=== PATIENT | male | born 1945 | race Caucasian/White ===

== ENCOUNTER 2018-05-15 20:47 | Inpatient (IN) | payer MEDICARE, MEDICAID ==
[2018-05-15] MEDS ORDERED: DILTIAZEM HCL INJ 25 MG/5 ML VIAL IV ONE (20:54)
[2018-05-15] MEDS ORDERED: ASPIRIN 81 MG TABLET, CHEWABLE PO ONE (20:54)
[2018-05-15] MEDS ORDERED: DILTIAZEM HCL/D5W 125 MG/125 ML RTUINJ IV PRN (20:54)
[2018-05-15] MEDS ORDERED: DILTIAZEM HCL INJ 25 MG/5 ML VIAL ONE ×2 (20:59→21:08)
--- NOTE | 2018-05-15 21:02 | ER Document Report ---
ED Cardiac - General Chief Complaint: Palpitations Stated Complaint: PALPITATIONS Time Seen by Provider: 05/15/18 20:54 Notes: 72-year-old male to emergency department chief complaint of chest pain and tachycardia. EMS arrived to find patient with a heart rate in the 170s-180s range. EKG by EMS revealed atrial fibrillation with rapid ventricular response. Cardizem protocol began. Patient received 25 mg bolus of Cardizem followed by diltiazem drip. Rate came down according to EMS to about 108 but by the time he arrived to the emergency department heart rate was back up into the 160-170 range. Patient denied any major symptoms at this time. Denies any chest pain or shortness of breath. Patient does smoke. Has been taking all of his regular medications. The time that EMS arrived he was having some chest pain. Patient did receive aspirin. TRAVEL OUTSIDE OF THE [place] IN LAST 30 DAYS: No - HPI Patient complains to provider of: Chest pain, Chest tightness, Palpitations Was the onset of pain: Sudden - Related Data Allergies/Adverse Reactions: levofloxacin [From Levaquin] Allergy (Unknown, Verified 09/19/15 12:38) uncertain fluticasone propionate [From Advair Diskus] Adverse Reaction (Severe, Verified 09/19/15 12:38) "Can't use my arms" salmeterol xinafoate [From Advair Diskus] Adverse Reaction (Severe, Verified 03/29 12:38) "Can't use my arms" varenicline tartrate [From Chantix] Adverse Reaction (Intermediate, Verified 03/29 12:38) Hallucinations Past Medical History - General Information source: Patient - Social History Smoking Status: Current Every Day Smoker Cigarette use (# per day): Yes Frequency of alcohol use: None Drug Abuse: None Lives with: Alone Family History: CAD, DM - Past Medical History Cardiac Medical History: Reports: Hx Heart Attack - 1998, Hx Hypertension Denies: Hx Atrial Fibrillation, Hx Coronary Artery Disease Pulmonary Medical History: Reports: Hx Asthma, Hx Bronchitis, Hx COPD Denies: Hx Pneumonia Neurological Medical History: Denies: Hx Cerebrovascular Accident, Hx Seizures Endocrine Medical History: Reports: Hx Diabetes Mellitus Type 2 GI Medical History: Reports: Hx Ulcer - HX OF. Denies: Hx Hepatitis, Hx Hiatal Hernia Musculoskeletal Medical History: Reports Hx Arthritis Psychiatric Medical History: Reports: Hx Depression Denies: Hx Attention Deficit Hyperactivity Disorder Infectious Medical History: Denies: Hx Hepatitis Past Surgical History: Reports: Hx Bowel Surgery - sigmoid colon resection 2007. Denies: Hx Open Heart Surgery, Hx Pacemaker - Immunizations Hx Diphtheria, Pertussis, Tetanus Vaccination: No Review of Systems - Review of Systems Notes: Constitutional: denies: Chills, Diaphoresis, Fever, Malaise, Weakness EENT: denies: Eye discharge, Blurred vision, Tearing, Double vision, Nose congestion, Nose discharge, Throat swelling, Mouth pain Cardiovascular: Complaining of chest pain and tachycardia. Heart is racing. Respiratory: denies: Cough, Hurts to breathe, Wheezing, Shortness of breath Gastrointestinal: denies: Abdominal pain, Diarrhea, Nausea, Vomiting, Black stools Genitourinary: denies: Burning, Dysuria, Discharge, Frequency, Flank pain, Hematuria Musculoskeletal: denies: Joint pain, Joint swelling, Muscle pain, Muscle stiffness, back pain Hematologic/Lymphatic: denies: Anemia, Easy bleeding, Easy bruising, Blood clots Neurological/Psychological: denies: Confusion, Dementia, Depression, Loss of consciousness Skin: Denies any rash, lesions, breakdown Constitutional: denies: Fever, Malaise, Weakness Physical Exam - Vital signs Vitals: Temp Pulse Resp BP Pulse Ox 98.1 F 164 H 22 H 180/96 H 98 05/15/18 20:48 05/15/18 20:48 05/15/18 20:48 05/15/18 20:48 05/15/18 20:48 Interpretation: Tachycardic - General General appearance: Appears well, Alert - HEENT Head: Normocephalic, Atraumatic Eyes: Normal Pupils: PERRL - Respiratory Respiratory status: No respiratory distress Chest status: Nontender Breath sounds: Normal Chest palpation: Normal - Cardiovascular Rhythm: Regular, Tachycardia Heart sounds: Normal auscultation Murmur: No - Abdominal Inspection: Normal Distension: No distension Bowel sounds: Normal Tenderness: Nontender Organomegaly: No organomegaly - Back Back: Normal, Nontender - Extremities General upper extremity: Normal inspection, Nontender, Normal color, Normal ROM , Normal temperature General lower extremity: Normal inspection, Nontender, Normal color, Normal ROM , Normal temperature, Normal weight bearing. No: Diego's sign - Neurological Neuro grossly intact: Yes Cognition: Normal Orientation: AAOx4 Sneha Coma Scale Eye Opening: Spontaneous [place] Coma Scale Verbal: Oriented Sneha Coma Scale Motor: Obeys Commands [place] Coma Scale Total: 15 Speech: Normal Motor strength normal: LUE, RUE, LLE, RLE Sensory: Normal - Psychological Associated symptoms: Normal affect, Normal mood - Skin Skin Temperature: Warm Skin Moisture: Dry Skin Color: Normal Course - Re-evaluation Re-evalutation: 05/15/18 22:06 Patient's heart rate now 96. Blood pressure 118/69. On diltiazem drip. Patient does have slightly elevated troponin but this is not unexpected at his age and his heart rate. Patient has already received aspirin. No chest pain at this time. At this time will consult with hospitalist for admission. Anticipate admission shortly. 05/15/18 22:21 Consulted computer lab para professional, Dr. [place]. Recommend starting patient on Lovenox. Repeating EKG. He will see patient in the morning. Will consult with hospitalist for admission at this time. - Vital Signs Vital signs: Temp Pulse Resp BP Pulse Ox 98.1 F 164 H 18 119/76 95 05/15/18 20:48 05/15/18 20:48 05/15/18 21:32 05/15/18 21:32 05/15/18 21:32 - Laboratory Result Diagrams: 05/15/18 20:58 05/15/18 20:58 Laboratory results interpreted by me: 05/15/18 05/15/18 05/15/18 20:58 20:58 20:58 WBC 10.8 H RBC 5.69 H RDW 16.7 H Eosinophils % 6.6 H Absolute Eosinophils 0.7 H BUN 24 H Creatinine 1.63 H Est GFR ( Amer) 51 L Est GFR (Non-Af Amer) 42 L Glucose 164 H Creatine Kinase 179 H CK-MB (CK-2) 5.12 H - EKG Interpretation by Me Additional EKG results interpreted by me: 05/15/18 21:23 Patient with a wide complex tachycardia with heart rates in the 160s. No ST segment elevation or depression. Critical Care Note - Critical Care Note Total time excluding time spent on procedures (mins): 45 Comments: Tachycardia, hypertension, arrhythmia Discharge - Discharge Clinical Impression: Atrial fibrillation with rapid ventricular response, Elevated troponin I level Chronic renal disease Qualifiers: Chronic kidney disease stage: unspecified stage Qualified Code(s): N18.9 - Chronic kidney disease, unspecified Condition: Good Disposition: ADMITTED INPATIENT Admitting Provider: Hospitalist - [facility] Admitted: [facility] Referrals: Yash DIXON MD [Primary Care Provider] - Follow up as needed
[2018-05-15 21:10] LABS: ABSOLUTE BASOPHILS # (AUTO) 0.1 10^3/uL (0.0-0.2); ABSOLUTE EOSINOPHILS # (AUTO) 0.7 10^3/uL (0.0-0.6); ABSOLUTE LYMPHOCYTES (AUTO) 1.9 10^3/uL (0.5-4.7); ABSOLUTE MONOCYTES (AUTO) 0.8 10^3/uL (0.1-1.4); ABSOLUTE NEUT (AUTO) 7.2 10^3/uL (1.7-8.2); BASOPHILS % (AUTO) 1.2 % (0-2); EOSINOPHILS % (AUTO) 6.6 % (0-6); HEMATOCRIT 49.1 % (37.9-51.0); HEMOGLOBIN 16.3 g/dL (13.5-17.0); LYMPHOCYTES % (AUTO) 17.5 % (13-45); MEAN CORPUSCULAR HEMOGLOBIN 28.6 pg (27.0-33.4); MEAN CORPUSCULAR HGB CONC 33.2 g/dL (32.0-36.0); MEAN CORPUSCULAR VOLUME 86 fl (80-97); MONOCYTES % (AUTO) 7.8 % (3-13); PLATELET COUNT 247 10^3/uL (150-450); RED BLOOD COUNT 5.69 10^6/uL (4.35-5.55); RED CELL DISTRIBUTION WIDTH 16.7 % (11.5-14.0); SEGMENTED NEUTROPHILS % (AUTO) 66.9 % (42-78); TOTAL CELLS COUNTED % (AUTO) 100 %; WHITE BLOOD COUNT 10.8 10^3/uL (4.0-10.5)
[2018-05-15 21:26] LABS: ALANINE AMINOTRANSFERASE 32 U/L (21-72); ALBUMIN 4.3 g/dL (3.5-5.0); ALKALINE PHOSPHATASE 87 U/L (38-126); ANION GAP 15 (5-19); ASPARTATE AMINO TRANSFERASE 22 U/L (17-59); BILIRUBIN,DIRECT 0.3 mg/dL (0.0-0.4); BILIRUBIN,TOTAL 0.4 mg/dL (0.2-1.3); BLOOD UREA NITROGEN 24 mg/dL (7-20); CALCIUM 9.7 mg/dL (8.4-10.2); CARBON DIOXIDE 25 mmol/L (22-30); CHLORIDE 102 mmol/L (98-107); CREATINE KINASE 179 U/L (55-170); GLUCOSE 164 mg/dL (75-110); SODIUM 141.9 mmol/L (137-145); TOTAL PROTEIN 7.9 g/dL (6.3-8.2)
--- NOTE | 2018-05-15 21:28 | RADIOLOGY REPORT (SQ) ---
EXAM DESCRIPTION: CHEST SINGLE VIEW COMPLETED DATE/TIME: 05/15/2018 9:09 pm REASON FOR STUDY: sob COMPARISON: 06/29/2014 EXAM PARAMETERS: NUMBER OF VIEWS: One view. TECHNIQUE: Single frontal radiographic view of the chest acquired. RADIATION DOSE: NA LIMITATIONS: None. FINDINGS: LUNGS AND PLEURA: No opacities, masses or pneumothorax. No pleural effusion. MEDIASTINUM AND HILAR STRUCTURES: No masses. Contour normal. HEART AND VASCULAR STRUCTURES: Heart normal in size. Normal vasculature. BONES: No acute findings. HARDWARE: None in the chest. OTHER: No other significant finding. IMPRESSION: NO ACUTE RADIOGRAPHIC FINDING IN THE CHEST. TECHNICAL DOCUMENTATION: JOB ID: [id number] [facility]- All Rights Reserved Reading location - IP/workstation name: [email or web address]
[2018-05-15 21:39] LABS: CREATINE KINASE MB 5.12 ng/mL (<4.55)
[2018-05-15 21:42] LABS: TROPONIN I 0.227 ng/mL
--- NOTE | 2018-05-15 21:53 | EKG REPORT ---
SEVERITY:- ABNORMAL ECG - SUPRAVENTRICULAR TACHYCARDIA CONSIDER PAT VS AFL WITH 2:1 CONDUCTION REPOLARIZATION ABNORMALITY, PROB RATE RELATED : Confirmed by: Stephany Conway 15-May-2018 21:52:38
[2018-05-15] MEDS ORDERED: NORMAL SALINE 1000 ML 1,000 ML IV ONE (21:59)
[2018-05-15] MEDS: ENOXAPARIN SODIUM INJ 80 MG/0.8 ML DISP.SYRIN SUBCUT SCH (22:39)
[2018-05-15 22:42] LABS: INTERNATIONAL RATION (INR) 0.88; PROTHROMBIN TIME 12.4 SEC (11.4-15.4)
[2018-05-15 22:43] LABS: PARTIAL THROMBOPLASTIN TIME 30.2 SEC (23.5-35.8)
[2018-05-15 23:06] LABS: APPEARANCE,URINE CLEAR; BILIRUBIN,URINE NEGATIVE (NEGATIVE); COLOR,URINE STRAW; GLUCOSE, URINE 50 mg/dL (NEGATIVE); KETONES,URINE NEGATIVE (NEGATIVE); LEUKOCYTE ESTERASE,URINE NEGATIVE (NEGATIVE); NITRITE,URINE NEGATIVE (NEGATIVE); PROTEIN,URINE 100 mg/dL (NEGATIVE); URINE SPECIFIC GRAVITY 1.009; UROBILINOGEN,URINE NEGATIVE mg/dL (<2.0)
--- NOTE | 2018-05-16 00:34 | PDOC H&P ---
History of Present Illness Admission Date/PCP: 05/15/18 22:36 Yash DIXON MD Patient complains of: Chest pain, shortness of breath, palpitation. History of Present Illness: BETSY VINES is a 72 year old male with past medical history of CAD and OR in 1998, hypertension, COPD who is currently active smoker, diabetes presents to the emergency room with complaint of chest pain with palpitation and shortness of breath. Patient's chest pain started today evening at rest associated with shortness of breath. Patient denied diaphoresis or dizziness. Patient denies fever or chills or cough. Patient reported chest pain and retrosternal area which was 6 out of 10. EMS arrived patient was found to be in A. fib with RVR with heart rate of 180. Patient does not have a history of atrial fibrillation. On arrival to emergency room he was afebrile with initial heart rate of 164. Blood pressure was elevated. EKG showed atrial fibrillation with RVR and ST T changes in lateral leads. Patient was given nitroglycerin and was started on Cardizem drip after bolus. Patient is currently chest pain-free. His chest x- ray showed no acute process. Troponin came back elevated at 0.22. BNP is normal. Creatinine is 1.6; which is around his baseline. Yard Jacker was consulted from the emergency room. Recommended heparin Lovenox full dose along with aspirin. Patient was referred to hospital service. Patient is currently in sinus rhythm with controlled rate. Past Medical History Cardiac Medical History: Reports: Myocardial Infarction - 1998, Hypertension Denies: Atrial Fibrillation, Coronary Artery Disease Pulmonary Medical History: Reports: Asthma, Bronchitis, Chronic Obstructive Pulmonary Disease (COPD) Denies: Pneumonia Neurological Medical History: Denies: Seizures Endocrine Medical History: Reports: Diabetes Mellitus Type 2 GI Medical History: Denies: Hepatitis, Hiatal Hernia Musculoskeltal Medical History: Reports: Arthritis Psychiatric Medical History: Reports: Depression Denies: Attention Deficit Hyperactivity Disorder Hematology: Denies: Anemia, Sickle Cell Disease Past Surgical History Past Surgical History: Denies: Pacemaker Social History Information Source: Patient Lives with: Alone Smoking Status: Current Every Day Smoker Frequency of Alcohol Use: None Hx Recreational Drug Use: No Hx Prescription Drug Abuse: No Family History Family History: CAD, DM Parental Family History Reviewed: No Children Family History Reviewed: No Sibling(s) Family History Reviewed.: No Medication/Allergy Home Medications: Albuterol Sulfate [Albuterol Sulfate 2.5mg/3 mL] 1 vial IH Q4 PRN #60 vial 06/29 Amlodipine Besylate 10 mg PO DAILY 06/29/14 Clonidine HCl [Catapres] 0.4 mg PO TID 06/29/14 Diazepam [Valium 5 mg Tablet] 5 mg PO BID PRN 06/29/14 Glyburide [Diabeta 2.5 mg Tablet] 2.5 mg PO BID 06/29/14 Hydrochlorothiazide 25 mg PO DAILY 06/29/14 Levothyroxine Sodium [Synthroid 0.112 mg Tablet] 0.112 mcg PO DAILY 06/29/14 Losartan Potassium 100 mg PO DAILY 06/29/14 Oxycodone HCl/Acetaminophen [Oxycodone-Acetaminophen 5-325] 1 - 2 tab PO PRN Budesonide/Formoterol Fumarate [Symbicort HFA 160-4.5 mcg Inhaler 6 gm] 2 puff IH Q12 #1 inhaler 07/01/14 Tiotropium [place] [Spiriva Handihaler 5 Cap/Kit (18 Mcg/Cap)] 1 cap IH QHS #0 kit 07/01/14 Budesonide/Formoterol Fumarate [Symbicort HFA 160-4.5 mcg Inhaler 6 gm] 2 PO BID 09/21/15 Metformin HCl 2 tab PO BID 09/21/15 Allergies/Adverse Reactions: levofloxacin [From Levaquin] Allergy (Unknown, Verified 09/19/15 12:38) uncertain fluticasone propionate [From Advair Diskus] Adverse Reaction (Severe, Verified 09/19/15 12:38) "Can't use my arms" salmeterol xinafoate [From Advair Diskus] Adverse Reaction (Severe, Verified 03/29 12:38) "Can't use my arms" varenicline tartrate [From Chantix] Adverse Reaction (Intermediate, Verified 03/29 12:38) Hallucinations Review of Systems All systems: reviewed and no additional remarkable complaints except as stated Physical Exam Vital Signs: Temp Pulse Resp BP Pulse Ox 98.1 F 164 H 15 137/76 H 95 05/15/18 20:48 05/15/18 20:48 05/15/18 23:16 05/15/18 23:16 05/15/18 23:26 Intake & Output 05/14/18 05/15/18 05/16/18 06:59 06:59 06:59 Intake Total 1000 Balance 1000 General appearance: PRESENT: no acute distress, cooperative, well-developed, well-nourished Head exam: PRESENT: atraumatic, normocephalic Eye exam: ABSENT: conjunctival injection, conjunctiva pink, conjunctiva pale, EOMI, nystagmus, periorbital swelling, PERRLA, scleral icterus, other Ear exam: ABSENT: bleeding, drainage, normal external ear exam, TM's normal bilaterally, other Mouth exam: PRESENT: moist Neck exam: ABSENT: carotid bruit, JVD, lymphadenopathy Respiratory exam: PRESENT: decreased breath sounds, wheezes Cardiovascular exam: PRESENT: irregular rhythm, +S1, +S2, tachycardia. ABSENT: rubs, systolic murmur GI/Abdominal exam: PRESENT: normal bowel sounds, soft. ABSENT: organolmegaly, tenderness Rectal exam: PRESENT: deferred Gentrourinary exam: ABSENT: ecchymosis, erythema, lacerations, lesions, scrotal swelling, testicular tenderness, urethral discharge, indwelling catheter, other Extremities exam: ABSENT: calf tenderness, clubbing, full ROM, joint swelling, pedal edema, tenderness, +1 edema, +2 edema, other Musculoskeletal exam: PRESENT: ambulatory Neurological exam: PRESENT: alert, altered, awake, oriented to person, oriented to place, oriented to time, oriented to situation, CN II-XII grossly intact. ABSENT: motor sensory deficit Psychiatric exam: ABSENT: suicidal ideation Skin exam: ABSENT: rash Results Laboratory Results: All labs reviewed. EKG Comments: Personally reviewed by me EKG shows atrial fibrillation with RVR and nonspecific ST-T changes in lateral leads. Impressions: Chest X-Ray 05/15/18 20:54 IMPRESSION: NO ACUTE RADIOGRAPHIC FINDING IN THE CHEST. Status: Image reviewed by me Assessment & Plan - Diagnosis (1) Atrial fibrillation with rapid ventricular response Is this a current diagnosis for this admission?: Yes Plan: Patient with new onset atrial fibrillation with RVR. Patient is started on Cardizem drip however he is converted back to sinus rhythm with rate is controlled. We will continue Lovenox full dose. Will continue cycle cardiac enzymes. Patient is currently chest pain-free. Consult cardiology service. (2) Elevated troponin I level Is this a current diagnosis for this admission?: Yes Plan: Patient had a chest pain which has resolved now. Possible non-ST elevation OR or rate induced demand ischemia. Will continue serial cardiac enzyme and continue aspirin and start on Lipitor and beta-kimmie. Cardiology consultation. 2D echo cardiogram. (3) COPD (chronic obstructive pulmonary disease) Is this a current diagnosis for this admission?: No Plan: Stable without exacerbation. Will continue as needed nebs. (4) CKD (chronic kidney disease), stage III Is this a current diagnosis for this admission?: No Plan: His creatinine is at baseline. (5) Diabetes 1.5, managed as type 2 Is this a current diagnosis for this admission?: No Plan: Blood glucose is stable will start patient on insulin sliding scale. - Time Time Spent: 50 to 70 Minutes - Inpatient Certification Based on my medical assessment, after consideration of the patient's comorbidities, presenting symptoms, or acuity I expect that the services needed warrant INPATIENT care.: Yes I certify that my determination is in accordance with my understanding of Medicare's requirements for reasonable and necessary INPATIENT services [42 CFR 412.3e].: Yes Medical Necessity: Need Close Monitoring Due to Risk of Patient Decompensation, Need For Continuous Telemetry Monitoring
[2018-05-16] MEDS: IPRATROPIUM/ALBUTEROL 0.5-2.5 MG/3 ML AMPUL NEB SCH ×4 (01:11→20:10)
[2018-05-16 03:45] LABS: CHOLESTEROL 180.89 mg/dL (0-200); TRIGLYCERIDES 123 mg/dL (<150)
[2018-05-16] MEDS: NITROGLYCERIN 0.4 MG/TAB 25 TAB/BOTTLE SL PRN ×3 (03:51→11:43)
[2018-05-16 03:55] LABS: DIRECT LDL 127 mg/dL (<100)
[2018-05-16 03:59] LABS: TROPONIN I 12.4 ng/mL
[2018-05-16] MEDS ORDERED: DILTIAZEM HCL INJ 25 MG/5 ML VIAL ONE ×2 (06:30→06:41)
--- NOTE | 2018-05-16 09:24 | EKG REPORT ---
SEVERITY:- ABNORMAL ECG - SINUS RHYTHM NONSPECIFIC T ABNORMALITIES, LATERAL LEADS : Confirmed by: Stephany Conway 16-May-2018 09:23:14
--- NOTE | 2018-05-16 09:24 | EKG REPORT ---
SEVERITY:- BORDERLINE ECG - SINUS RHYTHM PROBABLE LEFT ATRIAL ABNORMALITY : Confirmed by: Stephany Conway 16-May-2018 09:23:19
[2018-05-16 09:29] LABS: TROPONIN I 14.1 ng/mL
[2018-05-16] MEDS ORDERED: METOPROLOL TARTRATE 25 MG TABLET PO SCH (10:00)
[2018-05-16] MEDS: ASPIRIN 325 MG TABLET, ENT COATED PO SCH (11:49)
[2018-05-16] MEDS: ENOXAPARIN SODIUM INJ 80 MG/0.8 ML DISP.SYRIN SUBCUT SCH ×2 (11:49→21:19)
[2018-05-16] MEDS ORDERED: MAG HYDROX/AL HYDROX/SIMETH SUSP 30 ML UDCUP ONE (11:57)
[2018-05-16] MEDS ORDERED: LANSOPRAZOLE 30 MG TAB.RAP.DR PO ONE (12:29)
[2018-05-16] MEDS ORDERED: FUROSEMIDE INJ/PF 20 MG/2 ML SDV IV ONE (13:00)
[2018-05-16] MEDS ORDERED: LOSARTAN POTASSIUM 50 MG TABLET PO ONE (13:00)
[2018-05-16] MEDS ORDERED: METOPROLOL TARTRATE 25 MG TABLET PO ONE ×2 (13:00→18:00)
[2018-05-16 15:24] LABS: CREATINE KINASE MB 13.1 ng/mL (<4.55); TROPONIN I 9.9 ng/mL
--- NOTE | 2018-05-16 18:20 | PDOC PROGRESS REPORT ---
Subjective Progress Note for:: 05/16/18 Subjective:: She is 72 years old male patient admitted yesterday night with chief complaint of chest pain and palpitation. Patient has history of coronary artery disease, MT, COPD, hypertension and tobacco dependence. His first troponin is 0.227 the next 12.4 and subsequent is 14.1. Patient also found to have new onset A. fib with RVR of 164. Patient has been started on Cardizem drip and Nitrostat for his chest pain this afternoon patient was evaluated by Dr. Dennis who initially planned to transfer him but after he reviewed his echo results which showed ejection fraction of 20% he changed his mind. And recommended medical management Reason For Visit: NSTEMI;A FIB RVR Physical Exam Vital Signs: Temp Pulse Resp BP Pulse Ox 98.6 F 105 H 18 159/97 H 94 05/16/18 16:58 05/16/18 16:58 05/16/18 16:58 05/16/18 16:58 05/16/18 16:58 Intake & Output 05/15/18 05/16/18 05/17/18 06:59 06:59 06:59 Intake Total 1000 325 Output Total 1790 Balance 1000 -1465 Weight 84.2 kg General appearance: PRESENT: mild distress Head exam: PRESENT: atraumatic Mouth exam: PRESENT: moist Neck exam: ABSENT: carotid bruit, JVD, lymphadenopathy, thyromegaly Respiratory exam: PRESENT: wheezes - Mild Cardiovascular exam: PRESENT: irregular rhythm, tachycardia GI/Abdominal exam: PRESENT: normal bowel sounds, soft. ABSENT: distended, guarding, mass, organolmegaly, rebound, tenderness Neurological exam: PRESENT: alert, awake, oriented to time, oriented to situation Psychiatric exam: PRESENT: normal mood Results Laboratory Results: 05/16/18 02:55 Triglycerides 123 Cholesterol 180.89 LDL Cholesterol Direct 127 H VLDL Cholesterol 25.0 HDL Cholesterol 28 L 05/16/18 05/16/18 05/16/18 02:55 08:42 14:46 CK-MB (CK-2) 16.00 H 18.00 H 13.10 H Troponin I 12.400 14.100 9.900 Impressions: Chest X-Ray 05/15/18 20:54 IMPRESSION: NO ACUTE RADIOGRAPHIC FINDING IN THE CHEST. Assessment & Plan - Diagnosis (1) Non-STEMI (non-ST elevated myocardial infarction) Is this a current diagnosis for this admission?: Yes Plan: Medical management recommended by service order dispatcher chief. (2) New onset a-fib Is this a current diagnosis for this admission?: Yes Plan: On Cardizem drip (3) COPD (chronic obstructive pulmonary disease) Qualifiers: Emphysema type: unspecified Is this a current diagnosis for this admission?: Yes Plan: As needed breathing treatment (4) Type 2 diabetes mellitus Is this a current diagnosis for this admission?: Yes Plan: Continue home medication and sliding scale.
[2018-05-16] MEDS: MAG HYDROX/AL HYDROX/SIMETH SUSP 30 ML UDCUP PO PRN (18:28)
[2018-05-16] MEDS ORDERED: DILTIAZEM HCL/D5W 125 MG/125 ML RTUINJ IV PRN (19:06)
--- NOTE | 2018-05-16 19:18 | XCELERA REPORT ---
[address] [address] Transthoracic Echocardiogram Report Name: BETSY VINES V Age: 72 yrs Gender: Male : 1945 Patient Status: Inpatient [address] Study Date: 05/16/2018 11:10 AM Procedure: A two-dimensional transthoracic echocardiogram with color flow Doppler was performed. The study was technically difficult with many images being suboptimal in quality. Study Quality: Technically suboptimal. Reason For Study: NSTEMI / Atrial Flutter History: NSTEMI / Atrial Flutter. Ordering Physician: TANA DUGGAN Performed By: Stephanie Zayas Interpretation Summary The left ventricle is mildly dilated. There is normal left ventricular wall thickness. LV EF is 25% Left ventricular systolic function is severely reduced. Doppler measurements suggest impaired left ventricular relaxation, which is associated with grade I/IV or mild diastolic dysfunction There is severe global hypokinesis of the left ventricle. There is no thrombus. The right ventricle is not well visualized secondary to technical limitations Not well seen.Probably normal size. There is no evidence of mitral valve prolapse. There is no vegetation seen on the mitral valve. There is no mitral valve stenosis. There is no mitral regurgitation noted. There is no aortic valve stenosis No aortic regurgitation is present. There is no tricuspid stenosis. No tricuspid regurgitation. Unable to calculate RVSP due to insufficient TR jet. The aortic root is not well visualized. There is no pericardial effusion. MMode/2D Measurements & Calculations RVDd: 3.3 cm LVIDd: 5.5 cm FS: 26.3 % Ao root diam: 3.0 cm IVSd: 1.0 cm LVIDs: 4.1 cm EDV(Teich): 149.8 ml Ao root area: 7.0 cm2 LVPWd: 1.0 cm ESV(Teich): 73.4 ml EF(Teich): 51.0 % Doppler Measurements & Calculations MV E max elliot: MV dec slope: Ao V2 max: LV V1 max P.6 cm/sec 627.2 cm/sec2 84.3 cm/sec 2.7 mmHg MV A max elliot: MV dec time: 0.14 secAo max PG: LV V1 max: 90.0 cm/sec 2.8 mmHg 81.9 cm/sec MV E/A: 1.00 PA V2 max: 87.4 cm/sec PA max P.1 mmHg Left Ventricle The left ventricle is mildly dilated. There is normal left ventricular wall thickness. LV EF is 25%. Left ventricular systolic function is severely reduced. Doppler measurements suggest impaired left ventricular relaxation, which is associated with grade I/IV or mild diastolic dysfunction. There is severe global hypokinesis of the left ventricle. There is no thrombus. Right Ventricle The right ventricle is not well visualized secondary to technical limitations. Atria Right atrium not well visualized secondary to technical limitations. Not well seen.Probably normal size. Mitral Valve There is no evidence of mitral valve prolapse. There is no vegetation seen on the mitral valve. There is no mitral valve stenosis. There is no mitral regurgitation noted. Aortic Valve There is no aortic valvular vegetation. There is no aortic valve stenosis. No aortic regurgitation is present. Tricuspid Valve There is no tricuspid stenosis. No tricuspid regurgitation. Unable to calculate RVSP due to insufficient TR jet. Pulmonic Valve There is no pulmonic valvular stenosis. There is no pulmonic valvular regurgitation. Great Vessels The aortic root is not well visualized. Effusions There is no pericardial effusion. : TANA DUGGAN > Harmony Dennis
[2018-05-16] MEDS: FUROSEMIDE INJ/PF 20 MG/2 ML SDV IV SCH (21:18)
[2018-05-16] MEDS: METOPROLOL TARTRATE 25 MG TABLET PO SCH (21:18)
[2018-05-16] MEDS: ATORVASTATIN CALCIUM 80 MG TABLET PO SCH (21:18)
[2018-05-16] MEDS: LOSARTAN POTASSIUM 50 MG TABLET PO SCH (21:19)
--- NOTE | 2018-05-16 22:34 | EKG REPORT ---
SEVERITY:- ABNORMAL ECG - SINUS RHYTHM NONSPECIFIC T ABNORMALITIES, LATERAL LEADS : Confirmed by: Stephany Conway 16-May-2018 22:33:14
[2018-05-17] MEDS: IPRATROPIUM/ALBUTEROL 0.5-2.5 MG/3 ML AMPUL NEB SCH ×4 (02:05→19:38)
[2018-05-17] MEDS: ONDANSETRON HCL INJ/PF 4 MG/2 ML SDV IV PRN (05:29)
[2018-05-17 06:14] LABS: HEMATOCRIT 54.4 % (37.9-51.0); HEMOGLOBIN 17.9 g/dL (13.5-17.0); MEAN CORPUSCULAR HEMOGLOBIN 28.4 pg (27.0-33.4); MEAN CORPUSCULAR HGB CONC 32.9 g/dL (32.0-36.0); MEAN CORPUSCULAR VOLUME 86 fl (80-97); PLATELET COUNT 256 10^3/uL (150-450); RED BLOOD COUNT 6.29 10^6/uL (4.35-5.55); RED CELL DISTRIBUTION WIDTH 16.4 % (11.5-14.0); WHITE BLOOD COUNT 12.2 10^3/uL (4.0-10.5)
[2018-05-17 06:38] LABS: CREATINE KINASE MB 5.51 ng/mL (<4.55)
[2018-05-17 06:40] LABS: TROPONIN I 5.09 ng/mL
[2018-05-17] MEDS: ENOXAPARIN SODIUM INJ 80 MG/0.8 ML DISP.SYRIN SUBCUT SCH (10:16)
[2018-05-17] MEDS: FUROSEMIDE INJ/PF 20 MG/2 ML SDV IV SCH ×2 (10:18→21:26)
[2018-05-17] MEDS: METOPROLOL TARTRATE 25 MG TABLET PO SCH (10:19)
[2018-05-17] MEDS: ASPIRIN 325 MG TABLET, ENT COATED PO SCH (10:19)
[2018-05-17] MEDS: LOSARTAN POTASSIUM 50 MG TABLET PO SCH ×2 (10:20→21:25)
[2018-05-17] MEDS: PANTOPRAZOLE SODIUM 40 MG VIAL IV SCH (10:21)
[2018-05-17] MEDS ORDERED: LACTULOSE SYRUP 20 GM/30 ML UDCUP PO PRN (12:39)
--- NOTE | 2018-05-17 13:07 | PDOC PROGRESS REPORT ---
Subjective Progress Note for:: 05/17/18 - seen on rounds this morning Subjective:: states she feel fine but is constipated. states he has pain on LLQ abdomen this morning Reason For Visit: NSTEMI;A FIB RVR Physical Exam Vital Signs: Temp Pulse Resp BP Pulse Ox 97.9 F 81 16 151/69 H 93 05/17/18 07:00 05/17/18 09:09 05/17/18 09:09 05/17/18 09:00 05/17/18 09:09 Intake & Output 05/16/18 05/17/18 05/18/18 06:59 06:59 06:59 Intake Total 1000 925 Output Total 2890 Balance 1000 -1965 Weight 192 lb 7.417 oz General appearance: PRESENT: no acute distress Head exam: PRESENT: atraumatic, normocephalic Eye exam: PRESENT: EOMI, PERRLA. ABSENT: scleral icterus Mouth exam: PRESENT: neck supple, tongue midline Teeth exam: PRESENT: poor dentation Neck exam: ABSENT: JVD, tracheal deviation Respiratory exam: PRESENT: clear to auscultation zay, decreased breath sounds - slightly decreased breath sounds bilaterally- mostly at the bases, symmetrical. ABSENT: crackles Cardiovascular exam: PRESENT: +S1, +S2 Pulses: PRESENT: +2 pedal pulses bilateral GI/Abdominal exam: PRESENT: normal bowel sounds, soft, tenderness - LLQ TTP, no rebound/guarding. ABSENT: firm, guarding Extremities exam: ABSENT: +2 edema Neurological exam: PRESENT: alert, awake, oriented to person, oriented to place , oriented to time, CN II-XII grossly intact Skin exam: PRESENT: dry, warm Results Laboratory Results: 05/17/18 05:45 05/17/18 05:45 WBC 12.2 H RBC 6.29 H Hgb 17.9 H Hct 54.4 H MCV 86 MCH 28.4 MCHC 32.9 RDW 16.4 H Plt Count 256 05/16/18 05/16/18 05/16/18 02:55 08:42 14:46 CK-MB (CK-2) 16.00 H 18.00 H 13.10 H Troponin I 12.400 14.100 9.900 05/17/18 05:45 CK-MB (CK-2) 5.51 H Troponin I 5.090 Impressions: Chest X-Ray 05/15/18 20:54 IMPRESSION: NO ACUTE RADIOGRAPHIC FINDING IN THE CHEST. Assessment & Plan - Diagnosis (1) Atrial fibrillation with rapid ventricular response Is this a current diagnosis for this admission?: Yes (2) New onset a-fib Is this a current diagnosis for this admission?: Yes (3) COPD (chronic obstructive pulmonary disease) Is this a current diagnosis for this admission?: No (4) Elevated troponin I level Is this a current diagnosis for this admission?: Yes (5) Systolic HF (heart failure) Qualifiers: Heart failure chronicity: unspecified Qualified Code(s): I50.20 - Unspecified systolic (congestive) heart failure Is this a current diagnosis for this admission?: Yes (6) Chronic renal disease Qualifiers: Chronic kidney disease stage: unspecified stage Qualified Code(s): N18.9 - Chronic kidney disease, unspecified Is this a current diagnosis for this admission?: Yes (7) Constipation Is this a current diagnosis for this admission?: Yes - Time Time Spent with patient: 25-34 minutes - Plan Summary Plan Summary: A.fib w/ RVR- he was sinus but last night he went into A. Fib again and started back on cardizem. he's started on metoprolol also. Spoke drafter plumbing and evaluated patient myself. he keeps going back into A.fib when off the cardizem. Cardiology recommends increase metoprolol 50-->75mg BID- monitor HR closely. Will stop cardizem since he converted to sinus now. will stop lovenox weight/renal based. Cardiology recommend Eliquis 2.5mg BID starting today. NSTEMI- troponin trending down. Cardiology is following. ?stress test. Patient is still indecisive. He denies chest pain. Systolic CHF- i do not think he's in HF now. ECHO shows EF of 25%. Cardiology is following. Will start on strict I/Os and daily weights . Constipation- c/o LLQ abdominal pain- hasn't had BM in >3 days. states he takes lactulose normally- will start back on PRN lactulose. states miralax or colace doesn't work for him. he does have a history of colon resection in 2007 due to "diverticulitis" as per patient.
--- NOTE | 2018-05-17 14:05 | CONSULTATION REPORT E ---
Consultation Report NAME: BETSY VINES : 1945 AGE: 72Y DATE: 05/16/2018 328 A TO: ANDRE JOSHI M.D. FROM: TANA CAO M.D. Requesting Physician Note that the patient was seen at 9:30 a.m. on 05/16/2018. REASON FOR CONSULTATION: Atrial flutter, paroxysmal, converted to sinus rhythm on Cardizem drip, admitted with chest pain and palpitations and also burning pain in the epigastrium with significantly elevated troponin I, which is suggestive of non-ST elevation [place]. HISTORY OF PRESENT ILLNESS: The patient and significant other, girlfriend, are very poor historians. The patient is a noncompliant 72-year-old smoker with a history of coronary artery disease and a history of [place] in 1998, history of hypertension, COPD, who is currently an active smoker and history of diabetes mellitus and history of GERD. In the past few days, he has been having increasing shortness of breath. He also has been having chest pain and also burning pain in the epigastrium. The chest pain was not relieved with nitroglycerin. He also states that he had palpitations and *------* they found him to be with a heart rate of 170 beats per minute with narrow complex suggestive of SVT and the patient was started on a Cardizem drip and converted to sinus rhythm. Review of the strips and the patient's EKG is suggestive of atrial flutter. The patient again had recurrence of atrial flutter with rapid ventricular response in the emergency room and subsequently converted to sinus rhythm. At present, he has no chest pain, but he has burning sensation in the epigastrium. The burning sensation in the epigastrium is much improved with Maalox, although nitroglycerin has not helped it. He states that the burning pain he gets only after eating. END OF DICTATION DICTATING PHYSICIAN: ANDRE JOSHI M.D. [id number] PHY#: [id number] ID: [id number] JOB#: [id number] ACCT: [id number] cc:ANDRE JOSHI M.D. >
[2018-05-17] MEDS ORDERED: METOPROLOL TARTRATE 25 MG TABLET PO ONE (14:30)
[2018-05-17] MEDS: APIXABAN 2.5 MG TABLET PO SCH ×2 (14:39→20:25)
[2018-05-17] MEDS: LACTULOSE SYRUP 20 GM/30 ML UDCUP PO PRN (14:39)
[2018-05-17 14:46] LABS: FREE T3 2.88 pg/mL (2.77-5.27); FREE T4 (FREE THYROXINE) 1.44 ng/dL (0.78-2.19)
[2018-05-17 15:00] LABS: THYROID STIMULATING HORMONE 3.41 uIU/mL (0.47-4.68)
[2018-05-17] MEDS ORDERED: LACTULOSE SYRUP 20 GM/30 ML UDCUP PO SCH (18:00)
[2018-05-17] MEDS: HYDRALAZINE HCL INJ/PF 20 MG/1 ML SDV IV PRN (18:12)
--- NOTE | 2018-05-17 18:21 | EKG REPORT ---
SEVERITY:- ABNORMAL ECG - PAF, SINUS RHYTHM NOTED LATER PART OF EKG PROLONGED QT INTERVAL : Confirmed by: Stephany Conway 17-May-2018 18:19:55
[2018-05-17] MEDS ORDERED: ALBUTEROL SULFATE HFA (90 MCG/PUFF) 200 PUFF/8.5 GM MDI IH PRN (19:00)
[2018-05-17] MEDS ORDERED: DILTIAZEM HCL/D5W 125 MG/125 ML RTUINJ IV PRN (19:37)
[2018-05-17] MEDS: ATORVASTATIN CALCIUM 80 MG TABLET PO SCH (21:24)
[2018-05-17] MEDS: HYDRALAZINE HCL 25 MG TABLET PO SCH (21:25)
[2018-05-17] MEDS: METOPROLOL TARTRATE 100 MG TABLET PO SCH (21:25)
[2018-05-17] MEDS ORDERED: METOPROLOL TARTRATE 25 MG TABLET PO SCH ×2 (22:00)
[2018-05-17] MEDS: BUDESONIDE/FORMOTEROL 160-4.5 MCG 60 PUFF/6 GM MDI IH SCH (23:06)
[2018-05-18] MEDS: IPRATROPIUM/ALBUTEROL 0.5-2.5 MG/3 ML AMPUL NEB SCH ×4 (01:17→20:23)
[2018-05-18] MEDS: HYDRALAZINE HCL INJ/PF 20 MG/1 ML SDV IV PRN (03:44)
[2018-05-18] MEDS: HYDRALAZINE HCL 25 MG TABLET PO SCH (05:32)
[2018-05-18 05:49] LABS: CREATINE KINASE MB 3.3 ng/mL (<4.55); TROPONIN I 3.04 ng/mL
[2018-05-18] MEDS ORDERED: LEVOTHYROXINE SODIUM 0.112 MG TABLET PO SCH (06:00)
[2018-05-18] MEDS ORDERED: LEVOTHYROXINE SODIUM 0.025 MG TABLET PO SCH (06:00)
[2018-05-18] MEDS: INSULIN LISPRO 100 UNIT/ML 3 ML VIAL SUBCUT PRN ×3 (08:04→22:02)
[2018-05-18] MEDS: TIOTROPIUM BROMIDE DPI 5 CAP/KIT (18 MCG/CAP) IH SCH (09:26)
[2018-05-18] MEDS: LOSARTAN POTASSIUM 50 MG TABLET PO SCH ×2 (09:27→22:14)
[2018-05-18] MEDS: TAMSULOSIN HCL 0.4 MG CAP.SR.24H PO SCH (09:27)
[2018-05-18] MEDS: METOPROLOL TARTRATE 100 MG TABLET PO SCH ×2 (09:28→21:59)
[2018-05-18] MEDS: APIXABAN 2.5 MG TABLET PO SCH ×2 (09:28→17:00)
[2018-05-18] MEDS: FUROSEMIDE INJ/PF 20 MG/2 ML SDV IV SCH ×2 (09:28→22:00)
[2018-05-18] MEDS: PANTOPRAZOLE SODIUM 40 MG VIAL IV SCH (09:29)
[2018-05-18] MEDS: BUDESONIDE/FORMOTEROL 160-4.5 MCG 60 PUFF/6 GM MDI IH SCH ×2 (09:29→23:20)
[2018-05-18] MEDS: OXYCODONE-ACETAMINOPHEN 5-325 MG TABLET PO PRN (09:39)
[2018-05-18] MEDS ORDERED: METFORMIN HCL 500 MG TABLET PO SCH (10:00)
--- NOTE | 2018-05-18 10:46 | EKG REPORT ---
SEVERITY:- ABNORMAL ECG - SINUS RHYTHM NONSPECIFIC T ABNORMALITIES, LATERAL LEADS BORDERLINE PROLONGED QT INTERVAL : Confirmed by: Stephany Conway 18-May-2018 10:45:47
[2018-05-18] MEDS: HYDRALAZINE HCL 50 MG TABLET PO SCH ×2 (13:21→21:58)
[2018-05-18] MEDS ORDERED: HYDRALAZINE HCL 25 MG TABLET PO SCH (14:00)
--- NOTE | 2018-05-18 14:22 | PDOC PROGRESS REPORT ---
Subjective Progress Note for:: 05/18/18 Subjective:: states he's having back pain- states he has chronic pain Reason For Visit: NSTEMI;A FIB RVR Physical Exam Vital Signs: Temp Pulse Resp BP Pulse Ox 97.7 F 98 18 166/87 H 96 05/18/18 11:26 05/18/18 13:45 05/18/18 13:45 05/18/18 12:00 05/18/18 13:45 Intake & Output 05/17/18 05/18/18 05/19/18 06:59 06:59 06:59 Intake Total 925 1000 436 Output Total 2890 790 450 Balance -1965 210 -14 Weight 192 lb 7.417 oz 196 lb 10.437 oz General appearance: PRESENT: no acute distress, well-developed, well-nourished Head exam: PRESENT: atraumatic, normocephalic Eye exam: PRESENT: EOMI, PERRLA Ear exam: PRESENT: normal external ear exam Mouth exam: PRESENT: moist, neck supple Neck exam: ABSENT: tracheal deviation Respiratory exam: PRESENT: clear to auscultation zay, decreased breath sounds - at the bases bilaterally with expiratory wheezing, symmetrical Cardiovascular exam: PRESENT: RRR, +S1, +S2 Pulses: PRESENT: +2 pedal pulses bilateral Extremities exam: ABSENT: +2 edema Neurological exam: PRESENT: alert, oriented to person, oriented to place, oriented to time, oriented to situation, CN II-XII grossly intact Skin exam: PRESENT: dry, warm Results Laboratory Results: 05/17/18 05:45 05/16/18 02:55 TSH 3.41 Free T4 1.44 Free T3 pg/mL 2.88 05/16/18 05/16/18 05/16/18 02:55 08:42 14:46 Creatine Kinase CK-MB (CK-2) 16.00 H 18.00 H 13.10 H Troponin I 12.400 14.100 9.900 05/17/18 05/17/18 05/18/18 05:45 23:26 04:40 Creatine Kinase 230 H CK-MB (CK-2) 5.51 H Troponin I 5.090 3.480 05/18/18 04:40 Creatine Kinase CK-MB (CK-2) 3.30 Troponin I 3.040 Impressions: Chest X-Ray 05/15/18 20:54 IMPRESSION: NO ACUTE RADIOGRAPHIC FINDING IN THE CHEST. Assessment & Plan - Diagnosis (1) Atrial fibrillation with rapid ventricular response Is this a current diagnosis for this admission?: Yes Plan: last night he was started back on cardizem since he went back into a. fib w/ RVR. cardiology restarted cardizem. metoprolol 100mg now. he's in sinus now. spoke with cardiology Dr [place] regarding patient today (2) New onset a-fib Is this a current diagnosis for this admission?: Yes Plan: see plan above (3) COPD (chronic obstructive pulmonary disease) Is this a current diagnosis for this admission?: Yes Plan: c/w supplemental O2 at this time. c/w inhalers and nebulizers (4) Elevated troponin I level Is this a current diagnosis for this admission?: Yes (5) Systolic HF (heart failure) Qualifiers: Heart failure chronicity: unspecified Qualified Code(s): I50.20 - Unspecified systolic (congestive) heart failure Is this a current diagnosis for this admission?: Yes (6) Chronic renal disease Qualifiers: Chronic kidney disease stage: unspecified stage Qualified Code(s): N18.9 - Chronic kidney disease, unspecified Is this a current diagnosis for this admission?: Yes (7) Constipation Is this a current diagnosis for this admission?: Yes (8) Acute combined systolic and diastolic heart failure Is this a current diagnosis for this admission?: Yes Plan: stable, currently on IV lasix 20mg IV BID. good UOP. continue to monitor I/Os and daily weights. cardiology following
[2018-05-18] MEDS: ATORVASTATIN CALCIUM 80 MG TABLET PO SCH (21:58)
[2018-05-18] MEDS ORDERED: DILTIAZEM HCL INJ 25 MG/5 ML VIAL ONE (23:29)
[2018-05-18] MEDS: DILTIAZEM HCL/D5W 125 MG/125 ML RTUINJ IV PRN (23:47)
[2018-05-19] MEDS: HYDRALAZINE HCL INJ/PF 20 MG/1 ML SDV IV PRN (00:49)
--- NOTE | 2018-05-19 00:55 | PROGRESS NOTE E ---
Progress Note NAME: BETSY VINES : 1945 AGE: 72Y DATE: 05/18/2018 ROOM: 328 SUBJECTIVE: Note that the patient denies any chest pain or discomfort. There is no PND, orthopnea. The patient last night went into atrial fibrillation and had to be placed on a Cardizem drip. Now the patient is in sinus rhythm and his Lopressor has been increased to 100 mg p.o. b.i.d. Hence, his Cardizem drip has been discontinued. He denies any chest pain or discomfort. There are no symptoms of heartburn/GERD symptoms today. The patient's troponin I has trended down further. The patient denies any cough or wheezing or sputum production. There is no chest pain. OBJECTIVE: GENERAL: On examination the patient is well-built and well-nourished, in no acute distress. VITAL SIGNS: He is afebrile with a temperature of 97.7 degrees Fahrenheit, his pulse is 83 beats per minute, blood pressure 155/90, respirations are 16 per minute, O2 saturation are 96% on 1.5 liters nasal cannula. HEENT: Head is atraumatic, normocephalic. Eyes: Pupils are equal, round, regular, reactive to light and accommodation. Extraocular movements are normal. There is no conjunctival pallor. There is no scleral icterus. ENT is negative. NECK: Supple. There is no JVD. Carotids are equal. There is no bruit. There is no lymphadenopathy. There is no goiter. There is no thyromegaly. Trachea is central. LUNGS: Show diminished air entry, prolonged expiration without any rhonchi, rales, or wheezing. There is hyperresonance on percussion. There is no chest wall tenderness. HEART: S1, S2 is heard. S1 is of normal intensity. There is no S3 gallop. There is no S4 gallop. There is a systolic murmur in the left sternal border and the apex. There is no rub. ABDOMEN: Soft, nontender. There is no hepatosplenomegaly. Bowel sounds are well heard. There are no tenderness areas or masses in the abdomen. EXTREMITIES: Femorals are diminished. There is faint left femoral bruit present. Leg pulses are diminished. There is no pedal edema. There is no cyanosis or clubbing. There is no DVT or cellulitis. There is no calf tenderness. CENTRAL NERVOUS SYSTEM: The patient is conscious, awake, alert, oriented x3 with no focal deficit. PSYCHIATRIC: The patient's judgment and insight are intact. His affect is normal. INTAKE/OUTPUT: The patient's 24 hour intake is 1000 mL, output is 790 mL. DIAGNOSTIC STUDIES: The patient's CPK-MB has come down to normal at 3.30. His troponin I has come down to 3.040. His glucose is 160 and 153. ASSESSMENT: 1. ELEVATED TROPONIN I MULTIFACTORIAL, MENTIONED EARLIER, SECONDARY TO VOLUME OVERLOAD DUE TO CHRONIC KIDNEY DISEASE, CARDIOMYOPATHY, AND ATRIAL FIBRILLATION/FLUTTER WITH RAPID VENTRICULAR RESPONSE. 2. NON-ST ELEVATION [place]. THE PATIENT WITH HISTORY OF CORONARY ARTERY DISEASE. 3. CORONARY ARTERY DISEASE, HISTORY OF [place] IN 1998, AT PRESENT NO ANGINAL SYMPTOMS. 4. HYPERTENSION. 5. DIABETES MELLITUS. 6. COPD. 7. TOBACCO ABUSE. 8. GERD. 9. PERIPHERAL VASCULAR DISEASE. 10. CHRONIC BACK PAIN. 11. CHRONIC KIDNEY DISEASE STAGE 3. 12. CARDIOMYOPATHY WITH SEVERELY DEPRESSED LV EJECTION FRACTION. RECOMMENDATIONS: The patient is anxious to go home. The medications have been reviewed. Continue the patient on beta kimmie at Lopressor 100 mg p.o. b.i.d. We will change this to Toprol XL. Continue the on hydralazine and also the patient on aspirin and losartan. In view of the patient's renal function we will stop the patient's metformin. Since the patient's troponin I is trending down and the patient has no anginal symptoms we will schedule the patient for IV Lexiscan Cardiolite stress test in the morning. Plan will be made final after the patient's stress test findings are known. TIME SPENT: Note 40 minutes spent on patient with more than 50% of the time spent in direct patient care. Medical decision-making is of highly complexity. Discussed with the primary care provider, other caregiving providers on the case. Discussed with the patient and the patient's significant other. DICTATING PHYSICIAN: ANDRE JOSHI M.D. [id number] PHY#: [id number] ID: [id number] JOB#: [id number] ACCT: [id number] cc: >
[2018-05-19] MEDS: IPRATROPIUM/ALBUTEROL 0.5-2.5 MG/3 ML AMPUL NEB SCH ×4 (02:24→19:24)
[2018-05-19 02:49] LABS: CREATINE KINASE MB 3.07 ng/mL (<4.55); TROPONIN I 1.95 ng/mL
[2018-05-19] MEDS: HYDRALAZINE HCL 50 MG TABLET PO SCH ×3 (05:34→21:02)
[2018-05-19] MEDS: OXYCODONE-ACETAMINOPHEN 5-325 MG TABLET PO PRN (07:46)
[2018-05-19] MEDS: INSULIN LISPRO 100 UNIT/ML 3 ML VIAL SUBCUT PRN ×2 (07:47→12:46)
[2018-05-19] MEDS: DILTIAZEM HCL/D5W 125 MG/125 ML RTUINJ IV PRN (08:35)
[2018-05-19 08:39] LABS: CREATINE KINASE MB 2.8 ng/mL (<4.55); TROPONIN I 1.85 ng/mL
--- NOTE | 2018-05-19 09:57 | EKG REPORT ---
SEVERITY:- ABNORMAL ECG - ATRIAL FIBRILLATION WITH RAPID V-RATE PROBABLE POSTERIOR INFARCT REPOLARIZATION ABNORMALITY, PROB RATE RELATED : Confirmed by: Stephany Conway 19-May-2018 09:55:44
[2018-05-19] MEDS: LOSARTAN POTASSIUM 50 MG TABLET PO SCH ×2 (10:29→21:03)
[2018-05-19] MEDS: METOPROLOL TARTRATE 100 MG TABLET PO SCH (10:30)
[2018-05-19] MEDS: FUROSEMIDE INJ/PF 20 MG/2 ML SDV IV SCH (10:30)
[2018-05-19] MEDS: TAMSULOSIN HCL 0.4 MG CAP.SR.24H PO SCH (10:30)
[2018-05-19] MEDS: APIXABAN 2.5 MG TABLET PO SCH ×2 (10:30→17:17)
[2018-05-19] MEDS: PANTOPRAZOLE SODIUM 40 MG VIAL IV SCH (10:30)
[2018-05-19] MEDS: TIOTROPIUM BROMIDE DPI 5 CAP/KIT (18 MCG/CAP) IH SCH (10:31)
[2018-05-19] MEDS: BUDESONIDE/FORMOTEROL 160-4.5 MCG 60 PUFF/6 GM MDI IH SCH ×2 (10:31→21:01)
[2018-05-19] MEDS: LACTULOSE SYRUP 20 GM/30 ML UDCUP PO PRN (10:45)
[2018-05-19] MEDS: AMIODARONE HCL 200 MG TABLET PO SCH ×2 (11:04→21:01)
[2018-05-19] MEDS: ONDANSETRON HCL INJ/PF 4 MG/2 ML SDV IV PRN (11:48)
[2018-05-19] MEDS: LEVOTHYROXINE SODIUM 0.112 MG TABLET PO SCH (12:46)
[2018-05-19] MEDS: LEVOTHYROXINE SODIUM 0.025 MG TABLET PO SCH (12:46)
[2018-05-19 13:26] LABS: ANION GAP 18 (5-19); BLOOD UREA NITROGEN 49 mg/dL (7-20); CALCIUM 9.8 mg/dL (8.4-10.2); CARBON DIOXIDE 21 mmol/L (22-30); CHLORIDE 98 mmol/L (98-107); GLUCOSE 168 mg/dL (75-110); POTASSIUM 3.5 mmol/L (3.6-5.0); SODIUM 137.1 mmol/L (137-145)
[2018-05-19 14:18] LABS: CREATINE KINASE MB 3.37 ng/mL (<4.55); TROPONIN I 1.67 ng/mL
--- NOTE | 2018-05-19 17:09 | PDOC PROGRESS REPORT ---
Subjective Progress Note for:: 05/19/18 - Seen on rounds this morning Subjective:: He tells me that he has no acute complaints Reason For Visit: NSTEMI;A FIB RVR Physical Exam Vital Signs: Temp Pulse Resp BP Pulse Ox 97.9 F 67 18 97/49 L 96 05/19/18 14:52 05/19/18 14:52 05/19/18 14:52 05/19/18 14:52 05/19/18 16:28 Intake & Output 05/18/18 05/19/18 05/20/18 06:59 06:59 06:59 Intake Total 1000 791 329 Output Total 790 1475 300 Balance 210 -684 29 Weight 196 lb 10.437 oz 202 lb 6.15 oz General appearance: PRESENT: no acute distress, well-developed, well-nourished Head exam: PRESENT: atraumatic, normocephalic Eye exam: PRESENT: EOMI, PERRLA. ABSENT: scleral icterus Ear exam: PRESENT: normal external ear exam Teeth exam: PRESENT: poor dentation Neck exam: ABSENT: tracheal deviation Respiratory exam: PRESENT: decreased breath sounds - Bilaterally at the bases, symmetrical, wheezes Cardiovascular exam: PRESENT: irregular rhythm, +S1, +S2 Pulses: PRESENT: +2 pedal pulses bilateral Neurological exam: PRESENT: alert, awake, oriented to person, oriented to place , oriented to time, oriented to situation, CN II-XII grossly intact Skin exam: PRESENT: dry, warm Results Laboratory Results: 05/17/18 05:45 05/19/18 07:39 05/19/18 07:39 Sodium 137.1 Potassium 3.5 L Chloride 98 Carbon Dioxide 21 L Anion Gap 18 BUN 49 H Creatinine 1.85 H Est GFR ( Amer) 44 L Est GFR (Non-Af Amer) 36 L Glucose 168 H Calcium 9.8 05/16/18 05/16/18 05/16/18 02:55 08:42 14:46 Creatine Kinase CK-MB (CK-2) 16.00 H 18.00 H 13.10 H Troponin I 12.400 14.100 9.900 05/17/18 05/17/18 05/18/18 05:45 23:26 04:40 Creatine Kinase 230 H CK-MB (CK-2) 5.51 H Troponin I 5.090 3.480 05/18/18 05/18/18 05/19/18 04:40 18:10 01:39 Creatine Kinase 161 CK-MB (CK-2) 3.30 Troponin I 3.040 2.020 05/19/18 05/19/18 05/19/18 01:39 07:39 07:39 Creatine Kinase 126 CK-MB (CK-2) 3.07 2.80 Troponin I 1.950 1.850 05/19/18 05/19/18 13:35 13:35 Creatine Kinase 132 CK-MB (CK-2) 3.37 Troponin I 1.670 Impressions: Chest X-Ray 05/15/18 20:54 IMPRESSION: NO ACUTE RADIOGRAPHIC FINDING IN THE CHEST. Assessment & Plan - Diagnosis (1) Atrial fibrillation with rapid ventricular response Is this a current diagnosis for this admission?: Yes (2) New onset a-fib Is this a current diagnosis for this admission?: Yes (3) COPD (chronic obstructive pulmonary disease) Is this a current diagnosis for this admission?: Yes (4) Elevated troponin I level Is this a current diagnosis for this admission?: Yes (5) Systolic HF (heart failure) Qualifiers: Heart failure chronicity: unspecified Qualified Code(s): I50.20 - Unspecified systolic (congestive) heart failure Is this a current diagnosis for this admission?: Yes (6) Chronic renal disease Qualifiers: Chronic kidney disease stage: unspecified stage Qualified Code(s): N18.9 - Chronic kidney disease, unspecified Is this a current diagnosis for this admission?: Yes (7) Constipation Is this a current diagnosis for this admission?: Yes (8) Acute combined systolic and diastolic heart failure Is this a current diagnosis for this admission?: Yes - Plan Summary Plan Summary: Patient admitted for A. fib with RVR. Cardiology is consulted. Patient's been going in and out of A. fib in the last 3 days. Normally he gets back to sinus rhythm during the daytime and then at nighttime he again goes back into A. fib and Cardizem drip restarted. This has happened the last 2 nights. Cardiology has titrated up his metoprolol dose 100mg twice daily. I spoken with the distillery manager and he feels that patient be started on amiodarone and his dosage of metoprolol will be decreased. I will restart him on Eliquis twice daily. At this time cardiology will change his medications to amiodarone and adjusted metoprolol dose later today. His Cardizem drip will be turned off. As per cardiology he may have stress test done in the morning tomorrow.
--- NOTE | 2018-05-19 20:15 | PROGRESS NOTE E ---
Progress Note NAME: BETSY VINES : 1945 AGE: 72Y DATE: 05/19/2018 ROOM: 328 SUBJECTIVE: The patient, last night, went into atrial fibrillation and had his Cardizem restarted. Hence, since the patient was on a Cardizem drip, his stress test was rescheduled for tomorrow. The patient, at present, is in sinus rhythm. He denies any chest pain or discomfort. There is no shortness of breath. There is no PND or orthopnea. There is no bleeding on Eliquis. There are no TIA or CVA symptoms. OBJECTIVE: GENERAL: On examination, the patient is well built and well nourished, in no acute distress. VITAL SIGNS: He is afebrile with a temperature of 97.5 degrees Fahrenheit, pulse is 80 beats per minute, blood pressure 104/62, respirations 20 per minute, O2 saturations are 99% on 1 L nasal cannula. HEENT: Head is atraumatic, normocephalic. Eyes: Pupils are equal, round, regular, reactive to light and accommodation. Extraocular movements are normal. There is no conjunctival pallor. There is no scleral icterus. ENT is negative. NECK: Supple. There is no JVD. Carotids are equal. There is no bruit. There is no lymphadenopathy. There is no goiter. There is no thyromegaly. Trachea central. LUNGS: Show diminished air entry, prolonged expiration without any rho, rales or wheezing. There is hyperresonance on percussion. There is no chest wall tenderness. HEART: S1 and S2 are heard. S1 is of normal intensity. There is no S3 gallop. There is no S4 gallop. There is a systolic murmur in the left sternal border on the apex. There is no rub. ABDOMEN: Soft, nontender. There is no hepatosplenomegaly. Bowel sounds are well heard. There are no tender areas or masses in the abdomen. EXTREMITIES: Femorals are diminished. There is a faint left femoral bruit present. Leg pulses diminished. There is no pedal edema. There is no cyanosis or clubbing. There is no DVT or cellulitis. There is no calf tenderness. CENTRAL NERVOUS SYSTEM: The patient is conscious, awake, alert, oriented x3 with no focal deficit. PSYCHIATRIC: The patient's judgment and insight are intact. His affect is normal. LABORATORY DATA: The patient's sodium is 137.5, potassium 3.5, chloride is 98, CO2 is 21; the patient's BUN is 49, creatinine is 1.85, GFR is reduced to 36 mL; his glucose is 168. His troponin I has come down to 1.850 and subsequently, 1.670. His calcium is 9.8. His CPK-MB this morning was negative. A CPK was negative. IMPRESSION: 1. ELEVATED TROPONIN I, MULTIFACTORIAL, MENTIONED EARLIER, SECONDARY TO VOLUME OVERLOAD DUE TO CHRONIC KIDNEY DISEASE, CARDIOMYOPATHY, AND ATRIAL FIBRILLATION/RAPID VENTRICULAR RESPONSE. 2. NON-ST ELEVATION [place] IN A PATIENT WITH A HISTORY OF CORONARY ARTERY DISEASE. 3. CORONARY ARTERY DISEASE, HISTORY OF [place] IN 1998. 4. PAROXYSMAL ATRIAL FIBRILLATION. Patient back in sinus rhythm, on Cardizem drip. We will stop the patient's Cardizem drip and start the patient on amiodarone. 5. HYPERTENSION. 6. DIABETES MELLITUS. 7. COPD. 8. HYPOTHYROIDISM. The patient's thyroid medication will be restarted. 9. PERIPHERAL VASCULAR DISEASE. 10. GERD. 11. CHRONIC BACK PAIN. 12. CHRONIC KIDNEY DISEASE, STAGE 3. Note, the patient's kidney functions are further deteriorating. Hence, we will stop the patient's IV Lasix and start the patient on p.o. Lasix. 13. CARDIOMYOPATHY WITH SEVERELY DEPRESSED LV EJECTION FRACTION. 14. HYPERLIPIDEMIA. RECOMMENDATIONS: 1. We will stop the patient's Cardizem drip and start the patient on amiodarone. 2. We will stop the patient's *------* and change it to Toprol XL 50 mg p.o. q. 12 hours. 3. We will continue the patient's EHSAN inhibitor and hydralazine. 4. We will continue the patient's aspirin and Eliquis. 5. We will reschedule the patient for a stress test tomorrow. The patient and the family want me to do his stress test and hence, we will come back tomorrow even though I am not refrigeration engineer to do the stress test. 6. Note: Medications have been reviewed. Medical decision making is of high complexity. TIME SPENT: Forty-five minutes spent on the patient with more than 50% of the time spent on direct patient care. We will follow with you. DICTATING PHYSICIAN: ANDRE JOSHI M.D. [id number] PHY#: [id number] ID: [id number] JOB#: [id number] ACCT: [id number] cc: >
[2018-05-19] MEDS: METOPROLOL SUCCINATE 50 MG TAB.SR.24H PO SCH (21:01)
[2018-05-19] MEDS: ATORVASTATIN CALCIUM 80 MG TABLET PO SCH (21:01)
[2018-05-19] MEDS: MAG HYDROX/AL HYDROX/SIMETH SUSP 30 ML UDCUP PO PRN (21:01)
[2018-05-20] MEDS: IPRATROPIUM/ALBUTEROL 0.5-2.5 MG/3 ML AMPUL NEB SCH ×4 (01:09→20:06)
[2018-05-20] MEDS: HYDRALAZINE HCL 50 MG TABLET PO SCH ×3 (06:28→22:21)
[2018-05-20] MEDS: LEVOTHYROXINE SODIUM 0.112 MG TABLET PO SCH (06:28)
--- NOTE | 2018-05-20 10:39 | PROGRESS NOTE E ---
Progress Note NAME: BETSY VINES : 1945 AGE: 72Y DATE: 05/17/2018 ROOM: 328 SUBJECTIVE: Note that the patient last night went into atrial fibrillation with rapid ventricular response and had Cardizem restarted. This morning he is off the Cardizem and remains in sinus rhythm. He has paroxysmal atrial fibrillation and goes back into sinus rhythm. The patient states he has intermittent heart burn secondary to GERD but no current anginal symptoms. Surprisingly, there is no cough, wheezing or shortness of breath at rest. There is no ventricular arrhythmia seen. There is no anginal symptoms. There is no PND, orthopnea, or leg edema. There is no dizziness, syncope or near syncope. His blood pressure is difficult to control. OBJECTIVE: VITAL SIGNS: On examination, he is afebrile with a temperature of 98.3 degrees Fahrenheit orally, pulse is 78 beats per minute, blood pressure 151/87, respirations are 20 per minute, O2 sats are 95% on room air. GENERAL: The patient is well-built and well-nourished. At present in no acute distress. He is sitting up in a chair. HEENT: Head is atraumatic, normocephalic. Eyes: Pupils are equal, round, regular, reactive to light and accommodation. Extraocular movements are normal. There is no conjunctival pallor. There is no scleral icterus. ENT is negative. NECK: Supple. There is no JVD. Carotids are equal. There is no bruit. There is no lymphadenopathy. There is no goiter. Trachea central. LUNGS: Show diminished air entry, prolonged expiration without any rhonchi or wheezing. There are a few bibasilar rales present. HEART: S1 and S2 are heard. At present the patient in sinus rhythm. S1 is of normal intensity. There is no S3 gallop. There is no S4 gallop. There is a systolic murmur in the left sternal border on the apex. There is no rub. ABDOMEN: Soft, nontender. There is no hepatosplenomegaly. Bowel sounds are well heard. EXTREMITIES: Femorals are diminished. There is faint left femoral bruit present. Leg pulses difficult to palpate. There is no pedal edema. There is no cyanosis or clubbing. There is no DVT or cellulitis. There is no calf tenderness. CENTRAL NERVOUS SYSTEM: The patient is conscious, awake, alert, oriented x3 with no focal deficit. PSYCHIATRIC: The patient's judgment and insight are intact. His affect is normal. IMAGING STUDIES: His EKG shows atrial flutter AFib with intermittent sinus rhythm. INTAKE AND OUTPUT: His 24-hour intake is 925 mL, output is 2890 mL. LABORATORY DATA: The patient's troponin I has come down to 5.51. His CPK-MB has come down to 5.51. His troponin I has come down to 5.090. His glucose is 160. ASSESSMENT: 1. ELEVATED TROPONIN I MULTIFACTORIAL SECONDARY TO NON-ST ELEVATION HI, AND ALSO THE EFFECT OF ATRIAL FIBRILLATION/FLUTTER WITH RAPID VENTRICULAR RESPONSE IN A PATIENT WITH SEVERELY REDUCED LV EJECTION FRACTION/CARDIOMYOPATHY WITH CHRONIC KIDNEY DISEASE. 2. NON-ST ELEVATION HI. THE PATIENT HAS A HISTORY OF CORONARY ARTERY DISEASE, HISTORY OF OLD HI. HISTORY OF CHEST PAINS OFF AND ON. 3. PAROXYSMAL ATRIAL FIBRILLATION/FLUTTER. NOTE THAT THE PATIENT HAS BEEN ON RATE ADJUSTED DOSES FOR HIS RENAL FAILURE WITH LOVENOX. Will stop that and start the patient on Eliquis 2.5 mg p.o. t.i.d. and stop the patient's Lovenox. 4. CONGESTIVE HEART FAILURE. Continue the patient on beta kimmie. Continue the patient on EHSAN inhibitor without hydralazine in view of the patient's blood pressure being not well controlled and continue the patient on Lasix. Patient will need dialysis. 5. CHRONIC OBSTRUCTIVE PULMONARY DISEASE. AT PRESENT WITH NO ACUTE EXACERBATION. 6. CORONARY ARTERY DISEASE, HISTORY OF HI. 7. HYPERTENSION. As mentioned, medication adjustment have been . 8. CARDIOMYOPATHY. I have discussed with patient that later he would have a stress test to see if there is worsening in view of the patient's renal status. Also, if the stress test is negative and the patient does not need a catheterization then would repeat the patient's echo in 3 months to see if the LV ejection fraction is still 35% or below in which case he would merit a consult for AICD placement. 9. DIABETES MELLITIS TYPE 2, NON-INSULIN DEPENDENT. Continue antidiabetic medication. 10. GASTROESOPHAGEAL REFLUX DISEASE. 11. CHRONIC KIDNEY DISEASE STAGE III. 12. HISTORY OF TOBACCO ABUSE. 13. ARTHRITIS. 14. DEPRESSION. 15. CHRONIC BACK PAIN. 16. PERIPHERAL ARTERIAL DISEASE. HISTORY OF STENT PLACEMENT IN THE LEFT FEMORAL ARTERY PER HIS . Note: Medications have been reviewed. Case discussed with the attending physician on the case and with other caregiver providers on the case. The patient would benefit from nephrologic consult but the patient states that he stopped going to a skidder lever operator since he had question about dietary compliance and the patient was against it. Note, 50 minutes spent on patient with more than 50% of the time spent in direct patient care. Medical decision-making is very highly complex. In view of the patient's multiple comorbidities. Will follow with you. DICTATING PHYSICIAN: ANDRE JOSHI M.D. [id number] [place]#: [id number] ID: [id number] JOB#: [id number] ACCT: [id number] cc: >
[2018-05-20] MEDS: METOPROLOL SUCCINATE 50 MG TAB.SR.24H PO SCH ×2 (11:34→22:18)
[2018-05-20] MEDS: OXYCODONE-ACETAMINOPHEN 5-325 MG TABLET PO PRN (11:34)
[2018-05-20] MEDS: TAMSULOSIN HCL 0.4 MG CAP.SR.24H PO SCH (11:34)
[2018-05-20] MEDS: AMIODARONE HCL 200 MG TABLET PO SCH ×2 (11:34→22:18)
[2018-05-20] MEDS: FUROSEMIDE 40 MG TABLET PO SCH (11:34)
[2018-05-20] MEDS: LEVOTHYROXINE SODIUM 0.025 MG TABLET PO SCH (11:34)
[2018-05-20] MEDS: BUDESONIDE/FORMOTEROL 160-4.5 MCG 60 PUFF/6 GM MDI IH SCH ×2 (11:36→22:18)
[2018-05-20] MEDS: TIOTROPIUM BROMIDE DPI 5 CAP/KIT (18 MCG/CAP) IH SCH (11:37)
[2018-05-20] MEDS: APIXABAN 2.5 MG TABLET PO SCH ×2 (11:38→18:53)
[2018-05-20] MEDS ORDERED: CAFFEINE CITRATED INJ/PF 60 MG/3 ML SDV ONE (11:52)
[2018-05-20] MEDS ORDERED: REGADENOSON INJ 0.4 MG/5 ML DISP.SYRIN IV ONE (11:52)
[2018-05-20] MEDS ORDERED: BUTALB/ACETAMINOPHEN/CAFFEINE 1 TAB EACH PO ONE (12:30)
[2018-05-20] MEDS ORDERED: CLOPIDOGREL BISULFATE 300 MG TABLET PO ONE (12:30)
--- NOTE | 2018-05-20 12:35 | DRAGON STRESS TEST REPORT ---
INTRAVENOUS LEXISCAN CARDIOLITE STRESS TEST USING SINGLE PHOTON EMMISION COMPUTERIZED TOMOGRAPHIC. DATE OF PROCEDURE: May 20, 2018, INDICATION : Positive troponin I, known CAD CARDIAC RISK FACTORS: Diabetes, hypertension, dyslipidemia, tobacco abuse. RESTING EKG: Atrial fibrillation, minor nonspecific ST-T wave changes STRESS EKG: No significant ST segment changes noted with LexiScan bolus REASON FOR TERMINATION: Protocol. PROCEDURE REPORT: Baseline heart rate 88 beats per minute with blood pressure of 115/68. Patient had no significant complaints. Patient was bolused with Lexiscan 0.4 mg intravenously followed by saline bolus. Heart rate at 2 minutes post bolus 122 with a blood pressure of 83/72. 3 minutes post bolus heart rate 121 with blood pressure of 86/65. On discharge from stress lab, heart rate of 116, blood pressure of 100/67. No significant EKG changes were noted. Patient had no significant complaints during the procedure or postprocedure. Patient received 40 mg of IV caffeine. CONCLUSIONS: Normal EKG and hemodynamic response to IV LexiScan. NUCLEAR DATA: At rest the patient was given 14.82 millicuries of technetium 99 sestamibi injected intravenously. As per protocol rest gated SPECT images were obtained. On day of stress test, the patient was given intravenous LexiScan at a dose of 0.4 mg in 5 mL intravenously, followed by flush with normal saline. Subsequently the stress dose of 44.3 millicuries of technetium 99 sestamibi was injected intravenously. As per protocol stress gated images were obtained. NUCLEAR INTERPRETATION: Both raw and processed data were used for interpretation. Visual, qualitative, computer-generated quantitative data was used. There was good myocardial uptake of technetium compound. Motion artifact and soft tissue attenuations were noted. Increased visceral uptake was noted. No definitive areas of transient perfusion defect noted, small area of fixed defect noted involving the distal inferior wall and inferior septum. EKG gated imaging showed LV EF at 28 %, rest and stress gated EF similar visually, with diffuse hypokinesia. LVH noted. T. I D. ratio was 0.99. Lung heart ratio noted to be within normal limits 0.40. No significant extracardiac and abnormal radiotracer activities were noted. RV free wall uptake was noted to be WNL. IMPRESSION: Also refer to comments under nuclear interpretation. Also test results needs to be interpreted in the context of pretest probability. 1. No definitive areas of transient perfusion defect noted. 2. Small area of fixed defect noted involving the distal inferior wall and inferior septum suggestive of mild scar. 3. EKG gated imaging shows left ventricular ejection fraction of approx. 28 %. LVH noted. 4. Clinical correlation requested as occasionally single vessel disease or balanced ischemia could be missed. In approximately 10% of the cases Lexiscan may not cause adequate vasodilatory stress. RECOMMENDATIONS: Aggressive risk factor modification and medical management. Further evaluation may be needed if continued symptoms or other high risk indicators are noted on clinical evaluation. Close cardiology follow-up is also recommended. Clinical correlation with echocardiogram derived ejection fraction. Inability to exercise by itself can lead to increased cardiovascular event risks. Consider cardiology consultation and or follow-up if clinically indicated. I am available for cardiology evaluation and consultation if requested by the nutrition counselor, unless patient already has a wildlife technician. Dr. Richard Conway. MRCP Board certified in cardiology and sleep medicine. Board certified in nuclear cardiology, adult echocardiography. IVAN
[2018-05-20] MEDS: LACTULOSE SYRUP 20 GM/30 ML UDCUP PO PRN (14:01)
[2018-05-20] MEDS: LOSARTAN POTASSIUM 50 MG TABLET PO SCH (14:01)
--- NOTE | 2018-05-20 17:09 | PDOC PROGRESS REPORT ---
Subjective Progress Note for:: 05/20/18 Subjective:: The patient is a 72-year-old male with a past medical history significant for coronary artery disease. He had an ME in 1998. He has hypertension, COPD and diabetes mellitus. Unfortunately he continues to smoke. He presented to the emergency room with chest pain and heart palpitations. He was found to have atrial fibrillation with rapid ventricular response. Ultimately the patient has been found to have an NSTEMI. He has had issues going in and out of atrial fibrillation with a rapid rate. He has been initiated on amiodarone with some improvement. He has a severely diminished ejection fraction of 25-30% found on echocardiogram. His medications have been titrated as medical management was the recommendation. He had a stress test today which revealed no evidence of reversible ischemia but did confirm his diminished ejection fraction. I spoke to cardiology today who recommends a LifeVest at discharge. This will be ordered today and hopefully the patient can be discharged tomorrow. Today he denies fever chills. He has had no further episodes of chest pain. No heart palpitations that he is aware of. No nausea vomiting or diarrhea. No urinary complaints. Reason For Visit: NSTEMI;A FIB RVR Physical Exam Vital Signs: Temp Pulse Resp BP Pulse Ox 97.3 F 118 H 18 137/73 H 96 05/20/18 10:55 05/20/18 14:00 05/20/18 13:44 05/20/18 10:55 05/20/18 16:01 Intake & Output 05/19/18 05/20/18 05/21/18 06:59 06:59 06:59 Intake Total 791 629 425 Output Total 1475 1150 300 Balance -684 -521 125 Weight 91.8 kg 92.2 kg General appearance: PRESENT: no acute distress, well-developed, well-nourished Head exam: PRESENT: atraumatic, normocephalic Eye exam: PRESENT: conjunctiva pink, EOMI, PERRLA. ABSENT: scleral icterus Mouth exam: PRESENT: moist, tongue midline Respiratory exam: PRESENT: decreased breath sounds, wheezes - He has some very mild end expiratory wheezing noted throughout all lung myers. ABSENT: rales, rhonchi Cardiovascular exam: PRESENT: RRR. ABSENT: diastolic murmur, rubs, systolic murmur GI/Abdominal exam: PRESENT: normal bowel sounds, soft. ABSENT: distended, guarding, mass, organolmegaly, rebound, tenderness Rectal exam: PRESENT: deferred Extremities exam: PRESENT: full ROM. ABSENT: calf tenderness, clubbing, pedal edema Musculoskeletal exam: PRESENT: ambulatory Neurological exam: PRESENT: alert, awake, oriented to person, oriented to place , oriented to time, oriented to situation, CN II-XII grossly intact. ABSENT: motor sensory deficit Psychiatric exam: PRESENT: appropriate affect, normal mood. ABSENT: homicidal ideation, suicidal ideation Skin exam: PRESENT: dry, intact, warm. ABSENT: cyanosis, rash Results Laboratory Results: 05/17/18 05:45 05/19/18 07:39 05/16/18 05/16/18 05/16/18 02:55 08:42 14:46 Creatine Kinase CK-MB (CK-2) 16.00 H 18.00 H 13.10 H Troponin I 12.400 14.100 9.900 05/17/18 05/17/18 05/18/18 05:45 23:26 04:40 Creatine Kinase 230 H CK-MB (CK-2) 5.51 H Troponin I 5.090 3.480 05/18/18 05/18/18 05/19/18 04:40 18:10 01:39 Creatine Kinase 161 CK-MB (CK-2) 3.30 Troponin I 3.040 2.020 05/19/18 05/19/18 05/19/18 01:39 07:39 07:39 Creatine Kinase 126 CK-MB (CK-2) 3.07 2.80 Troponin I 1.950 1.850 05/19/18 05/19/18 05/20/18 13:35 13:35 06:35 Creatine Kinase 132 CK-MB (CK-2) 3.37 Troponin I 1.670 1.300 Impressions: Chest X-Ray 05/15/18 20:54 IMPRESSION: NO ACUTE RADIOGRAPHIC FINDING IN THE CHEST. Assessment & Plan - Diagnosis (1) NSTEMI (non-ST elevated myocardial infarction) Is this a current diagnosis for this admission?: Yes Plan: Medical management per cardiology. Continue Plavix, high-dose atorvastatin, metoprolol and entresto (2) Atrial fibrillation with rapid ventricular response Is this a current diagnosis for this admission?: Yes Plan: Currently on amiodarone. He has been started on Eliquis for anticoagulation (3) Acute on chronic combined systolic and diastolic CHF (congestive heart failure) Is this a current diagnosis for this admission?: Yes Plan: He has been diuresed with IV Lasix. Currently stable on 40 mg of p.o. Lasix daily. He has a diminished ejection fraction of 25-30%. He is awaiting a LifeVest and hopefully can be discharged home when this arrives. I spoke to Dr. Conway from the cardiology service today he does not want him to leave until his LifeVest is here. (4) Coronary artery disease Is this a current diagnosis for this admission?: Yes Plan: Continue medical management. (5) Chronic kidney disease, stage III (moderate) Is this a current diagnosis for this admission?: Yes Plan: He has not had labs in several days. We will order a chemistry panel for in the morning. (6) Diabetes mellitus Is this a current diagnosis for this admission?: Yes Plan: Stable on current regimen (7) Hypertension Is this a current diagnosis for this admission?: Yes Plan: His medications have been titrated. Continue to follow quite closely and make adjustments as necessary (8) Peripheral vascular disease Is this a current diagnosis for this admission?: Yes Plan: Continue Plavix and atorvastatin (9) Chronic pain Is this a current diagnosis for this admission?: Yes Plan: His pain seems to be adequately controlled on current regimen (10) Opiate dependence Is this a current diagnosis for this admission?: Yes Plan: Continue home dose of narcotics. (11) Hyperlipidemia Is this a current diagnosis for this admission?: Yes Plan: Continue atorvastatin (12) Constipation Is this a current diagnosis for this admission?: Yes Plan: Improving (13) COPD (chronic obstructive pulmonary disease) Is this a current diagnosis for this admission?: Yes Plan: Stable (14) Hypokalemia Is this a current diagnosis for this admission?: Yes Plan: Repleted. He will have a chemistry panel checked in the morning. (15) Full code status Is this a current diagnosis for this admission?: Yes - Time Time Spent with patient: 25-34 minutes - Inpatient Certification Medical Necessity: Other - Inpatient hospitalization remains necessary. The patient is awaiting a LifeVest to get to the hospital. When this is arrived if he remains stable he can be discharged home. Hopefully tomorrow.
[2018-05-20] MEDS: SACUBITRIL/VALSARTAN 24 MG/26 MG TABLET PO SCH (18:53)
--- NOTE | 2018-05-20 19:49 | PDOC PROGRESS REPORT ---
Subjective Progress Note for:: 05/20/18 Subjective:: Patient seems to be doing better with gradual improvement. Pt is denying any chest arm or neck discomfort. Patient denying any PND, orthopnea. Patient denied any sustained palpitations, dizziness, syncope, near syncope. Patient denying any fever chills. Patient denying any other significant discomfort. Patient underwent nuclear stress test without any complications Review of systems: Rest review of systems negative. Medications: Medications have been reviewed. Reason For Visit: NSTEMI;A FIB RVR Physical Exam Vital Signs: Temp Pulse Resp BP Pulse Ox 97.7 F 94 18 116/71 96 05/20/18 15:05 05/20/18 19:00 05/20/18 15:05 05/20/18 15:05 05/20/18 16:01 Intake & Output 05/19/18 05/20/18 05/21/18 06:59 06:59 06:59 Intake Total 791 629 725 Output Total 1475 1150 300 Balance -684 -521 425 Weight 91.8 kg 92.2 kg Results Laboratory Results: 05/17/18 05:45 05/19/18 07:39 05/16/18 05/16/18 05/16/18 02:55 08:42 14:46 Creatine Kinase CK-MB (CK-2) 16.00 H 18.00 H 13.10 H Troponin I 12.400 14.100 9.900 05/17/18 05/17/18 05/18/18 05:45 23:26 04:40 Creatine Kinase 230 H CK-MB (CK-2) 5.51 H Troponin I 5.090 3.480 05/18/18 05/18/18 05/19/18 04:40 18:10 01:39 Creatine Kinase 161 CK-MB (CK-2) 3.30 Troponin I 3.040 2.020 05/19/18 05/19/18 05/19/18 01:39 07:39 07:39 Creatine Kinase 126 CK-MB (CK-2) 3.07 2.80 Troponin I 1.950 1.850 05/19/18 05/19/18 05/20/18 13:35 13:35 06:35 Creatine Kinase 132 CK-MB (CK-2) 3.37 Troponin I 1.670 1.300 Impressions: Chest X-Ray 05/15/18 20:54 IMPRESSION: NO ACUTE RADIOGRAPHIC FINDING IN THE CHEST. Assessment & Plan - Diagnosis (1) Acute combined systolic and diastolic heart failure Is this a current diagnosis for this admission?: Yes (2) Atrial fibrillation with rapid ventricular response Is this a current diagnosis for this admission?: Yes (3) COPD (chronic obstructive pulmonary disease) Qualifiers: Emphysema type: unspecified Is this a current diagnosis for this admission?: Yes (4) Chronic kidney disease, stage III (moderate) Is this a current diagnosis for this admission?: Yes (5) Coronary artery disease Qualifiers: Coronary Disease-Associated Artery/Lesion type: [place] artery [place] vs. transplanted heart: [place] heart Associated angina: angina presence unspecified Qualified Code(s): I25.10 - Atherosclerotic heart disease of [place] coronary artery without angina pectoris Is this a current diagnosis for this admission?: Yes (6) Elevated troponin I level Is this a current diagnosis for this admission?: Yes (7) Hyperlipidemia Is this a current diagnosis for this admission?: Yes (8) Hypertension Qualifiers: Hypertension type: essential hypertension Qualified Code(s): I10 - Essential (primary) hypertension Is this a current diagnosis for this admission?: Yes (9) NSTEMI (non-ST elevated myocardial infarction) Is this a current diagnosis for this admission?: Yes (10) Tobacco use disorder Is this a current diagnosis for this admission?: Yes - Notes Notes: Nuclear stress test was negative for ischemia. It did show a mild fixed defect in the distal inferior wall and inferior septum. Patient has significant comorbid diagnosis therefore would not be optimal candidate for heart catheterization. Patient prefers medical management at this point. Have optimized medical management. Start patient on Ranexa, entresto therapy, patient was counseled about LifeVest. This will be arranged. Hospitalist already aware of this. Congestive heart failure: Clinically improved. Continue current regimen and gradually optimize therapy. Patient started on entresto therapy. May not be able to tolerate carvedilol because of COPD. Atrial fibrillation with RVR: Patient would be a candidate for chronic anticoagulation. Discussed stroke prevention and stroke risk with the patient. COPD: Have advised patient on smoking cessation. Continue other bronchodilator and steroid therapy as needed. Chronic kidney disease: Discussed avoiding nonsteroidal and iodinated contrast agent. Patient would benefit from following up with ec teacher. Elevated troponin I: Based on the level it is quite likely that patient had sustained a non-STEMI but has done well with medical management. Will have low threshold for heart catheterization and this was explained. Hyperlipidemia: Recommend high potency statin therapy. Non-STEMI: Nuclear stress test did not show high risk features but in view of low EF, discussed that low threshold for heart catheterization. Patient does not want to pursue this option at this point. Tobacco abuse disorder: Patient was encouraged to quit smoking but he is reluctant to do so. - Time Time with patient: Greater than 35 minutes - CODE STATUS was discussed, patient remains full code. Surrogate decision-maker patient's . Multiple medical problems were addressed. More than 50% of the time spent coordinating care, discussing management plans with involved caregivers. Management plans discussed with involved personnels. Medical decision making was of moderate to high complexity, patient's has multiple comorbidities. Medications reviewed and adjusted accordingly: Yes
[2018-05-20] MEDS: ATORVASTATIN CALCIUM 80 MG TABLET PO SCH (22:18)
[2018-05-21] MEDS: IPRATROPIUM/ALBUTEROL 0.5-2.5 MG/3 ML AMPUL NEB SCH ×2 (02:36→08:06)
[2018-05-21] MEDS: HYDRALAZINE HCL 50 MG TABLET PO SCH (05:09)
[2018-05-21] MEDS: LEVOTHYROXINE SODIUM 0.112 MG TABLET PO SCH (05:09)
[2018-05-21 06:43] LABS: ABSOLUTE EOSINOPHILS # (AUTO) 0.1 10^3/uL (0.0-0.6); ABSOLUTE LYMPHOCYTES (AUTO) 1.7 10^3/uL (0.5-4.7); ABSOLUTE MONOCYTES (AUTO) 1.3 10^3/uL (0.1-1.4); ABSOLUTE NEUT (AUTO) 9.2 10^3/uL (1.7-8.2); BASOPHILS % (AUTO) 0.3 % (0-2); EOSINOPHILS % (AUTO) 1.2 % (0-6); HEMATOCRIT 46.3 % (37.9-51.0); HEMOGLOBIN 15.6 g/dL (13.5-17.0); LYMPHOCYTES % (AUTO) 13.5 % (13-45); MEAN CORPUSCULAR HEMOGLOBIN 28.9 pg (27.0-33.4); MEAN CORPUSCULAR HGB CONC 33.6 g/dL (32.0-36.0); MEAN CORPUSCULAR VOLUME 86 fl (80-97); MONOCYTES % (AUTO) 10.8 % (3-13); PLATELET COUNT 226 10^3/uL (150-450); RED BLOOD COUNT 5.39 10^6/uL (4.35-5.55); RED CELL DISTRIBUTION WIDTH 15.8 % (11.5-14.0); SEGMENTED NEUTROPHILS % (AUTO) 74.2 % (42-78); TOTAL CELLS COUNTED % (AUTO) 100 %; WHITE BLOOD COUNT 12.4 10^3/uL (4.0-10.5)
[2018-05-21 07:02] LABS: ANION GAP 14 (5-19); BLOOD UREA NITROGEN 75 mg/dL (7-20); CARBON DIOXIDE 23 mmol/L (22-30); CHLORIDE 101 mmol/L (98-107); GLUCOSE 171 mg/dL (75-110); POTASSIUM 3.1 mmol/L (3.6-5.0); SODIUM 138.1 mmol/L (137-145)
[2018-05-21] MEDS: LEVOTHYROXINE SODIUM 0.025 MG TABLET PO SCH (07:58)
[2018-05-21] MEDS ORDERED: CLOPIDOGREL BISULFATE 300 MG TABLET PO SCH (10:00)
[2018-05-21] MEDS ORDERED: CLOPIDOGREL BISULFATE 75 MG TABLET PO SCH (10:00)
--- NOTE | 2018-05-21 10:03 | PDOC DISCHARGE SUMMARY ---
General - Admit/Disc Date/PCP Admission Date/Primary Care Provider: 05/15/18 22:36 Yash DIXON MD Discharge Date: 05/21/18 - Discharge Diagnosis (1) Acute combined systolic and diastolic heart failure Is this a current diagnosis for this admission?: Yes (2) Atrial fibrillation with rapid ventricular response Is this a current diagnosis for this admission?: Yes (3) COPD (chronic obstructive pulmonary disease) Is this a current diagnosis for this admission?: Yes (4) Chronic pain Is this a current diagnosis for this admission?: Yes (5) Chronic renal disease Is this a current diagnosis for this admission?: Yes (6) Diabetes mellitus Is this a current diagnosis for this admission?: Yes (7) Hyperlipidemia Is this a current diagnosis for this admission?: Yes (8) Hypokalemia Is this a current diagnosis for this admission?: Yes (9) NSTEMI (non-ST elevated myocardial infarction) Is this a current diagnosis for this admission?: Yes (10) Tobacco use disorder Is this a current diagnosis for this admission?: Yes - Additional Information Resuscitation Status: Full Code Discharge Diet: Cardiac Discharge Activity: Activity As Tolerated Prescriptions: Atorvastatin Calcium [Lipitor 80 mg Tablet] 80 mg PO QHS 30 Days tablet Amiodarone HCl [Cordarone 200 mg Tablet] 400 mg PO Q12 #120 tablet Apixaban [Eliquis 2.5 mg Tablet] 2.5 mg PO BID #60 tablet Clopidogrel Bisulfate [Plavix 75 mg Tablet] 75 mg PO DAILY #30 tablet Furosemide [Lasix 40 mg Tablet] 40 mg PO DAILY #30 tablet Hydralazine HCl [Apresoline 50 mg Tablet] 50 mg PO Q8 90 Days tablet Metoprolol Succinate [Toprol Xl 50 mg Tab.sr] 50 mg PO Q12 #60 tab.sr.24h Sacubitril/Valsartan [Entresto 24 mg/26 mg Tablet] 1 tab PO BID #60 tablet Home Medications: Albuterol Sulfate [Proair HFA Inhalation Aerosol 8.5 gm MDI] 2 puff IH Q4HP PRN 05/16/18 Budesonide/Formoterol Fumarate [Symbicort 160-4.5 Mcg Inhaler] 2 puff IH Q12 12/02 Clonazepam [Klonopin] 0.5 mg PO Q12 05/16/18 Ipratropium/Albuterol Sulfate [Duoneb 3 ml Ampul] 1 vial NEB QID 05/16/18 Lactulose [Constulose 10 gm/15 mL Oral Solution] 30 ml PO BID 05/16/18 Levothyroxine Sodium [Synthroid] 137 mcg PO Q6AM 05/16/18 Linaclotide [Linzess] 290 mcg PO DAILY 05/16/18 Metformin HCl [Glucophage 500 mg Tablet] 500 mg PO BID 05/16/18 Oxycodone HCl/Acetaminophen [Percocet 5-325 mg Tablet] 1 tab PO BIDP PRN Potassium Chloride [Klor-Con 10 Meq Capsule ER] 10 meq PO DAILY 05/16/18 Tamsulosin HCl [Flomax 0.4 mg Cap.sr] 0.4 mg PO DAILY 05/16/18 Tiotropium [place] [Spiriva Handihaler 18 mcg/dose (30 Dose)] 1 cap IH DAILY 12/02 Amiodarone HCl [Cordarone 200 mg Tablet] 400 mg PO Q12 #120 tablet 05/21/18 Apixaban [Eliquis 2.5 mg Tablet] 2.5 mg PO BID #60 tablet 05/21/18 Atorvastatin Calcium [Lipitor 80 mg Tablet] 80 mg PO QHS 30 Days tablet Clopidogrel Bisulfate [Plavix 75 mg Tablet] 75 mg PO DAILY #30 tablet 05/21/18 Furosemide [Lasix 40 mg Tablet] 40 mg PO DAILY #30 tablet 05/21/18 Hydralazine HCl [Apresoline 50 mg Tablet] 50 mg PO Q8 90 Days tablet 05/21/18 Metoprolol Succinate [Toprol Xl 50 mg Tab.sr] 50 mg PO Q12 #60 tab.sr.24h Sacubitril/Valsartan [Entresto 24 mg/26 mg Tablet] 1 tab PO BID #60 tablet 05/21 History of Present Illness History of Present Illness: BETSY VINES is a 72 year old male Iwith past medical history of CAD and PA in 1998, hypertension, COPD who is currently active smoker, diabetes presents to the emergency room with complaint of chest pain with palpitation and shortness of breath. Patient's chest pain started today evening at rest associated with shortness of breath. Patient denied diaphoresis or dizziness. Patient denies fever or chills or cough. Patient reported chest pain and retrosternal area which was 6 out of 10. EMS arrived patient was found to be in A. fib with RVR with heart rate of 180. Patient does not have a history of atrial fibrillation. On arrival to emergency room he was afebrile with initial heart rate of 164. Blood pressure was elevated. EKG showed atrial fibrillation with RVR and ST T changes in lateral leads. Patient was given nitroglycerin and was started on Cardizem drip after bolus. Patient is currently chest pain-free. His chest x- ray showed no acute process. Troponin came back elevated at 0.22. BNP is normal. Creatinine is 1.6; which is around his baseline. [employer] was consulted from the emergency room. Recommended heparin Lovenox full dose along with aspirin. Patient was referred to hospital service. Patient is currently in sinus rhythm with controlled rate. Hospital Course Hospital Course: Nuclear stress test done was negative for ischemia although it did show mild fixed defect in the distal inferior wall and inferior septum. He is not to be a candidate for heart catheterization and patient prefers medical management at this point. He has been started on Ranexa as well as interested in daily life vest was placed on patient prior to discharge. The plan is for him to follow- up with Dr. Conway as outpatient next Echocardiogram revealed an ejection fraction of 25% Patient has since been hemodynamically stable in hospital. He has been advised on the need to quit smoking. He was educated on anticoagulant use and possible adverse effect. Nuclear stress test done was negative for ischemia although it did show mild fixed defect in the distal inferior wall and inferior septum. He is not to be a candidate for heart catheterization and patient prefers medical management at this point. He has been started on Ranexa as well as interested in daily life vest was placed on patient prior to discharge. The plan is for him to follow- up with Dr. Conway as outpatient next Physical Exam Vital Signs: Temp Pulse Resp BP Pulse Ox 97.9 F 78 18 107/92 H 95 05/21/18 08:24 05/21/18 08:24 05/21/18 08:24 05/21/18 08:24 05/21/18 08:24 Intake & Output 05/20/18 05/21/18 05/22/18 06:59 06:59 06:59 Intake Total 629 725 Output Total 1150 300 Balance -521 425 Weight 92.2 kg 92.97 kg General appearance: PRESENT: no acute distress, well-developed, well-nourished Head exam: PRESENT: atraumatic, normocephalic Eye exam: PRESENT: conjunctiva pink, EOMI, PERRLA. ABSENT: scleral icterus Ear exam: PRESENT: normal external ear exam Mouth exam: PRESENT: moist, tongue midline Neck exam: ABSENT: carotid bruit, JVD, lymphadenopathy, thyromegaly Respiratory exam: PRESENT: clear to auscultation zay. ABSENT: rales, rhonchi, wheezes Cardiovascular exam: PRESENT: RRR, other - Life vest. ABSENT: diastolic murmur , rubs, systolic murmur Pulses: PRESENT: normal dorsalis pedis pul Vascular exam: PRESENT: normal capillary refill GI/Abdominal exam: PRESENT: normal bowel sounds, soft. ABSENT: distended, guarding, mass, organolmegaly, rebound, tenderness Rectal exam: PRESENT: deferred Extremities exam: PRESENT: full ROM. ABSENT: calf tenderness, clubbing, pedal edema Neurological exam: PRESENT: alert, awake, oriented to person, oriented to place , oriented to time, oriented to situation, CN II-XII grossly intact. ABSENT: motor sensory deficit Psychiatric exam: PRESENT: appropriate affect, normal mood. ABSENT: homicidal ideation, suicidal ideation Skin exam: PRESENT: dry, intact, warm. ABSENT: cyanosis, rash Results Laboratory Results: 05/21/18 05:41 05/21/18 05:41 05/21/18 05/21/18 05:41 05:41 WBC 12.4 H RBC 5.39 Hgb 15.6 Hct 46.3 MCV 86 MCH 28.9 MCHC 33.6 RDW 15.8 H Plt Count 226 Seg Neutrophils % 74.2 Lymphocytes % 13.5 Monocytes % 10.8 Eosinophils % 1.2 Basophils % 0.3 Absolute Neutrophils 9.2 H Absolute Lymphocytes 1.7 Absolute Monocytes 1.3 Absolute Eosinophils 0.1 Absolute Basophils 0.0 Sodium 138.1 Potassium 3.1 L Chloride 101 Carbon Dioxide 23 Anion Gap 14 BUN 75 H Creatinine 2.62 H Est GFR ( Amer) 29 L Est GFR (Non-Af Amer) 24 L Glucose 171 H Calcium 9.0 Magnesium 2.6 H 05/16/18 05/16/18 05/16/18 02:55 08:42 14:46 Creatine Kinase CK-MB (CK-2) 16.00 H 18.00 H 13.10 H Troponin I 12.400 14.100 9.900 05/17/18 05/17/18 05/18/18 05:45 23:26 04:40 Creatine Kinase 230 H CK-MB (CK-2) 5.51 H Troponin I 5.090 3.480 05/18/18 05/18/18 05/19/18 04:40 18:10 01:39 Creatine Kinase 161 CK-MB (CK-2) 3.30 Troponin I 3.040 2.020 05/19/18 05/19/18 05/19/18 01:39 07:39 07:39 Creatine Kinase 126 CK-MB (CK-2) 3.07 2.80 Troponin I 1.950 1.850 05/19/18 05/19/18 05/20/18 13:35 13:35 06:35 Creatine Kinase 132 CK-MB (CK-2) 3.37 Troponin I 1.670 1.300 Impressions: Chest X-Ray 05/15/18 20:54 IMPRESSION: NO ACUTE RADIOGRAPHIC FINDING IN THE CHEST. Qualifiers - * PATIENT BEING DISCHARGED WITH ANY OF THE FOLLOWING DIAGNOSIS: PA PA Pt being discharged on Aspirin therapy?: No Reason(s) for not prescribing Aspirin therapy:: Not indicated - On Eliquis PA Pt being discharged on Statins?: Yes PA Pt discharged ACEI/ARBS?: Yes Plan Time Spent: Greater than 30 Minutes
[2018-05-21] MEDS: APIXABAN 2.5 MG TABLET PO SCH (10:11)
[2018-05-21] MEDS: METOPROLOL SUCCINATE 50 MG TAB.SR.24H PO SCH (10:12)
[2018-05-21] MEDS: AMIODARONE HCL 200 MG TABLET PO SCH (10:12)
[2018-05-21] MEDS: FUROSEMIDE 40 MG TABLET PO SCH (10:12)
[2018-05-21] MEDS: TAMSULOSIN HCL 0.4 MG CAP.SR.24H PO SCH (10:13)
[2018-05-21] MEDS: SACUBITRIL/VALSARTAN 24 MG/26 MG TABLET PO SCH (10:15)
[2018-05-21] MEDS: TIOTROPIUM BROMIDE DPI 5 CAP/KIT (18 MCG/CAP) IH SCH (10:15)
[2018-05-21] MEDS: BUDESONIDE/FORMOTEROL 160-4.5 MCG 60 PUFF/6 GM MDI IH SCH (10:16)
[2018-05-21] MEDS ORDERED: POTASSIUM CHLORIDE 10 MEQ CAPSULE.ER PO ONE (10:30)
[2018-05-21 11:56] VITALS: BP 128/70
--- NOTE | 2018-05-21 19:40 | PDOC PROGRESS REPORT ---
Subjective Progress Note for:: 05/21/18 Subjective:: Patient seems to be doing better with gradual improvement. Pt is denying any chest arm or neck discomfort. Patient denying any PND, orthopnea. Patient denied any sustained palpitations, dizziness, syncope, near syncope. Patient denying any fever chills. Patient denying any other significant discomfort. Patient underwent nuclear stress test without any complications. Stress test results were again reviewed with the patient. Patient was noted to be sitting at the bedside getting discharge instructions. He had the LifeVest on. Patient still undecided whether he wants to quit smoking or not. Discussed issues of inappropriate shocks due to atrial fibrillation but on the whole I felt that he needed the LifeVest. Review of systems: Rest review of systems negative. Medications: Medications have been reviewed. Reason For Visit: NSTEMI;A FIB RVR Physical Exam Vital Signs: Temp Pulse Resp BP Pulse Ox 97.9 F 78 18 128/70 H 95 05/21/18 12:02 05/21/18 12:02 05/21/18 12:02 05/21/18 12:02 05/21/18 12:02 Intake & Output 05/20/18 05/21/18 05/22/18 06:59 06:59 06:59 Intake Total 629 725 Output Total 1150 300 Balance -521 425 Weight 92.2 kg 92.97 kg Exam: GENERAL: well-nourished and in no acute distress. Alert and oriented x3 HEAD: Atraumatic, normocephalic. EYES: Pupils equal round and reactive to light, extraocular movements intact, sclera anicteric, conjunctiva are normal. ENT: TMs normal, nares patent, oropharynx clear without exudates. Moist mucous membranes. No oral ulcerations or bleeding gums noted NECK: supple without lymphadenopathy. Trachea is central. No cervical or axillary lymphadenopathy noted. Carotids are 2+, JVD WNL LUNGS: Respiration seems nonlabored, no significant accessory muscle action noted. Bibasilar fine crackles and few a scattered wheezes rales or rhonchi noted. No significant dullness noted on percussion. CHEST: Palpation of the chest wall shows no significant chest wall tenderness. HEART: [place] [employer]AT[employer] ANALYST, No PSH, 1/6 RONIT aortic area, 1/6 truong systolic murmur mitral area, no rubs, no gallops. ABDOMEN: Soft, no significant tenderness appreciated, normoactive bowel sounds. No guarding, no rebound. No rigidity noted . No masses appreciated. EXTREMITIES: Pedal pulses are 1-2+, no calf tenderness noted. No clubbing or cyanosis. negative pedal edema noted NEUROLOGICAL: Focused neurological exam showed no significant neurologic deficit. Normal speech, no focal weakness appreciated. PSYCH: Normal mood, normal affect. Judgment and insight within normal limits. SKIN: No significant ecchymosis, skin is noted to be warm. MUSCULOSKELETAL EXAM: No significant acute joint swelling noted. Results Laboratory Results: 05/21/18 05:41 05/21/18 05:41 05/21/18 05/21/18 05:41 05:41 WBC 12.4 H RBC 5.39 Hgb 15.6 Hct 46.3 MCV 86 MCH 28.9 MCHC 33.6 RDW 15.8 H Plt Count 226 Seg Neutrophils % 74.2 Lymphocytes % 13.5 Monocytes % 10.8 Eosinophils % 1.2 Basophils % 0.3 Absolute Neutrophils 9.2 H Absolute Lymphocytes 1.7 Absolute Monocytes 1.3 Absolute Eosinophils 0.1 Absolute Basophils 0.0 Sodium 138.1 Potassium 3.1 L Chloride 101 Carbon Dioxide 23 Anion Gap 14 BUN 75 H Creatinine 2.62 H Est GFR ( Amer) 29 L Est GFR (Non-Af Amer) 24 L Glucose 171 H Calcium 9.0 Magnesium 2.6 H 05/16/18 05/16/18 05/16/18 02:55 08:42 14:46 Creatine Kinase CK-MB (CK-2) 16.00 H 18.00 H 13.10 H Troponin I 12.400 14.100 9.900 05/17/18 05/17/18 05/18/18 05:45 23:26 04:40 Creatine Kinase 230 H CK-MB (CK-2) 5.51 H Troponin I 5.090 3.480 05/18/18 05/18/18 05/19/18 04:40 18:10 01:39 Creatine Kinase 161 CK-MB (CK-2) 3.30 Troponin I 3.040 2.020 05/19/18 05/19/18 05/19/18 01:39 07:39 07:39 Creatine Kinase 126 CK-MB (CK-2) 3.07 2.80 Troponin I 1.950 1.850 05/19/18 05/19/18 05/20/18 13:35 13:35 06:35 Creatine Kinase 132 CK-MB (CK-2) 3.37 Troponin I 1.670 1.300 EKG Comments: Shows atrial fibrillation with controlled ventricular response Impressions: Chest X-Ray 05/15/18 20:54 IMPRESSION: NO ACUTE RADIOGRAPHIC FINDING IN THE CHEST. Assessment & Plan - Diagnosis (1) Acute combined systolic and diastolic heart failure Is this a current diagnosis for this admission?: Yes (2) Atrial fibrillation with rapid ventricular response Is this a current diagnosis for this admission?: Yes (3) COPD (chronic obstructive pulmonary disease) Qualifiers: Emphysema type: unspecified Is this a current diagnosis for this admission?: Yes (4) Chronic kidney disease, stage III (moderate) Is this a current diagnosis for this admission?: Yes (5) Coronary artery disease Qualifiers: Coronary Disease-Associated Artery/Lesion type: havas[place]ai artery [place] vs. transplanted heart: havasupai heart Associated angina: angina presence unspecified Qualified Code(s): I25.10 - Atherosclerotic heart disease of havasupai coronary artery without angina pectoris Is this a current diagnosis for this admission?: Yes (6) Elevated troponin I level Is this a current diagnosis for this admission?: Yes (7) Hyperlipidemia Is this a current diagnosis for this admission?: Yes (8) Hypertension Qualifiers: Hypertension type: essential hypertension Qualified Code(s): I10 - Essential (primary) hypertension Is this a current diagnosis for this admission?: Yes (9) NSTEMI (non-ST elevated myocardial infarction) Is this a current diagnosis for this admission?: Yes (10) Tobacco use disorder Is this a current diagnosis for this admission?: Yes (11) Cardiomyopathy Qualifiers: Cardiomyopathy type: unspecified Qualified Code(s): I42.9 - Cardiomyopathy , unspecified Is this a current diagnosis for this admission?: Yes - Notes Notes: Cardiomyopathy: Possibly ischemic versus idiopathic. Nuclear stress test did not show large scar therefore possibly idiopathic. Anyway treatment will be the same. EF on EKG gated imaging was noted to be low as well as previous 2D echo had shown low EF. Had discussed that there is increased risk of sudden cardiac . Therefore arranged for patient to have a LifeVest put on. Patient was informed that he needs to be compliant with LifeVest use. Patient was told that periodic echocardiogram will be needed. Patient had counseling performed by the LifeVest team as well. Congestive heart failure: Clinically improved. Continue current regimen and gradually optimize therapy. Patient started on entresto therapy. May not be able to tolerate carvedilol because of COPD. Atrial fibrillation with RVR: Patient would be a candidate for chronic anticoagulation. Discussed stroke prevention and stroke risk with the patient. COPD: Have advised patient on smoking cessation. Continue other bronchodilator and steroid therapy as needed. Chronic kidney disease: Discussed avoiding nonsteroidal and iodinated contrast agent. Patient would benefit from following up with line producer. Elevated troponin I: Based on the level it is quite likely that patient had sustained a non-STEMI but has done well with medical management. Will have low threshold for heart catheterization and this was explained. Hyperlipidemia: Recommend high potency statin therapy. Non-STEMI: Nuclear stress test did not show high risk features but in view of low EF, discussed that low threshold for heart catheterization. Patient does not want to pursue this option at this point. Tobacco abuse disorder: Patient was encouraged to quit smoking but he is reluctant to do so. - Time Time with patient: Greater than 35 minutes - CODE STATUS was discussed, patient remains full code. Surrogate decision-maker unchanged. Multiple medical problems were addressed. More than 50% of the time spent coordinating care, discussing management plans with involved caregivers. Management plans discussed with involved personnels. Medical decision making was of moderate to high complexity, patient's has multiple comorbidities. Medications reviewed and adjusted accordingly: Yes
== END 2018-05-21 13:18 | disposition home or self-care (01) | DRG 280 ==
LOC: ER 20:47 → EH 22:36 → 3S 05-16 17:00
PROVIDERS: ADMIT Internal Medicine; ATTEND Internal Medicine
PROC: 3E0F73Z Introduction of Anti-inflammatory into Respiratory Tract, Via Natural or Artificial Opening (ICD-10-PCS; principal; 2018-05-15)
DX: I48.0 Paroxysmal atrial fibrillation (principal); I21.4 Non-ST elevation (NSTEMI) myocardial infarction; I50.41 Acute combined systolic (congestive) and diastolic (congestive) heart failure; I13.0 Hypertensive heart and chronic kidney disease with heart failure and stage 1 through stage 4 chronic kidney disease, or unspecified chronic kidney disease; F11.20 Opioid dependence, uncomplicated; I42.9 Cardiomyopathy, unspecified; I25.10 Atherosclerotic heart disease of native coronary artery without angina pectoris; N18.3 Chronic kidney disease, stage 3 (moderate); E11.22 Type 2 diabetes mellitus with diabetic chronic kidney disease; J44.9 Chronic obstructive pulmonary disease, unspecified; G89.29 Other chronic pain; E78.00 Pure hypercholesterolemia, unspecified; E87.6 Hypokalemia; F17.210 Nicotine dependence, cigarettes, uncomplicated; M19.90 Unspecified osteoarthritis, unspecified site; F32.9 Major depressive disorder, single episode, unspecified; K59.00 Constipation, unspecified; E11.51 Type 2 diabetes mellitus with diabetic peripheral angiopathy without gangrene; M54.9 Dorsalgia, unspecified; Z60.2 Problems related to living alone; I25.2 Old myocardial infarction; Z79.899 Other long term (current) drug therapy; Z90.49 Acquired absence of other specified parts of digestive tract; Z91.19 Patient's noncompliance with other medical treatment and regimen; Z88.3 Allergy status to other anti-infective agents; Z88.8 Allergy status to other drugs, medicaments and biological substances; Z83.3 Family history of diabetes mellitus; Z82.49 Family history of ischemic heart disease and other diseases of the circulatory system
CPT/HCPCS: 36415; 71045; 78452; 80048; 80053; 80061; 81001; 82550; 82553; 82962; 83735; 83880; 84439; 84443; 84481; 84484; 85025; 85027; 85610; 85730; 93005; 93010; 93017; 93306; 94640; 96365; 96376; 99291; A9500; J0360; J0706; J1650; J1815; J1940; J2405; J2785; J3490; J7030; J7620; Q9969; S0164

== ENCOUNTER → 2018-06-01 | Outpatient (CLI) | payer MEDICARE, MEDICAID ==
[2018-06-01 11:10] LABS: HEMATOCRIT 43.3 % (37.9-51.0); HEMOGLOBIN 14.2 g/dL (13.5-17.0); MEAN CORPUSCULAR HEMOGLOBIN 28.7 pg (27.0-33.4); MEAN CORPUSCULAR HGB CONC 32.8 g/dL (32.0-36.0); MEAN CORPUSCULAR VOLUME 88 fl (80-97); PLATELET COUNT 287 10^3/uL (150-450); RED BLOOD COUNT 4.94 10^6/uL (4.35-5.55); RED CELL DISTRIBUTION WIDTH 15.8 % (11.5-14.0); WHITE BLOOD COUNT 12.4 10^3/uL (4.0-10.5)
[2018-06-01 11:19] LABS: INTERNATIONAL RATION (INR) 0.95; PROTHROMBIN TIME 13.1 SEC (11.4-15.4)
[2018-06-01 11:20] LABS: PARTIAL THROMBOPLASTIN TIME 30.8 SEC (23.5-35.8)
[2018-06-01 11:23] LABS: ALANINE AMINOTRANSFERASE 41 U/L (21-72); ALBUMIN 3.3 g/dL (3.5-5.0); ALKALINE PHOSPHATASE 86 U/L (38-126); ASPARTATE AMINO TRANSFERASE 33 U/L (17-59); BILIRUBIN,DIRECT 0.3 mg/dL (0.0-0.4); BILIRUBIN,TOTAL 0.3 mg/dL (0.2-1.3); TOTAL PROTEIN 6.4 g/dL (6.3-8.2)
--- NOTE | 2018-06-01 15:01 | RADIOLOGY REPORT (SQ) ---
EXAM DESCRIPTION: CHEST 2 VIEWS COMPLETED DATE/TIME: 06/01/2018 11:31 am REASON FOR STUDY: SOB COMPARISON: 06/29/2014 EXAM PARAMETERS: NUMBER OF VIEWS: two views TECHNIQUE: Digital Frontal and Lateral radiographic views of the chest acquired. RADIATION DOSE: NA LIMITATIONS: none FINDINGS: LUNGS AND PLEURA: No opacities, masses or pneumothorax. No pleural effusion. MEDIASTINUM AND HILAR STRUCTURES: No masses or contour abnormalities. HEART AND VASCULAR STRUCTURES: Heart normal size. No evidence for failure. BONES: No acute findings. HARDWARE: None in the chest. OTHER: No other significant finding. IMPRESSION: NO ACUTE RADIOGRAPHIC FINDING IN THE CHEST. TECHNICAL DOCUMENTATION: JOB ID: [id number] [employer]- All Rights Reserved Reading location - IP/workstation name: [email or web address]
== END ==
LOC: LAB 10:42
PROVIDERS: ATTEND Specialist
DX: N18.3 Chronic kidney disease, stage 3 (moderate) (principal); I48.91 Unspecified atrial fibrillation; R04.2 Hemoptysis; R06.02 Shortness of breath
CPT/HCPCS: 36415; 71046; 80076; 85027; 85610; 85730

== ENCOUNTER → 2018-06-03 | Outpatient (CLI) | payer MEDICARE, MEDICAID ==
[2018-06-03 14:24] LABS: APPEARANCE,URINE CLEAR; BILIRUBIN,URINE NEGATIVE (NEGATIVE); COLOR,URINE YELLOW; GLUCOSE, URINE NEGATIVE (NEGATIVE); KETONES,URINE NEGATIVE (NEGATIVE); LEUKOCYTE ESTERASE,URINE NEGATIVE (NEGATIVE); NITRITE,URINE NEGATIVE (NEGATIVE); PROTEIN,URINE NEGATIVE (NEGATIVE); URINE SPECIFIC GRAVITY 1.009; UROBILINOGEN,URINE NEGATIVE mg/dL (<2.0)
[2018-06-03 14:25] LABS: HEMATOCRIT 42.6 % (37.9-51.0); MEAN CORPUSCULAR HEMOGLOBIN 28.5 pg (27.0-33.4); MEAN CORPUSCULAR HGB CONC 32.9 g/dL (32.0-36.0); MEAN CORPUSCULAR VOLUME 87 fl (80-97); PLATELET COUNT 276 10^3/uL (150-450); RED BLOOD COUNT 4.91 10^6/uL (4.35-5.55); RED CELL DISTRIBUTION WIDTH 15.7 % (11.5-14.0); WHITE BLOOD COUNT 11.4 10^3/uL (4.0-10.5)
[2018-06-03 14:50] LABS: ANION GAP 13 (5-19); BLOOD UREA NITROGEN 25 mg/dL (7-20); CALCIUM 8.9 mg/dL (8.4-10.2); CARBON DIOXIDE 29 mmol/L (22-30); CHLORIDE 98 mmol/L (98-107); GLUCOSE 129 mg/dL (75-110); POTASSIUM 3.8 mmol/L (3.6-5.0); SODIUM 139.5 mmol/L (137-145)
== END ==
LOC: OD 13:11
PROVIDERS: ATTEND Internal Medicine Nephrology
DX: E11.22 Type 2 diabetes mellitus with diabetic chronic kidney disease (principal); N18.3 Chronic kidney disease, stage 3 (moderate); E87.6 Hypokalemia; J44.9 Chronic obstructive pulmonary disease, unspecified
CPT/HCPCS: 36415; 80048; 81001; 85027

== ENCOUNTER 2018-09-25 11:24 | Emergency (ER) | payer MEDICARE, MEDICAID ==
[2018-09-25] MEDS ORDERED: ASPIRIN 81 MG TABLET, CHEWABLE PO ONE (11:25)
[2018-09-25 11:57] LABS: ABSOLUTE BASOPHILS # (AUTO) 0.1 10^3/uL (0.0-0.2); ABSOLUTE EOSINOPHILS # (AUTO) 1.4 10^3/uL (0.0-0.6); ABSOLUTE LYMPHOCYTES (AUTO) 2.3 10^3/uL (0.5-4.7); BASOPHILS % (AUTO) 0.5 % (0-2); EOSINOPHILS % (AUTO) 10.9 % (0-6); HEMOGLOBIN 13.4 g/dL (13.5-17.0); LYMPHOCYTES % (AUTO) 18.1 % (13-45); MEAN CORPUSCULAR HEMOGLOBIN 28.1 pg (27.0-33.4); MEAN CORPUSCULAR HGB CONC 33.5 g/dL (32.0-36.0); MEAN CORPUSCULAR VOLUME 84 fl (80-97); MONOCYTES % (AUTO) 7.6 % (3-13); PLATELET COUNT 315 10^3/uL (150-450); RED BLOOD COUNT 4.77 10^6/uL (4.35-5.55); RED CELL DISTRIBUTION WIDTH 16.6 % (11.5-14.0); SEGMENTED NEUTROPHILS % (AUTO) 62.9 % (42-78); TOTAL CELLS COUNTED % (AUTO) 100 %; WHITE BLOOD COUNT 12.7 10^3/uL (4.0-10.5)
--- NOTE | 2018-09-25 11:58 | RADIOLOGY REPORT (SQ) ---
EXAM DESCRIPTION: CHEST SINGLE VIEW COMPLETED DATE/TIME: 09/25/2018 11:47 am REASON FOR STUDY: cp COMPARISON: Chest films 06/01/2018, 06/29/2014 EXAM PARAMETERS: NUMBER OF VIEWS: One view. TECHNIQUE: Single frontal radiographic view of the chest acquired. RADIATION DOSE: NA LIMITATIONS: None. FINDINGS: LUNGS AND PLEURA: Mild bibasilar bandlike atelectasis. No fluffy alveolar infiltrates worrisome for edema or pneumonia. No pleural effusion. No pneumothor ax. MEDIASTINUM AND HILAR STRUCTURES: No masses. Contour normal. HEART AND VASCULAR STRUCTURES: Heart normal in size. Normal vasculature. BONES: No acute findings. HARDWARE: None in the chest. OTHER: No other significant finding. IMPRESSION: Bandlike bibasilar airspace disease likely atelectasis. TECHNICAL DOCUMENTATION: JOB ID: [id number] [employer]- All Rights Reserved Reading location - IP/workstation name: [email or web address]
[2018-09-25 12:21] LABS: ALANINE AMINOTRANSFERASE 63 U/L (21-72); ALBUMIN 3.7 g/dL (3.5-5.0); ALKALINE PHOSPHATASE 106 U/L (38-126); ANION GAP 10 (5-19); ASPARTATE AMINO TRANSFERASE 41 U/L (17-59); BILIRUBIN,DIRECT 0.3 mg/dL (0.0-0.4); BILIRUBIN,TOTAL 0.5 mg/dL (0.2-1.3); BLOOD UREA NITROGEN 28 mg/dL (7-20); CALCIUM 9.4 mg/dL (8.4-10.2); CARBON DIOXIDE 35 mmol/L (22-30); CHLORIDE 95 mmol/L (98-107); CREATINE KINASE 117 U/L (55-170); GLUCOSE 167 mg/dL (75-110); SODIUM 139.9 mmol/L (137-145)
[2018-09-25] MEDS ORDERED: HEPARIN SOD (PORCINE) 1,000 UNIT/ML 10 ML VIAL IV ONE (12:23)
[2018-09-25] MEDS ORDERED: HEPARIN SODIUM,PORCINE/D5W 25,000 UNIT/250 ML RTUINJ IV PRN (12:23)
[2018-09-25 12:29] LABS: CREATINE KINASE MB 2.13 ng/mL (<4.55)
[2018-09-25 12:33] LABS: TROPONIN I 0.021 ng/mL
--- NOTE | 2018-09-25 12:45 | ER Document Report ---
ED Cardiac - General Chief Complaint: Chest Pain Stated Complaint: CHEST PAIN Time Seen by Provider: 09/25/18 11:57 TRAVEL OUTSIDE OF THE [place] IN LAST 30 DAYS: No - HPI Patient complains to provider of: Chest pain - 72 yo man with a history of emphysema, PVD and NSTEMI 4 months prior that presents for chest pressure and nausea with shortness of breath in the left side of the chest for the last couple of hours. Denies any trauma, says this is not as bad as his previous heart attack pain. continues to smoke every day, misses most doses of medications. - Related Data Allergies/Adverse Reactions: levofloxacin [From Levaquin] Allergy (Unknown, Verified 05/16/18 07:52) uncertain fluticasone propionate [From Advair Diskus] Adverse Reaction (Severe, Verified 05/16/18 07:52) "Can't use my arms" salmeterol xinafoate [From Advair Diskus] Adverse Reaction (Severe, Verified 12/02 07:52) "Can't use my arms" varenicline tartrate [From Chantix] Adverse Reaction (Intermediate, Verified 12/02 07:52) Hallucinations Past Medical History - General Information source: Patient, Relative - Social History Smoking Status: Current Every Day Smoker Frequency of alcohol use: Occasional Drug Abuse: None Family History: CAD, DM - Past Medical History Cardiac Medical History: Reports: Hx Heart Attack - 1998, Hx Hypertension Denies: Hx Atrial Fibrillation, Hx Coronary Artery Disease Pulmonary Medical History: Reports: Hx Asthma, Hx Bronchitis, Hx COPD Denies: Hx Pneumonia Neurological Medical History: Denies: Hx Cerebrovascular Accident, Hx Seizures Endocrine Medical History: Reports: Hx Diabetes Mellitus Type 2 Renal/ Medical History: Denies: Hx Peritoneal Dialysis GI Medical History: Reports: Hx Ulcer - HX OF. Denies: Hx Hepatitis, Hx Hiatal Hernia Musculoskeletal Medical History: Reports Hx Arthritis Psychiatric Medical History: Reports: Hx Depression Denies: Hx Attention Deficit Hyperactivity Disorder Infectious Medical History: Denies: Hx Hepatitis Past Surgical History: Reports: Hx Bowel Surgery - sigmoid colon resection 2007. Denies: Hx Open Heart Surgery, Hx Pacemaker - Immunizations Hx Diphtheria, Pertussis, Tetanus Vaccination: No Review of Systems - Review of Systems -: Yes All other systems reviewed and negative Physical Exam - Vital signs Vitals: Pulse Ox 90 L 09/25/18 11:25 - General General appearance: Appears well, Alert - HEENT Head: Normocephalic, Atraumatic Eyes: Normal Pupils: PERRL - Respiratory Respiratory status: No respiratory distress Chest status: Nontender Breath sounds: Wheezing Chest palpation: Normal - Cardiovascular Rhythm: Regular Heart sounds: Normal auscultation Murmur: No - Abdominal Inspection: Normal Distension: No distension Bowel sounds: Normal Tenderness: Nontender Organomegaly: No organomegaly - Back Back: Normal - Extremities General upper extremity: Normal inspection, Nontender, Normal color, Normal ROM , Normal temperature General lower extremity: Normal inspection, Nontender, Normal color, Normal ROM , Normal temperature, Normal weight bearing. No: Diego's sign - Neurological Neuro grossly intact: Yes Cognition: Normal Orientation: AAOx4 Sneha Coma Scale Eye Opening: Spontaneous Sneha Coma Scale Verbal: Oriented Sneha Coma Scale Motor: Obeys Commands Sneha Coma Scale Total: 15 Speech: Normal Motor strength normal: LUE, RUE, LLE, RLE Sensory: Normal - Psychological Associated symptoms: Normal affect, Normal mood Course - Re-evaluation Re-evalutation: PAtient with an EKG concerning for possible infarct, poor artifact quality makes interpretation of the inferior difficult but there are multiple depressions through contiguous leads. With application of nitro paste he is pain free. Will repeat EKG, EKG shows t wave inversions in the chest leads without obviuos stemi criteria met. Am concerned however this patient is having a major cardiac event. will initiate workup for such. Will administer aspirin. will monitor aggressively and reassess. 09/25/18 12:50 Spoke to board filler at [facility] in [place], [facility]. He states that this patient had a minimum has unstable angina likely should be treated as an NSTEMI would initiate anticoagulation at this time. Plan to speak to the on-call hospitalist for this patient will plan for continuing monitoring in emergency department. Have initiated heparin for this patient. Have a 2-hour delta troponin pending at this time. His initial troponin is 0.02. PAtient is chest pain free at this time. He has been accepted for rapid transport to [facility] for consideration of intervention. WIll continue to monitor. At the time of transport this patient was hemodynamically stable. at the time of transport the patient had recieved ASA, had nitro in place, had heparin infusing. - Vital Signs Vital signs: Temp Pulse Resp BP Pulse Ox 98.7 F 16 149/84 H 95 09/25/18 13:33 09/25/18 14:01 09/25/18 14:00 09/25/18 14:01 - Laboratory Result Diagrams: 09/25/18 10:46 09/25/18 10:46 Laboratory results interpreted by me: 09/25/18 09/25/18 09/25/18 10:46 10:46 12:30 WBC 12.7 H Hgb 13.4 L RDW 16.6 H Eosinophils % 10.9 H Absolute Eosinophils 1.4 H Potassium 3.0 L* Chloride 95 L Carbon Dioxide 35 H BUN 28 H Creatinine 2.01 H Est GFR ( Amer) 40 L Est GFR (Non-Af Amer) 33 L Glucose 167 H Urine Blood SMALL H Critical Care Note - Critical Care Note Total time excluding time spent on procedures (mins): 35 Discharge - Discharge Clinical Impression: Tobacco use disorder, Non-STEMI (non-ST elevated myocardial infarction), Peripheral vascular disease Left shoulder pain Qualifiers: Chronicity: unspecified Qualified Code(s): M25.512 - Pain in left shoulder Condition: Stable Disposition: Critical access hospital Referrals: Yash DIXON MD [Primary Care Provider] - Follow up as needed
[2018-09-25 12:55] LABS: INTERNATIONAL RATION (INR) 0.96; PARTIAL THROMBOPLASTIN TIME 27.3 SEC (23.5-35.8); PROTHROMBIN TIME 13.2 SEC (11.4-15.4)
[2018-09-25 13:05] LABS: APPEARANCE,URINE CLEAR; BILIRUBIN,URINE NEGATIVE (NEGATIVE); COLOR,URINE COLORLESS; GLUCOSE, URINE NEGATIVE (NEGATIVE); KETONES,URINE NEGATIVE (NEGATIVE); LEUKOCYTE ESTERASE,URINE NEGATIVE (NEGATIVE); NITRITE,URINE NEGATIVE (NEGATIVE); PROTEIN,URINE NEGATIVE (NEGATIVE); URINE SPECIFIC GRAVITY 1.008; UROBILINOGEN,URINE NEGATIVE mg/dL (<2.0)
[2018-09-25 14:07] VITALS: BP 149/84
[2018-09-25] MEDS ORDERED: HEPARIN SOD (PORCINE) 1,000 UNIT/ML 10 ML VIAL IV PRN (15:24)
--- NOTE | 2018-09-25 20:59 | EKG REPORT ---
SEVERITY:- ABNORMAL ECG - ATRIAL FIBRILLATION IVCD, CONSIDER ATYPICAL RBBB ST ELEVATION, PROBABLE INFERIOR INJURY : Confirmed by: Harmony Dennis MD 25-Sep-2018 20:58:34
--- NOTE | 2018-09-25 20:59 | EKG REPORT ---
SEVERITY:- ABNORMAL ECG - VENTRICULAR-PACED COMPLEXES NONSPECIFIC INTRAVENTRICULAR CONDUCTION DELAY NONSPECIFIC ST DEPRESSION : Confirmed by: Harmony Dennis MD 25-Sep-2018 20:58:48
== END 2018-09-25 14:30 | disposition short-term general hospital (02) ==
LOC: ER 11:24
DX: I21.4 Non-ST elevation (NSTEMI) myocardial infarction (principal); I73.9 Peripheral vascular disease, unspecified; M25.512 Pain in left shoulder; R07.9 Chest pain, unspecified; J43.9 Emphysema, unspecified; I25.2 Old myocardial infarction; F17.200 Nicotine dependence, unspecified, uncomplicated; Z79.899 Other long term (current) drug therapy; I10 Essential (primary) hypertension
CPT/HCPCS: 93005; 96376; 99285; 96365; 96366; 36415; 82553; 82550; 85025; 85610; 85730; 80053; 81001; 84484; 71045; 93010; J1644 ×2

== ENCOUNTER 2018-11-17 02:45 | Inpatient (IN) | payer MEDICARE, MEDICAID ==
[2018-11-17] MEDS ORDERED: ALBUTEROL SULFATE 0.083% NEB 2.5 MG/3 ML AMPUL NEB ONE (02:55)
[2018-11-17] MEDS ORDERED: IPRATROPIUM/ALBUTEROL 0.5-2.5 MG/3 ML AMPUL NEB ONE (02:55)
--- NOTE | 2018-11-17 02:57 | ER Document Report ---
ED General - General Stated Complaint: SHORTNESS OF BREATH Time Seen by Provider: 11/17/18 02:55 Notes: Patient is a pleasant 72-year-old male who presents with complaint of difficulty breathing is worsened over the last 24 hours. He does have history of coronary bypass surgery in September. He denies any chest pain. He says a lot of wheezing and difficulty breathing. He does continue to smoke. He was diagnosed with stage IV lung cancer when he was at [facility]. He says he does not want chemotherapy or radiation and therefore does not want to follow-up with an oncologist. He denies any fevers. No vomiting. No diarrhea. No other complaints at this time. He does have a advanced directive. Patient says that he is okay with intubation and being placed on a ventilator. He says if he is on a ventilator for more than 72 hours and he wants to be removed. At this time he says he is okay with CPR. TRAVEL OUTSIDE OF THE [place] IN LAST 30 DAYS: No - Related Data Allergies/Adverse Reactions: levofloxacin [From Levaquin] Allergy (Unknown, Verified 05/16/18 07:52) uncertain fluticasone propionate [From Advair Diskus] Adverse Reaction (Severe, Verified 05/16/18 07:52) "Can't use my arms" salmeterol xinafoate [From Advair Diskus] Adverse Reaction (Severe, Verified 05/16/18 07:52) "Can't use my arms" varenicline tartrate [From Chantix] Adverse Reaction (Intermediate, Verified 07:52) Hallucinations Past Medical History - Social History Smoking Status: Current Every Day Smoker Frequency of alcohol use: None Drug Abuse: None Family History: CAD, DM - Past Medical History Cardiac Medical History: Reports: Hx Heart Attack - 1998, Hx Hypertension Denies: Hx Atrial Fibrillation, Hx Coronary Artery Disease Pulmonary Medical History: Reports: Hx Asthma, Hx Bronchitis, Hx COPD Denies: Hx Pneumonia Neurological Medical History: Denies: Hx Cerebrovascular Accident, Hx Seizures Endocrine Medical History: Reports: Hx Diabetes Mellitus Type 2 Renal/ Medical History: Denies: Hx Peritoneal Dialysis GI Medical History: Reports: Hx Ulcer - HX OF. Denies: Hx Hepatitis, Hx Hiatal Hernia Musculoskeletal Medical History: Reports Hx Arthritis Psychiatric Medical History: Reports: Hx Depression Denies: Hx Attention Deficit Hyperactivity Disorder Infectious Medical History: Denies: Hx Hepatitis Past Surgical History: Reports: Hx Bowel Surgery - sigmoid colon resection 2008, Hx Cardiac Catheterization. Denies: Hx Open Heart Surgery, Hx Pacemaker - Immunizations Hx Diphtheria, Pertussis, Tetanus Vaccination: No Review of Systems - Review of Systems Notes: My Normal Review Basic REVIEW OF SYSTEMS: CONSTITUTIONAL : Denies fever, chills, or sweats. Denies recent illness. EENT: Denies eye, ear, throat, or mouth pain or symptoms. Denies nasal or sinus congestion. CARDIOVASCULAR: Denies chest pain. RESPIRATORY: Difficulty breathing. GASTROINTESTINAL: Denies abdominal pain. Denies nausea, vomiting, or diarrhea. MUSCULOSKELETAL: Denies neck or back pain or joint pain or swelling. SKIN: Denies rash or skin lesions. NEUROLOGICAL: Denies altered mental status or loss of consciousness. Denies headache. Denies weakness or paralysis or loss of use of either side. Denies problems with gait or speech. Denies sensory or motor loss. PSYCHIATRIC: Denies anxiety or stress or depression. ALL OTHER SYSTEMS REVIEWED AND NEGATIVE. Physical Exam - Vital signs Vitals: Resp Pulse Ox 0 L 87 L 11/17/18 02:47 11/17/18 02:47 - Notes Notes: General Appearance: Well nourished, alert, cooperative, moderate acute distress, no obvious discomfort. Vitals: reviewed, See vital signs table. Head: no swelling or tenderness to the head Eyes: PERRL, EOMI, Conjuctiva clear Mouth: No decreasd moisture Lungs: Diffuse wheezing. Poor air exchange. Some rhonchorous breath sounds Heart: Normal rate, Regular rythm, No murmur, no rub Abdomen: Normal BS, soft, No rigidity, No abdominal tenderness, No guarding, no rebound, no abdominal masses, no organomegaly Extremities: good pulses in all extremities, no swelling or tenderness in the extremities, no edema. Skin: warm, dry, appropriate color, no rash Neuro: speech clear, oriented x 3, normal affect, responds appropriately to questions. Course - Re-evaluation Re-evalutation: 11/17/18 03:58 Patient was initially feeling improved. Patient now is starting to feel more short of breath. Lung auscultation is actually improved some and that he does not have as much wheezing. His current oxygen saturation is anywhere from 89- 91% on 4 L oxygen. I have ordered BiPAP. We will place him on BiPAP to see if this does not help him significantly. 11/17/18 05:15 He is feeling much improved on the BiPAP. His oxygen saturations are now staying in the mid 90s. His chest x-ray shows possible pneumonia. This could also be a potential cancer. I did speak with the hospitalist, Dr. Lin, request CT scan to better delineate this as well as to rule out pulmonary embolism being his history of cancer. He says he will accept the patient for admission. CT scan has been ordered. 11/17/18 22:53 - Vital Signs Vital signs: Temp Pulse Resp BP Pulse Ox 97.7 F 69 20 154/69 H 96 11/17/18 19:22 11/17/18 19:22 11/17/18 19:22 11/17/18 19:22 11/17/18 19:22 - Laboratory Result Diagrams: 11/17/18 02:57 11/17/18 02:57 Laboratory results interpreted by me: 11/17/18 11/17/18 11/17/18 02:57 02:57 02:57 WBC 12.9 H RBC 4.17 L Hgb 11.6 L Hct 35.3 L RDW 17.5 H Lymphocytes % 12.3 L Eosinophils % 18.5 H Absolute Eosinophils 2.4 H VBG pH 7.44 H VBG HCO3 35.6 H Carbon Dioxide 36 H BUN 27 H Creatinine 1.73 H Est GFR ( Amer) 47 L Est GFR (Non-Af Amer) 39 L Glucose 163 H Direct Bilirubin 0.5 H AST 259 H ALT 311 H Alkaline Phosphatase 142 H NT-Pro-B Natriuret Pep Albumin 3.1 L 11/17/18 02:57 WBC RBC Hgb Hct RDW Lymphocytes % Eosinophils % Absolute Eosinophils VBG pH VBG HCO3 Carbon Dioxide BUN Creatinine Est GFR ( Amer) Est GFR (Non-Af Amer) Glucose Direct Bilirubin AST ALT Alkaline Phosphatase NT-Pro-B Natriuret Pep 3040 H Albumin - EKG Interpretation by Me Additional EKG results interpreted by me: 11/17/18 02:56 EKG is reviewed and interpreted by me. EKG shows sinus rhythm with a rate of [address] segment elevation. SC interval is slightly prolonged. QRS duration is within normal range. QTc interval is prolonged. Old EKG for comparison is from September 25, 2018. Discharge - Discharge Clinical Impression: Dyspnea, COPD (chronic obstructive pulmonary disease) Condition: Stable Disposition: ADMITTED OBSERVATION Admitting Provider: Hospitalist Unit Admitted: Telemetry
[2018-11-17 03:14] LABS: VENOUS BLOOD BASE EXCESS 9.8 mmol/L; VENOUS BLOOD HCO3 35.6 mmol/L (20-32); VENOUS BLOOD PCO2 53.4 mmHg (35-63); VENOUS BLOOD PH 7.44 (7.30-7.42)
[2018-11-17 03:16] LABS: ABSOLUTE BASOPHILS # (AUTO) 0.1 10^3/uL (0.0-0.2); ABSOLUTE EOSINOPHILS # (AUTO) 2.4 10^3/uL (0.0-0.6); ABSOLUTE LYMPHOCYTES (AUTO) 1.6 10^3/uL (0.5-4.7); ABSOLUTE MONOCYTES (AUTO) 1.1 10^3/uL (0.1-1.4); ABSOLUTE NEUT (AUTO) 7.8 10^3/uL (1.7-8.2); BASOPHILS % (AUTO) 0.5 % (0-2); EOSINOPHILS % (AUTO) 18.5 % (0-6); HEMATOCRIT 35.3 % (37.9-51.0); HEMOGLOBIN 11.6 g/dL (13.5-17.0); LYMPHOCYTES % (AUTO) 12.3 % (13-45); MEAN CORPUSCULAR HEMOGLOBIN 27.9 pg (27.0-33.4); MEAN CORPUSCULAR HGB CONC 32.9 g/dL (32.0-36.0); MEAN CORPUSCULAR VOLUME 85 fl (80-97); MONOCYTES % (AUTO) 8.4 % (3-13); PLATELET COUNT 327 10^3/uL (150-450); RED BLOOD COUNT 4.17 10^6/uL (4.35-5.55); RED CELL DISTRIBUTION WIDTH 17.5 % (11.5-14.0); SEGMENTED NEUTROPHILS % (AUTO) 60.3 % (42-78); TOTAL CELLS COUNTED % (AUTO) 100 %; WHITE BLOOD COUNT 12.9 10^3/uL (4.0-10.5)
[2018-11-17 03:43] LABS: ALANINE AMINOTRANSFERASE 311 U/L (21-72); ALBUMIN 3.1 g/dL (3.5-5.0); ALKALINE PHOSPHATASE 142 U/L (38-126); ANION GAP 8 (5-19); ASPARTATE AMINO TRANSFERASE 259 U/L (17-59); BILIRUBIN,DIRECT 0.5 mg/dL (0.0-0.4); BILIRUBIN,TOTAL 0.5 mg/dL (0.2-1.3); BLOOD UREA NITROGEN 27 mg/dL (7-20); CALCIUM 8.9 mg/dL (8.4-10.2); CARBON DIOXIDE 36 mmol/L (22-30); CHLORIDE 98 mmol/L (98-107); GLUCOSE 163 mg/dL (75-110); POTASSIUM 3.7 mmol/L (3.6-5.0); SODIUM 142.1 mmol/L (137-145); TOTAL PROTEIN 6.5 g/dL (6.3-8.2)
--- NOTE | 2018-11-17 03:55 | RADIOLOGY REPORT (SQ) ---
EXAM DESCRIPTION: XR CHEST 1 VIEW COMPLETED DATE/TME: 11/17/2018 02:55 CLINICAL HISTORY: 72 years Male, dyspnea COMPARISON: 06/01/18 NUMBER OF VIEWS/TECHNIQUE: 1/AP FINDINGS: Adequate lung volume, moderate streaky and patchy opacity at the left lung base, normal cardiac silhouette, and intact bony thorax. Sternotomy. Atherosclerotic vascular disease. IMPRESSION: Small left lower lobar pneumonia/atelectasis. Recommend CR/CT surveillance including at 7-12 weeks following initiation of any clinically warranted therapy.
[2018-11-17] MEDS ORDERED: CHLORPHENIRAMINE MALEATE 4 MG TABLET PO ONE (05:18)
[2018-11-17] MEDS ORDERED: ACETAMINOPHEN 325 MG TABLET PO PRN (05:18)
[2018-11-17] MEDS ORDERED: IPRATROPIUM/ALBUTEROL 0.5-2.5 MG/3 ML AMPUL NEB PRN (05:18)
[2018-11-17] MEDS ORDERED: CEFEPIME 2 GM/D5W RTU 2 GM/50 ML RTUPB IV ONE ×2 (05:30→17:26)
[2018-11-17] MEDS ORDERED: (PENDING PHARMACY ID) (Levothyroxine Sodium [Synthroid] 137 MCG) PO SCH (06:00)
[2018-11-17] MEDS ORDERED: FLUTICASONE NASAL SPRAY 50 MCG/SPRY 120 SPRAY/16 GM NASL ONE (06:00)
--- NOTE | 2018-11-17 06:29 | RADIOLOGY REPORT (SQ) ---
CLINICAL HISTORY: dyspnea COMPARISON: None. TECHNIQUE: CT CHEST ANGIOGRAPHY WITHOUT THEN WITH IV CONTRAST on 11/17/2018 5:07 AM STATOR TESTER. MIPS reconstructions were generated. This exam was performed according to our departmental dose-optimization program, which includes automated exposure control, adjustment of the mA and/or kV according to patient size and/or use of iterative reconstruction technique. MIP images were generated. FINDINGS: Thoracic aorta is normal in course and caliber without aneurysm or dissection. Pulmonary arteries are adequately opacified without acute or chronic filling defects. The heart is enlarged. Sternotomy is present. There is no pericardial effusion. There are multiple enlarged mediastinal lymph nodes including a 2.9 cm carinal lymph node, 1.7 cm right paratracheal lymph node and a 2.1 cm subcarinal lymph node. There is a small left pleural effusion. Central airways are patent. There is upper lung paraseptal emphysema. There is extensive left lower lobe atelectasis. There is consolidation as well as tree-in-bud nodularity in the right lower lobe, right middle lobe and posterior left upper lobe. In the upper abdomen, there are multiple bilateral simple renal cysts. There are no acute osseous findings. No suspicious bony lesions. IMPRESSION: Cardiomegaly with no aortic dissection or aneurysm. No pulmonary embolus. Bilateral pneumonia with mediastinal adenopathy.
[2018-11-17] MEDS: HYDRALAZINE HCL 50 MG TABLET PO SCH ×3 (06:31→21:17)
[2018-11-17] MEDS: HEPARIN SOD (PORCINE) 5,000 UNIT/ML 1 ML SYRINGE SUBCUT SCH ×3 (06:34→21:21)
--- NOTE | 2018-11-17 06:49 | PDOC H&P ---
History of Present Illness Admission Date/PCP: 11/17/18 05:40 CHRISTIANA BETTENCOURT Patient complains of: Shortness of breath History of Present Illness: BETSY VINES is a 72 year old male with a past medical history of oxygen dependent COPD congestive heart failure with an ejection fraction of 25%, atrial fibrillation without anticoagulation secondary to hemoptysis, coronary artery disease status post bypass grafting 6 months ago, stage III chronic kidney dis ease and stage IV lung cancer without therapy by choice. Patient presents with 4 days of worsening shortness of breath associated with rhinorrhea denying sore throat, uncontrolled GERD nausea or vomiting. In the emergency room is found to have hypoxia, leukocytosis, respiratory distress with retractions and abnormal LFTs. He receives several nebulizer treatments and BiPAP placed on empiric anti biotics and referred to the hospitalist for admission. Patient verifies his CODE STATUS is full code but declines oncology consultation. Past Medical History Cardiac Medical History: Reports: Atrial Fibrillation, Myocardial Infarction - 1998, Hypertension Denies: Coronary Artery Disease Pulmonary Medical History: Reports: Asthma, Bronchitis, Chronic Obstructive Pulmonary Disease (COPD) Denies: Pneumonia Neurological Medical History: Denies: Seizures Endocrine Medical History: Reports: Diabetes Mellitus Type 2 GI Medical History: Denies: Hepatitis, Hiatal Hernia Musculoskeltal Medical History: Reports: Arthritis Psychiatric Medical History: Reports: Depression, Tobacco Dependency Denies: Alcohol Dependency, Attention Deficit Hyperactivity Disorder Hematology: Denies: Anemia, Sickle Cell Disease Past Surgical History Past Surgical History: Reports: Cardiac Catheterization, Coronary Artery Bypass Graft Denies: Pacemaker Social History Information Source: Patient, [facility] Records Lives with: Spouse/Significant other Smoking Status: Current Every Day Smoker Frequency of Alcohol Use: None Hx Recreational Drug Use: No Drugs: None Hx Prescription Drug Abuse: No Family History Family History: CAD, DM Parental Family History Reviewed: Yes Children Family History Reviewed: Yes Sibling(s) Family History Reviewed.: Yes Medication/Allergy Home Medications: Albuterol Sulfate [Proair HFA Inhalation Aerosol 8.5 gm MDI] 2 puff IH Q4HP PRN 05/16/18 Budesonide/Formoterol Fumarate [Symbicort 160-4.5 Mcg Inhaler] 2 puff IH Q12 05/16/18 Clonazepam [Klonopin] 0.5 mg PO Q12 05/16/18 Ipratropium/Albuterol Sulfate [Duoneb 3 ml Ampul] 1 vial NEB QID 05/16/18 Lactulose [Constulose 10 gm/15 mL Oral Solution] 30 ml PO BID 05/16/18 Levothyroxine Sodium [Synthroid] 137 mcg PO Q6AM 05/16/18 Linaclotide [Linzess] 290 mcg PO DAILY 05/16/18 Metformin HCl [Glucophage 500 mg Tablet] 500 mg PO BID 05/16/18 Oxycodone HCl/Acetaminophen [Percocet 5-325 mg Tablet] 1 tab PO BIDP PRN 05/16/18 Potassium Chloride [Klor-Con 10 Meq Capsule ER] 10 meq PO DAILY 05/16/18 Tamsulosin HCl [Flomax 0.4 mg Cap.sr] 0.4 mg PO DAILY 05/16/18 Tiotropium Lenora [Spiriva Handihaler 18 mcg/dose (30 Dose)] 1 cap IH DAILY 05/16/18 Amiodarone HCl [Cordarone 200 mg Tablet] 400 mg PO Q12 #120 tablet 05/21/18 Apixaban [Eliquis 2.5 mg Tablet] 2.5 mg PO BID #60 tablet 05/21/18 Atorvastatin Calcium [Lipitor 80 mg Tablet] 80 mg PO QHS 30 Days tablet 05/21/18 Clopidogrel Bisulfate [Plavix 75 mg Tablet] 75 mg PO DAILY #30 tablet 05/21/18 Furosemide [Lasix 40 mg Tablet] 40 mg PO DAILY #30 tablet 05/21/18 Hydralazine HCl [Apresoline 50 mg Tablet] 50 mg PO Q8 90 Days tablet 05/21/18 Metoprolol Succinate [Toprol Xl 50 mg Tab.sr] 50 mg PO Q12 #60 tab.sr.24h 05/21/18 Sacubitril/Valsartan [Entresto 24 mg/26 mg Tablet] 1 tab PO BID #60 tablet 05/21/18 Allergies/Adverse Reactions: levofloxacin [From Levaquin] Allergy (Unknown, Verified 05/16/18 07:52) uncertain fluticasone propionate [From Advair Diskus] Adverse Reaction (Severe, Verified 05/16/18 07:52) "Can't use my arms" salmeterol xinafoate [From Advair Diskus] Adverse Reaction (Severe, Verified 05/16/18 07:52) "Can't use my arms" varenicline tartrate [From Chantix] Adverse Reaction (Intermediate, Verified 05/16/18 07:52) Hallucinations Review of Systems Constitutional: PRESENT: as per HPI, anorexia, chills, fatigue, fever(s), night sweats, weakness, weight loss Eyes: ABSENT: visual disturbances Ears: ABSENT: hearing changes Cardiovascular: PRESENT: dyspnea on exertion, orthropnea. ABSENT: chest pain, palpitations Respiratory: PRESENT: as per HPI, cough, dyspnea, sputum. ABSENT: hemoptysis Gastrointestinal: PRESENT: constipation. ABSENT: abdominal pain, diarrhea, hematemesis, hematochezia, nausea, vomiting Genitourinary: ABSENT: dysuria, hematuria Musculoskeletal: ABSENT: joint swelling Integumentary: ABSENT: rash, wounds Neurological: ABSENT: abnormal gait, abnormal speech, confusion, dizziness, focal weakness, syncope Psychiatric: ABSENT: anxiety, depression, homidical ideation, suicidal ideation Endocrine: ABSENT: cold intolerance, heat intolerance, polydipsia, polyuria Hematologic/Lymphatic: ABSENT: easy bleeding, easy bruising Physical Exam Vital Signs: Temp Pulse Resp BP Pulse Ox 16 133/56 H 91 L 11/17/18 06:00 11/17/18 05:01 11/17/18 06:00 Intake & Output 11/15/18 11/16/18 11/17/18 11:59 11:59 11:59 Weight 93 kg Results Laboratory Results: 11/17/18 02:57 11/17/18 02:57 11/17/18 11/17/18 11/17/18 02:57 02:57 02:57 WBC 12.9 H RBC 4.17 L Hgb 11.6 L Hct 35.3 L MCV 85 MCH 27.9 MCHC 32.9 RDW 17.5 H Plt Count 327 Seg Neutrophils % 60.3 Lymphocytes % 12.3 L Monocytes % 8.4 Eosinophils % 18.5 H Basophils % 0.5 Absolute Neutrophils 7.8 Absolute Lymphocytes 1.6 Absolute Monocytes 1.1 Absolute Eosinophils 2.4 H Absolute Basophils 0.1 VBG pH 7.44 H VBG pCO2 53.4 VBG HCO3 35.6 H VBG Base Excess 9.8 Sodium 142.1 Potassium 3.7 Chloride 98 Carbon Dioxide 36 H Anion Gap 8 BUN 27 H Creatinine 1.73 H Est GFR ( Amer) 47 L Est GFR (Non-Af Amer) 39 L Glucose 163 H Calcium 8.9 Total Bilirubin 0.5 AST 259 H ALT 311 H Alkaline Phosphatase 142 H Total Protein 6.5 Albumin 3.1 L Impressions: Chest X-Ray 11/17/18 02:55 IMPRESSION: Small left lower lobar pneumonia/atelectasis. Recommend CR/CT surveillance including at 7-12 weeks following initiation of any clinically warranted therapy. Chest/Abdomen CTA 11/17/18 05:07 IMPRESSION: Cardiomegaly with no aortic dissection or aneurysm. No pulmonary embolus. Bilateral pneumonia with mediastinal adenopathy. Assessment & Plan - Diagnosis (1) Pneumonia Is this a current diagnosis for this admission?: Yes Plan: Complicated by URI with rhinorrhea, stage IV lung cancer, COPD. He received Flonase, incentive spirometry, empiric antibiotics and BiPAP support in addition to pneumonia care set. Follow-up blood culture and CBC (2) COPD exacerbation Is this a current diagnosis for this admission?: Yes Plan: Secondary to #1, supplemental oxygen, BiPAP, consider steroids (3) Squamous cell carcinoma of lung, stage IV Is this a current diagnosis for this admission?: Yes Plan: Patient declines intervention or oncology consult. Patient requests withdrawal from intubation if required greater than 72 hours. (4) Abnormal LFTs Is this a current diagnosis for this admission?: Yes Plan: Likely secondary to metastasis, avoid hepatotoxic meds and follow-up LFTs (5) Acute on chronic combined systolic and diastolic CHF (congestive heart failure) Is this a current diagnosis for this admission?: Yes Plan: Avoid fluid overload. (6) Atrial fibrillation with rapid ventricular response Is this a current diagnosis for this admission?: Yes Plan: Rate controlled with long QT, avoid QT prolonging agents - Time Time Spent: 50 to 70 Minutes - Inpatient Certification Medical Necessity: Need Close Monitoring Due to Risk of Patient Decompensation
[2018-11-17] MEDS ORDERED: LEVOTHYROXINE SODIUM 0.112 MG TABLET ONE (07:28)
[2018-11-17] MEDS: LEVOTHYROXINE SODIUM 0.025 MG TABLET PO SCH (07:33)
[2018-11-17] MEDS: LEVOTHYROXINE SODIUM 0.112 MG TABLET PO SCH (07:34)
[2018-11-17 07:36] LABS: CREATINE KINASE MB 3.17 ng/mL (<4.55); TROPONIN I 0.03 ng/mL
--- NOTE | 2018-11-17 08:54 | EKG REPORT ---
SEVERITY:- ABNORMAL ECG - SINUS RHYTHM FIRST DEGREE AV BLOCK PROBABLE LEFT ATRIAL ABNORMALITY PROBABLE INFERIOR INFARCT, OLD NONSPECIFIC T ABNORMALITIES, ANT-LAT LEADS PROLONGED QT INTERVAL : Confirmed by: Steve Galindo MD 17-Nov-2018 08:53:53
[2018-11-17] MEDS: AMIODARONE HCL 200 MG TABLET PO SCH ×2 (09:20→21:18)
[2018-11-17] MEDS: TAMSULOSIN HCL 0.4 MG CAP.SR.24H PO SCH (09:20)
[2018-11-17] MEDS: LACTULOSE SYRUP 20 GM/30 ML UDCUP PO SCH ×3 (09:20→17:23)
[2018-11-17] MEDS: CLONAZEPAM 1 MG TABLET PO SCH ×2 (09:21→21:22)
[2018-11-17] MEDS: CLOPIDOGREL BISULFATE 75 MG TABLET PO SCH (09:21)
[2018-11-17] MEDS: IPRATROPIUM/ALBUTEROL 0.5-2.5 MG/3 ML AMPUL NEB SCH ×2 (10:01→16:32)
[2018-11-17] MEDS: BUDESONIDE/FORMOTEROL 160-4.5 MCG 60 PUFF/6 GM MDI IH SCH ×2 (10:18→21:24)
[2018-11-17] MEDS ORDERED: DEXTROSE 50%-WATER SYRINGE 25 GM/50 ML DOSE IV PRN (11:30)
[2018-11-17] MEDS ORDERED: DEXTROSE 40% GEL 15 GM TUBE PO PRN (11:30)
[2018-11-17] MEDS ORDERED: DEXTROSE 50%-WATER SYRINGE 12.5 GM/25 ML DOSE IV PRN (11:30)
[2018-11-17] MEDS ORDERED: DEXTROSE 40% GEL 15 GM TUBE X 2 PO PRN (11:30)
[2018-11-17] MEDS ORDERED: GLUCAGON,HUMAN RECOMB 1 MG INJ IM PRN (11:30)
[2018-11-17 13:06] LABS: CREATINE KINASE MB 3.38 ng/mL (<4.55); TROPONIN I 0.026 ng/mL
[2018-11-17] MEDS: FLUTICASONE NASAL SPRAY 50 MCG/SPRY 120 SPRAY/16 GM NASL SCH (17:31)
[2018-11-17] MEDS: INSULIN LISPRO 100 UNIT/ML 3 ML VIAL SUBCUT SCH ×2 (17:31→21:22)
[2018-11-17 17:37] LABS: CREATINE KINASE MB 4.46 ng/mL (<4.55); TROPONIN I 0.026 ng/mL
[2018-11-17] MEDS: CEFEPIME 2 GM/D5W RTU 2 GM/50 ML RTUPB IV SCH (17:37)
[2018-11-17] MEDS: ATORVASTATIN CALCIUM 80 MG TABLET PO SCH (21:23)
[2018-11-18] MEDS: IPRATROPIUM/ALBUTEROL 0.5-2.5 MG/3 ML AMPUL NEB SCH ×3 (00:29→16:06)
[2018-11-18 05:37] LABS: ABSOLUTE EOSINOPHILS # (AUTO) 0.3 10^3/uL (0.0-0.6); ABSOLUTE LYMPHOCYTES (AUTO) 0.9 10^3/uL (0.5-4.7); ABSOLUTE NEUT (AUTO) 7.2 10^3/uL (1.7-8.2); BASOPHILS % (AUTO) 0.3 % (0-2); HEMATOCRIT 32.2 % (37.9-51.0); HEMOGLOBIN 10.7 g/dL (13.5-17.0); MEAN CORPUSCULAR HEMOGLOBIN 28.2 pg (27.0-33.4); MEAN CORPUSCULAR HGB CONC 33.3 g/dL (32.0-36.0); MEAN CORPUSCULAR VOLUME 85 fl (80-97); MONOCYTES % (AUTO) 10.5 % (3-13); PLATELET COUNT 275 10^3/uL (150-450); RED BLOOD COUNT 3.81 10^6/uL (4.35-5.55); SEGMENTED NEUTROPHILS % (AUTO) 76.2 % (42-78); TOTAL CELLS COUNTED % (AUTO) 100 %; WHITE BLOOD COUNT 9.5 10^3/uL (4.0-10.5)
[2018-11-18 05:59] LABS: ANION GAP 8 (5-19); BLOOD UREA NITROGEN 36 mg/dL (7-20); CALCIUM 7.9 mg/dL (8.4-10.2); CARBON DIOXIDE 33 mmol/L (22-30); CHLORIDE 97 mmol/L (98-107); GLUCOSE 119 mg/dL (75-110); POTASSIUM 3.7 mmol/L (3.6-5.0); SODIUM 138.2 mmol/L (137-145)
[2018-11-18] MEDS: FLUTICASONE NASAL SPRAY 50 MCG/SPRY 120 SPRAY/16 GM NASL SCH ×2 (06:22→17:35)
[2018-11-18] MEDS: LEVOTHYROXINE SODIUM 0.025 MG TABLET PO SCH (06:22)
[2018-11-18] MEDS: LEVOTHYROXINE SODIUM 0.112 MG TABLET PO SCH (06:22)
[2018-11-18] MEDS: HEPARIN SOD (PORCINE) 5,000 UNIT/ML 1 ML SYRINGE SUBCUT SCH ×3 (06:22→21:09)
[2018-11-18] MEDS: HYDRALAZINE HCL 50 MG TABLET PO SCH ×3 (06:23→21:09)
[2018-11-18] MEDS ORDERED: CEFEPIME 2 GM/D5W RTU 2 GM/50 ML RTUPB IV ONE (06:24)
[2018-11-18] MEDS: CEFEPIME 2 GM/D5W RTU 2 GM/50 ML RTUPB IV SCH ×2 (06:28→17:35)
[2018-11-18] MEDS: INSULIN LISPRO 100 UNIT/ML 3 ML VIAL SUBCUT SCH ×4 (09:03→21:08)
[2018-11-18] MEDS: CLOPIDOGREL BISULFATE 75 MG TABLET PO SCH (09:32)
[2018-11-18] MEDS: BUDESONIDE/FORMOTEROL 160-4.5 MCG 60 PUFF/6 GM MDI IH SCH ×2 (09:32→21:10)
[2018-11-18] MEDS: CLONAZEPAM 1 MG TABLET PO SCH ×2 (09:33→21:09)
[2018-11-18] MEDS: AMIODARONE HCL 200 MG TABLET PO SCH ×2 (09:33→21:09)
[2018-11-18] MEDS: TAMSULOSIN HCL 0.4 MG CAP.SR.24H PO SCH (09:33)
[2018-11-18] MEDS: LACTULOSE SYRUP 20 GM/30 ML UDCUP PO SCH ×2 (10:37→17:36)
--- NOTE | 2018-11-18 10:37 | PDOC PROGRESS REPORT ---
Subjective Progress Note for:: 11/18/18 Subjective:: Still dependent on BiPAP to keep normal SPO2. Oxygen nasal cannula. SPO2 97% 3 L FiO2 60% BiPAP. Stating that he is feeling better compared to yesterday. Denies any fever, chest pain, nausea, vomiting, diarrhea, constipation or any urinary symptoms. Reason For Visit: COPD CHF EXACERBATION BRONCHITIS Physical Exam Vital Signs: Temp Pulse Resp BP Pulse Ox 97.9 F 82 22 H 152/65 H 97 11/18/18 07:13 11/18/18 08:07 11/18/18 08:07 11/18/18 07:13 11/18/18 08:07 Intake & Output 11/17/18 11/18/18 11/19/18 06:59 06:59 06:59 Intake Total 240 1405 50 Balance 240 1405 50 Weight 93 kg 92.1 kg General appearance: PRESENT: mild distress Head exam: PRESENT: atraumatic, normocephalic Respiratory exam: PRESENT: clear to auscultation zay. ABSENT: rales, rhonchi, wheezes Cardiovascular exam: PRESENT: RRR. ABSENT: diastolic murmur, rubs, systolic murmur GI/Abdominal exam: PRESENT: normal bowel sounds, soft. ABSENT: distended, guarding, mass, organolmegaly, rebound, tenderness Extremities exam: PRESENT: full ROM. ABSENT: calf tenderness, clubbing, pedal edema Neurological exam: PRESENT: alert, awake, oriented to person, oriented to place, oriented to time, oriented to situation, CN II-XII grossly intact. ABSENT: motor sensory deficit Results Laboratory Results: 11/18/18 04:43 11/18/18 04:43 11/18/18 11/18/18 04:43 04:43 WBC 9.5 RBC 3.81 L Hgb 10.7 L Hct 32.2 L MCV 85 MCH 28.2 MCHC 33.3 RDW 17.0 H Plt Count 275 Seg Neutrophils % 76.2 Lymphocytes % 10.0 L Monocytes % 10.5 Eosinophils % 3.0 Basophils % 0.3 Absolute Neutrophils 7.2 Absolute Lymphocytes 0.9 Absolute Monocytes 1.0 Absolute Eosinophils 0.3 Absolute Basophils 0.0 Sodium 138.2 Potassium 3.7 Chloride 97 L Carbon Dioxide 33 H Anion Gap 8 BUN 36 H Creatinine 1.63 H Est GFR ( Amer) 51 L Est GFR (Non-Af Amer) 42 L Glucose 119 H Calcium 7.9 L 11/17/18 11/17/18 11/17/18 02:57 02:57 02:57 Creatine Kinase 70 CK-MB (CK-2) 3.17 Troponin I 0.030 NT-Pro-B Natriuret Pep 3040 H 11/17/18 11/17/18 11/17/18 12:00 12:00 16:55 Creatine Kinase 51 L 59 CK-MB (CK-2) 3.38 Troponin I 0.026 NT-Pro-B Natriuret Pep 11/17/18 16:55 Creatine Kinase CK-MB (CK-2) 4.46 Troponin I 0.026 NT-Pro-B Natriuret Pep Impressions: Chest X-Ray 11/17/18 02:55 IMPRESSION: Small left lower lobar pneumonia/atelectasis. Recommend CR/CT surveillance including at 7-12 weeks following initiation of any clinically warranted therapy. Chest/Abdomen CTA 11/17/18 05:07 IMPRESSION: Cardiomegaly with no aortic dissection or aneurysm. No pulmonary embolus. Bilateral pneumonia with mediastinal adenopathy. Assessment & Plan - Diagnosis (1) Pneumonia Is this a current diagnosis for this admission?: Yes Plan: Likely community-acquired URI, stage IV lung cancer, COPD. CBC on admission 12.9 no bandemia treating 89%. VBG pH 7.44. BNP 3040 up from 301 on 05/15/2018. Troponins 0.03, 0.026, 0.026. 11/17/2018 CTA bilateral pneumonia with mediastinal adenopathy. No PE. [place]. Continue broad-spectrum antibiotics. Cefepime day 2. No culture available prior to antibiotic therapy. Will obtain new blood cultures. (2) COPD exacerbation Is this a current diagnosis for this admission?: Yes Plan: Secondary to #1. Continue supplemental oxygen, as needed BiPAP, and nebs (3) Abnormal LFTs Is this a current diagnosis for this admission?: Yes Plan: Likely secondary to underlying metastasis. Avoid hepatotoxic meds. LFTs [place]. (4) Squamous cell carcinoma of lung, stage IV Is this a current diagnosis for this admission?: Yes Plan: Per H&P he has declined intervention or oncology consult. He has also mentioned on admission to withdraw intubation if he needs it more than 72 hours. 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 Monitor volume status, strict in and out, cardiac diet, restart home meds. 05/16/2018. 2D echo left ventricular ejection fraction 25%. Global hypokinesis, grade I/IV diastolic dysfunction. (6) Atrial fibrillation with rapid ventricular response Is this a current diagnosis for this admission?: Yes Plan: Rate controlled. Continue home meds.
[2018-11-18] MEDS ORDERED: METOPROLOL SUCCINATE 50 MG TAB.SR.24H PO ONE (14:00)
[2018-11-18] MEDS: FAMOTIDINE 20 MG TABLET PO SCH (14:39)
[2018-11-18] MEDS: ATORVASTATIN CALCIUM 80 MG TABLET PO SCH (21:09)
[2018-11-19] MEDS: IPRATROPIUM/ALBUTEROL 0.5-2.5 MG/3 ML AMPUL NEB SCH ×3 (00:08→16:32)
[2018-11-19] MEDS: FLUTICASONE NASAL SPRAY 50 MCG/SPRY 120 SPRAY/16 GM NASL SCH ×2 (05:30→17:14)
[2018-11-19] MEDS: CEFEPIME 2 GM/D5W RTU 2 GM/50 ML RTUPB IV SCH ×2 (05:30→17:15)
[2018-11-19] MEDS: HYDRALAZINE HCL 50 MG TABLET PO SCH ×3 (05:30→21:21)
[2018-11-19] MEDS: LEVOTHYROXINE SODIUM 0.025 MG TABLET PO SCH (05:30)
[2018-11-19] MEDS: LEVOTHYROXINE SODIUM 0.112 MG TABLET PO SCH (05:30)
[2018-11-19] MEDS: HEPARIN SOD (PORCINE) 5,000 UNIT/ML 1 ML SYRINGE SUBCUT SCH ×3 (05:30→21:22)
[2018-11-19 06:33] LABS: ABSOLUTE BASOPHILS # (AUTO) 0.1 10^3/uL (0.0-0.2); ABSOLUTE EOSINOPHILS # (AUTO) 1.4 10^3/uL (0.0-0.6); ABSOLUTE NEUT (AUTO) 4.9 10^3/uL (1.7-8.2); BASOPHILS % (AUTO) 0.8 % (0-2); TOTAL CELLS COUNTED % (AUTO) 100 %
[2018-11-19 06:44] LABS: ABSOLUTE MONOCYTES (AUTO) 0.7 10^3/uL (0.1-1.4); HEMATOCRIT 32.2 % (37.9-51.0); HEMOGLOBIN 10.8 g/dL (13.5-17.0); MEAN CORPUSCULAR HEMOGLOBIN 28.6 pg (27.0-33.4); MEAN CORPUSCULAR HGB CONC 33.5 g/dL (32.0-36.0); MEAN CORPUSCULAR VOLUME 85 fl (80-97); MONOCYTES % (AUTO) 9.3 % (3-13); PLATELET COUNT 297 10^3/uL (150-450); RED BLOOD COUNT 3.78 10^6/uL (4.35-5.55); SEGMENTED NEUTROPHILS % (AUTO) 60.7 % (42-78)
[2018-11-19 06:45] LABS: EOSINOPHILS % (AUTO) 17.2 % (0-6)
[2018-11-19 07:11] LABS: ALANINE AMINOTRANSFERASE 364 U/L (21-72); ALBUMIN 2.5 g/dL (3.5-5.0); ALKALINE PHOSPHATASE 120 U/L (38-126); ANION GAP 7 (5-19); ASPARTATE AMINO TRANSFERASE 301 U/L (17-59); BILIRUBIN,DIRECT 0.4 mg/dL (0.0-0.4); BILIRUBIN,TOTAL 0.4 mg/dL (0.2-1.3); BLOOD UREA NITROGEN 35 mg/dL (7-20); CALCIUM 8.4 mg/dL (8.4-10.2); CARBON DIOXIDE 33 mmol/L (22-30); CHLORIDE 99 mmol/L (98-107); GLUCOSE 104 mg/dL (75-110); POTASSIUM 3.9 mmol/L (3.6-5.0); SODIUM 139.2 mmol/L (137-145); TOTAL PROTEIN 5.6 g/dL (6.3-8.2)
[2018-11-19] MEDS: INSULIN LISPRO 100 UNIT/ML 3 ML VIAL SUBCUT SCH ×4 (07:57→21:22)
[2018-11-19] MEDS: CLONAZEPAM 1 MG TABLET PO SCH ×2 (09:23→21:20)
[2018-11-19] MEDS: AMIODARONE HCL 200 MG TABLET PO SCH ×2 (09:24→21:21)
[2018-11-19] MEDS: CLOPIDOGREL BISULFATE 75 MG TABLET PO SCH (09:24)
[2018-11-19] MEDS: TAMSULOSIN HCL 0.4 MG CAP.SR.24H PO SCH ×2 (09:24→09:26)
[2018-11-19] MEDS: METOPROLOL SUCCINATE 50 MG TAB.SR.24H PO SCH (09:24)
[2018-11-19] MEDS: FAMOTIDINE 20 MG TABLET PO SCH (09:25)
[2018-11-19] MEDS: LACTULOSE SYRUP 20 GM/30 ML UDCUP PO SCH ×2 (09:26→17:18)
[2018-11-19] MEDS: BUDESONIDE/FORMOTEROL 160-4.5 MCG 60 PUFF/6 GM MDI IH SCH ×2 (09:27→21:21)
[2018-11-19] MEDS: LUBIPROSTONE 24 MCG CAPSULE PO SCH (13:32)
--- NOTE | 2018-11-19 16:57 | PDOC PROGRESS REPORT ---
Subjective Progress Note for:: 11/19/18 Subjective:: Feeling better today. Running of dyspnea on exertion tolerating BiPAP. His home oxygen 2 L. P.o. tolerant, having normal bowel and bladder movements. Ambulatory. Denies any chest pain, nausea, vomiting, diarrhea, constipation, fever or any urinary symptoms. Reason For Visit: COPD CHF EXACERBATION BRONCHITIS Physical Exam Vital Signs: Temp Pulse Resp BP Pulse Ox 98.3 F 62 18 118/51 L 98 11/19/18 14:58 11/19/18 14:58 11/19/18 14:58 11/19/18 14:58 11/19/18 14:58 Intake & Output 11/18/18 11/19/18 11/20/18 06:59 06:59 06:59 Intake Total 1405 840 Balance 1405 840 Weight 92.1 kg 92.6 kg General appearance: PRESENT: no acute distress Head exam: PRESENT: atraumatic, normocephalic Neck exam: ABSENT: carotid bruit, JVD, lymphadenopathy, thyromegaly Respiratory exam: PRESENT: clear to auscultation zay. ABSENT: rales, rhonchi, wheezes Cardiovascular exam: PRESENT: RRR. ABSENT: diastolic murmur, rubs, systolic murmur GI/Abdominal exam: PRESENT: normal bowel sounds, soft. ABSENT: distended, guarding, mass, organolmegaly, rebound, tenderness Extremities exam: PRESENT: full ROM. ABSENT: calf tenderness, clubbing, pedal edema Neurological exam: PRESENT: alert, awake, oriented to person, oriented to place, oriented to time, oriented to situation, CN II-XII grossly intact. ABSENT: motor sensory deficit Skin exam: PRESENT: dry, intact, warm. ABSENT: cyanosis, rash Results Laboratory Results: 11/19/18 05:47 11/19/18 05:47 11/19/18 11/19/18 05:47 05:47 WBC 8.0 RBC 3.78 L Hgb 10.8 L Hct 32.2 L MCV 85 MCH 28.6 MCHC 33.5 RDW 17.0 H Plt Count 297 Seg Neutrophils % 60.7 Lymphocytes % 12.0 L Monocytes % 9.3 Eosinophils % 17.2 H D Basophils % 0.8 Absolute Neutrophils 4.9 Absolute Lymphocytes 1.0 Absolute Monocytes 0.7 Absolute Eosinophils 1.4 H Absolute Basophils 0.1 Sodium 139.2 Potassium 3.9 Chloride 99 Carbon Dioxide 33 H Anion Gap 7 BUN 35 H Creatinine 1.58 H Est GFR ( Amer) 53 L Est GFR (Non-Af Amer) 43 L Glucose 104 Calcium 8.4 Total Bilirubin 0.4 AST 301 H ALT 364 H Alkaline Phosphatase 120 Total Protein 5.6 L Albumin 2.5 L 11/18/18 16:20 Sputum Gram Stain - Final 11/18/18 16:20 Sputum Sputum Culture - Final 11/17/18 11/17/18 11/17/18 02:57 02:57 02:57 Creatine Kinase 70 CK-MB (CK-2) 3.17 Troponin I 0.030 NT-Pro-B Natriuret Pep 3040 H 11/17/18 11/17/18 11/17/18 12:00 12:00 16:55 Creatine Kinase 51 L 59 CK-MB (CK-2) 3.38 Troponin I 0.026 NT-Pro-B Natriuret Pep 11/17/18 16:55 Creatine Kinase CK-MB (CK-2) 4.46 Troponin I 0.026 NT-Pro-B Natriuret Pep Impressions: Chest X-Ray 11/17/18 02:55 IMPRESSION: Small left lower lobar pneumonia/atelectasis. Recommend CR/CT surveillance including at 7-12 weeks following initiation of any clinically warranted therapy. Chest/Abdomen CTA 11/17/18 05:07 IMPRESSION: Cardiomegaly with no aortic dissection or aneurysm. No pulmonary embolus. Bilateral pneumonia with mediastinal adenopathy. Assessment & Plan - Diagnosis (1) Pneumonia Is this a current diagnosis for this admission?: Yes Plan: Improving. WBC 8.0 no bandemia. Saturating 96-100% on 4-5 L NC to 40% RR 17- 18\ Likely community-acquired URI, stage IV lung cancer, COPD. On admission CBC on admission 12.9 no bandemia, saturating 89%. VBG pH 7.44. BNP 3040 up from 301 on 05/15/2018. Troponins 0.03, 0.026, 0.026. 11/17/2018 CTA bilateral pneumonia with mediastinal adenopathy. No PE. Cultures no growth, cefepime day 3. No culture available prior to antibiotic therapy. (2) COPD exacerbation Is this a current diagnosis for this admission?: Yes Plan: Secondary to #1. Continue supplemental oxygen, as needed BiPAP, and nebs (3) Abnormal LFTs Is this a current diagnosis for this admission?: Yes Plan: Likely secondary to underlying metastasis. Avoid hepatotoxic meds. LFTs tomorrow. (4) Squamous cell carcinoma of lung, stage IV Is this a current diagnosis for this admission?: Yes Plan: Per H&P he has declined intervention or oncology consult. He has also mentioned on admission to withdraw intubation if he needs it more than 72 hours. 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 Monitor volume status, strict in and out, cardiac diet, restart home meds. 05/16/2018. 2D echo left ventricular ejection fraction 25%. Global hypokinesis, grade I/IV diastolic dysfunction. (6) Atrial fibrillation with rapid ventricular response Is this a current diagnosis for this admission?: Yes Plan: Rate controlled. Continue home meds.
[2018-11-19] MEDS: ATORVASTATIN CALCIUM 80 MG TABLET PO SCH (21:20)
[2018-11-20] MEDS: IPRATROPIUM/ALBUTEROL 0.5-2.5 MG/3 ML AMPUL NEB SCH ×3 (00:18→16:25)
[2018-11-20] MEDS: HYDRALAZINE HCL 50 MG TABLET PO SCH ×3 (05:28→21:24)
[2018-11-20] MEDS: HEPARIN SOD (PORCINE) 5,000 UNIT/ML 1 ML SYRINGE SUBCUT SCH ×3 (05:28→21:27)
[2018-11-20] MEDS: CEFEPIME 2 GM/D5W RTU 2 GM/50 ML RTUPB IV SCH ×2 (05:28→17:16)
[2018-11-20] MEDS: FLUTICASONE NASAL SPRAY 50 MCG/SPRY 120 SPRAY/16 GM NASL SCH ×2 (05:28→17:16)
[2018-11-20] MEDS: LEVOTHYROXINE SODIUM 0.112 MG TABLET PO SCH (05:28)
[2018-11-20] MEDS: LEVOTHYROXINE SODIUM 0.025 MG TABLET PO SCH (05:28)
[2018-11-20 06:52] LABS: ABSOLUTE EOSINOPHILS # (AUTO) 1.2 10^3/uL (0.0-0.6); ABSOLUTE LYMPHOCYTES (AUTO) 0.9 10^3/uL (0.5-4.7); ABSOLUTE MONOCYTES (AUTO) 0.7 10^3/uL (0.1-1.4); ABSOLUTE NEUT (AUTO) 4.1 10^3/uL (1.7-8.2); BASOPHILS % (AUTO) 0.5 % (0-2); EOSINOPHILS % (AUTO) 17.6 % (0-6); HEMOGLOBIN 10.3 g/dL (13.5-17.0); LYMPHOCYTES % (AUTO) 12.5 % (13-45); MEAN CORPUSCULAR HGB CONC 33.3 g/dL (32.0-36.0); MEAN CORPUSCULAR VOLUME 87 fl (80-97); MONOCYTES % (AUTO) 10.4 % (3-13); PLATELET COUNT 261 10^3/uL (150-450); RED BLOOD COUNT 3.56 10^6/uL (4.35-5.55); RED CELL DISTRIBUTION WIDTH 16.4 % (11.5-14.0); TOTAL CELLS COUNTED % (AUTO) 100 %
[2018-11-20 06:59] LABS: ALANINE AMINOTRANSFERASE 358 U/L (21-72); ALBUMIN 2.4 g/dL (3.5-5.0); ALKALINE PHOSPHATASE 110 U/L (38-126); ANION GAP 6 (5-19); ASPARTATE AMINO TRANSFERASE 277 U/L (17-59); BILIRUBIN,DIRECT 0.4 mg/dL (0.0-0.4); BILIRUBIN,TOTAL 0.5 mg/dL (0.2-1.3); BLOOD UREA NITROGEN 28 mg/dL (7-20); CALCIUM 8.2 mg/dL (8.4-10.2); CARBON DIOXIDE 32 mmol/L (22-30); CHLORIDE 99 mmol/L (98-107); GLUCOSE 108 mg/dL (75-110); POTASSIUM 3.9 mmol/L (3.6-5.0); SODIUM 136.8 mmol/L (137-145); TOTAL PROTEIN 5.4 g/dL (6.3-8.2)
[2018-11-20] MEDS: INSULIN LISPRO 100 UNIT/ML 3 ML VIAL SUBCUT SCH ×4 (09:00→22:29)
[2018-11-20] MEDS: LACTULOSE SYRUP 20 GM/30 ML UDCUP PO SCH ×2 (09:00→17:16)
[2018-11-20] MEDS: FAMOTIDINE 20 MG TABLET PO SCH (09:02)
[2018-11-20] MEDS: CLOPIDOGREL BISULFATE 75 MG TABLET PO SCH (09:03)
[2018-11-20] MEDS: TAMSULOSIN HCL 0.4 MG CAP.SR.24H PO SCH (09:03)
[2018-11-20] MEDS: AMIODARONE HCL 200 MG TABLET PO SCH ×2 (09:03→21:24)
[2018-11-20] MEDS: METOPROLOL SUCCINATE 50 MG TAB.SR.24H PO SCH (09:03)
[2018-11-20] MEDS: BUDESONIDE/FORMOTEROL 160-4.5 MCG 60 PUFF/6 GM MDI IH SCH ×2 (09:04→22:50)
[2018-11-20] MEDS: LUBIPROSTONE 24 MCG CAPSULE PO SCH (09:04)
[2018-11-20] MEDS: CLONAZEPAM 1 MG TABLET PO SCH ×2 (09:04→21:24)
--- NOTE | 2018-11-20 14:05 | PDOC PROGRESS REPORT ---
Subjective Progress Note for:: 11/20/18 Subjective:: Feeling better today. Complaining of dyspnea on exertion tolerating BiPAP. P.o. tolerant, having normal bowel and bladder movements. Ambulatory Denies any chest pain, nausea, vomiting, diarrhea, constipation, fever or any urinary symptoms. Reason For Visit: COPD CHF EXACERBATION BRONCHITIS Physical Exam Vital Signs: Temp Pulse Resp BP Pulse Ox 97.5 F 61 14 143/63 H 96 11/20/18 12:00 11/20/18 12:00 11/20/18 12:07 11/20/18 12:00 11/20/18 12:07 Intake & Output 11/19/18 11/20/18 11/21/18 06:59 06:59 06:59 Intake Total 840 950 Balance 840 950 Weight 92.6 kg 93.4 kg General appearance: PRESENT: no acute distress, well-developed, well-nourished Head exam: PRESENT: atraumatic, normocephalic Respiratory exam: PRESENT: clear to auscultation zay. ABSENT: rales, rhonchi, wheezes Cardiovascular exam: PRESENT: RRR. ABSENT: diastolic murmur, rubs, systolic murmur GI/Abdominal exam: PRESENT: normal bowel sounds, soft. ABSENT: distended, guarding, mass, organolmegaly, rebound, tenderness Extremities exam: PRESENT: full ROM. ABSENT: calf tenderness, clubbing, pedal edema Neurological exam: PRESENT: alert, awake, oriented to person, oriented to place, oriented to time, oriented to situation, CN II-XII grossly intact. ABSENT: motor sensory deficit Results Laboratory Results: 11/20/18 05:58 11/20/18 05:58 11/20/18 11/20/18 05:58 05:58 WBC 7.0 RBC 3.56 L Hgb 10.3 L Hct 31.0 L MCV 87 MCH 29.0 MCHC 33.3 RDW 16.4 H Plt Count 261 Seg Neutrophils % 59.0 Lymphocytes % 12.5 L Monocytes % 10.4 Eosinophils % 17.6 H Basophils % 0.5 Absolute Neutrophils 4.1 Absolute Lymphocytes 0.9 Absolute Monocytes 0.7 Absolute Eosinophils 1.2 H Absolute Basophils 0.0 Sodium 136.8 L Potassium 3.9 Chloride 99 Carbon Dioxide 32 H Anion Gap 6 BUN 28 H Creatinine 1.47 H Est GFR ( Amer) 57 L Est GFR (Non-Af Amer) 47 L Glucose 108 Calcium 8.2 L Magnesium 2.4 H Total Bilirubin 0.5 AST 277 H ALT 358 H Alkaline Phosphatase 110 Total Protein 5.4 L Albumin 2.4 L 11/18/18 16:20 Sputum Gram Stain - Final 11/18/18 16:20 Sputum Sputum Culture - Final 11/17/18 11/17/18 11/17/18 02:57 02:57 02:57 Creatine Kinase 70 CK-MB (CK-2) 3.17 Troponin I 0.030 NT-Pro-B Natriuret Pep 3040 H 11/17/18 11/17/18 11/17/18 12:00 12:00 16:55 Creatine Kinase 51 L 59 CK-MB (CK-2) 3.38 Troponin I 0.026 NT-Pro-B Natriuret Pep 11/17/18 16:55 Creatine Kinase CK-MB (CK-2) 4.46 Troponin I 0.026 NT-Pro-B Natriuret Pep Impressions: Chest X-Ray 11/17/18 02:55 IMPRESSION: Small left lower lobar pneumonia/atelectasis. Recommend CR/CT surveillance including at 7-12 weeks following initiation of any clinically warranted therapy. Chest/Abdomen CTA 11/17/18 05:07 IMPRESSION: Cardiomegaly with no aortic dissection or aneurysm. No pulmonary embolus. Bilateral pneumonia with mediastinal adenopathy. Assessment & Plan - Diagnosis (1) Pneumonia Is this a current diagnosis for this admission?: Yes Plan: Improving. O2 sat 96% 5 L, FiO2 50% Likely community-acquired URI, stage IV lung cancer, COPD. On admission CBC on admission 12.9 no bandemia, saturating 89%. VBG pH 7.44. BNP 3040 up from 301 on 05/15/2018. Troponins 0.03, 0.026, 0.026. 11/17/2018 CTA bilateral pneumonia with mediastinal adenopathy. No PE. Cultures no growth, cefepime day 4. No culture available prior to antibiotic therapy. (2) COPD exacerbation Is this a current diagnosis for this admission?: Yes Plan: Secondary to #1. Continue supplemental oxygen, as needed BiPAP, and nebs (3) Abnormal LFTs Is this a current diagnosis for this admission?: Yes Plan: Likely secondary to underlying metastasis. Avoid hepatotoxic meds. LFTs tomorrow. (4) Squamous cell carcinoma of lung, stage IV Is this a current diagnosis for this admission?: Yes Plan: Per H&P he has declined intervention or oncology consult. He has also mentioned on admission to withdraw intubation if he needs it more than 72 hours. 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 Monitor volume status, strict in and out, cardiac diet, restart home meds. 05/16/2018. 2D echo left ventricular ejection fraction 25%. Global hypokinesis, grade I/IV diastolic dysfunction. (6) Atrial fibrillation with rapid ventricular response Is this a current diagnosis for this admission?: Yes Plan: Rate controlled. Continue home meds. (7) BPH (benign prostatic hyperplasia) Is this a current diagnosis for this admission?: No Plan: Restart home meds. (8) Constipation Is this a current diagnosis for this admission?: Yes Plan: Start home meds. (9) Diabetes mellitus Is this a current diagnosis for this admission?: No Plan: Controlled. Diabetic, sliding scale insulin, adjust meds as needed. (10) Acute kidney injury superimposed on CKD Is this a current diagnosis for this admission?: Yes Plan: Improving. Electrolytes within normal limits. Monitor volume status and electrolytes and replace as needed. Baseline creatinine 1.83, creatinine on admission 1.73. Today creatinine 1.47. (11) Coronary artery disease Qualifiers: Coronary Disease-Associated Artery/Lesion type: [place] artery [place] vs. transplanted heart: [place] heart Associated angina: angina presence unspecified Qualified Code(s): I25.10 - Atherosclerotic heart disease of [place] coronary artery without angina pectoris Is this a current diagnosis for this admission?: Yes Plan: Continue antiplatelets, beta blockers, statins. May benefit from EHSAN/ARB unfortunately he has CHRIS on CKD which needs further evaluation and follow-up with nephrology. Outpatient cardiology follow-up
[2018-11-20] MEDS: ATORVASTATIN CALCIUM 80 MG TABLET PO SCH (21:24)
[2018-11-20] MEDS: METHYLPREDNISOLONE INJ 40 MG/1 ML SDV IV SCH (21:27)
[2018-11-21] MEDS: IPRATROPIUM/ALBUTEROL 0.5-2.5 MG/3 ML AMPUL NEB SCH ×3 (00:31→16:25)
[2018-11-21] MEDS: LEVOTHYROXINE SODIUM 0.112 MG TABLET PO SCH (06:06)
[2018-11-21] MEDS: METHYLPREDNISOLONE INJ 40 MG/1 ML SDV IV SCH ×3 (06:06→21:25)
[2018-11-21] MEDS: HYDRALAZINE HCL 50 MG TABLET PO SCH ×3 (06:06→21:25)
[2018-11-21] MEDS: HEPARIN SOD (PORCINE) 5,000 UNIT/ML 1 ML SYRINGE SUBCUT SCH ×3 (06:07→21:23)
[2018-11-21] MEDS: FLUTICASONE NASAL SPRAY 50 MCG/SPRY 120 SPRAY/16 GM NASL SCH ×2 (06:07→18:08)
[2018-11-21] MEDS: LEVOTHYROXINE SODIUM 0.025 MG TABLET PO SCH (06:12)
[2018-11-21] MEDS: CEFEPIME 2 GM/D5W RTU 2 GM/50 ML RTUPB IV SCH ×2 (06:12→18:19)
[2018-11-21] MEDS: BUDESONIDE/FORMOTEROL 160-4.5 MCG 60 PUFF/6 GM MDI IH SCH ×2 (11:14→21:29)
[2018-11-21] MEDS: LUBIPROSTONE 24 MCG CAPSULE PO SCH (11:15)
[2018-11-21] MEDS: TAMSULOSIN HCL 0.4 MG CAP.SR.24H PO SCH (11:16)
[2018-11-21] MEDS: CLOPIDOGREL BISULFATE 75 MG TABLET PO SCH (11:16)
[2018-11-21] MEDS: FAMOTIDINE 20 MG TABLET PO SCH (11:16)
[2018-11-21] MEDS: CLONAZEPAM 1 MG TABLET PO SCH ×2 (11:16→21:25)
[2018-11-21] MEDS: AMIODARONE HCL 200 MG TABLET PO SCH ×2 (11:16→21:25)
[2018-11-21] MEDS: INSULIN LISPRO 100 UNIT/ML 3 ML VIAL SUBCUT SCH ×4 (11:18→21:45)
[2018-11-21] MEDS: LACTULOSE SYRUP 20 GM/30 ML UDCUP PO SCH ×2 (11:19→18:06)
[2018-11-21] MEDS: METOPROLOL SUCCINATE 50 MG TAB.SR.24H PO SCH (11:20)
--- NOTE | 2018-11-21 17:04 | PDOC PROGRESS REPORT ---
Subjective Progress Note for:: 11/21/18 Subjective:: No acute events overnight. No significant changes compared to yesterday. Patient has been dependent on BiPAP. SPO2 96-98% on 5 L, FiO2 50%. RR 13-22. Complaining of dyspnea on exertion tolerating BiPAP. P.o. tolerant, having normal bowel and bladder movements. Denies any chest pain, nausea, vomiting, diarrhea, constipation, fever or any urinary symptoms. Reason For Visit: COPD CHF EXACERBATION BRONCHITIS Physical Exam Vital Signs: Temp Pulse Resp BP Pulse Ox 97.9 F 67 22 H 148/55 H 96 11/21/18 15:11 11/21/18 15:11 11/21/18 15:11 11/21/18 15:11 11/21/18 15:11 Intake & Output 11/20/18 11/21/18 11/22/18 06:59 06:59 06:59 Intake Total 950 50 641 Balance 950 50 641 Weight 93.4 kg 92.3 kg General appearance: PRESENT: mild distress, well-developed, well-nourished Head exam: PRESENT: atraumatic, normocephalic Respiratory exam: PRESENT: accessory muscle use, clear to auscultation zay, decreased breath sounds. ABSENT: rales, rhonchi, wheezes Cardiovascular exam: PRESENT: RRR. ABSENT: diastolic murmur, rubs, systolic murmur GI/Abdominal exam: PRESENT: normal bowel sounds, soft. ABSENT: distended, guarding, mass, organolmegaly, rebound, tenderness Extremities exam: PRESENT: full ROM. ABSENT: calf tenderness, clubbing, pedal edema Results Laboratory Results: 11/20/18 05:58 11/20/18 05:58 11/17/18 11/17/18 11/17/18 02:57 02:57 02:57 Creatine Kinase 70 CK-MB (CK-2) 3.17 Troponin I 0.030 NT-Pro-B Natriuret Pep 3040 H 11/17/18 11/17/18 11/17/18 12:00 12:00 16:55 Creatine Kinase 51 L 59 CK-MB (CK-2) 3.38 Troponin I 0.026 NT-Pro-B Natriuret Pep 11/17/18 16:55 Creatine Kinase CK-MB (CK-2) 4.46 Troponin I 0.026 NT-Pro-B Natriuret Pep Impressions: Chest X-Ray 11/17/18 02:55 IMPRESSION: Small left lower lobar pneumonia/atelectasis. Recommend CR/CT surveillance including at 7-12 weeks following initiation of any clinically warranted therapy. Chest/Abdomen CTA 11/17/18 05:07 IMPRESSION: Cardiomegaly with no aortic dissection or aneurysm. No pulmonary embolus. Bilateral pneumonia with mediastinal adenopathy. Assessment & Plan - Diagnosis (1) Pneumonia Is this a current diagnosis for this admission?: Yes Plan: No significant changes. O2 sat 96% 5 L, FiO2 50% Likely community-acquired URI on stage IV lung cancer, COPD. On admission CBC on admission 12.9 no bandemia, saturating 89%. VBG pH 7.44. WBC within normal limits. No bandemia. BNP 3040 up from 301 on 05/15/2018. Troponins 0.03, 0.026, 0.026. 11/17/2018 CTA bilateral pneumonia with mediastinal adenopathy. No PE. Cultures no growth, cefepime day 5. No culture available prior to antibiotic therapy. (2) COPD exacerbation Is this a current diagnosis for this admission?: Yes Plan: Secondary to #1. Continue supplemental oxygen, as needed BiPAP, and nebs (3) Abnormal LFTs Is this a current diagnosis for this admission?: Yes Plan: Likely secondary to underlying metastasis. Avoid hepatotoxic meds. LFTs tomorrow. (4) Squamous cell carcinoma of lung, stage IV Is this a current diagnosis for this admission?: Yes Plan: Per H&P he has declined intervention or oncology consult. He has also mentioned on admission to withdraw intubation if he needs it more than 72 hours. Palliative care has been consulted. 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 BNP 3040 up from 301 on 05/15/2018. Status post CABG on 09/2019 at [facility]. Monitor volume status, strict in and out, cardiac diet, restart home meds. Echo prior to CABG 05/16/2018. 2D echo left ventricular ejection fraction 25%. G lobal hypokinesis, grade I/IV diastolic dysfunction. We will obtain echo. (6) Atrial fibrillation with rapid ventricular response Is this a current diagnosis for this admission?: Yes Plan: Rate controlled. Continue home meds. (7) BPH (benign prostatic hyperplasia) Is this a current diagnosis for this admission?: No Plan: Restart home meds. (8) Constipation Is this a current diagnosis for this admission?: Yes Plan: Start home meds. (9) Diabetes mellitus Is this a current diagnosis for this admission?: No Plan: Controlled. Diabetic, sliding scale insulin, adjust meds as needed. (10) Acute kidney injury superimposed on CKD Is this a current diagnosis for this admission?: Yes Plan: Improving. Electrolytes within normal limits. Monitor volume status and electrolytes and replace as needed. Baseline creatinine 1.83, creatinine on admission 1.73. Today creatinine 1.47. (11) Coronary artery disease Qualifiers: Coronary Disease-Associated Artery/Lesion type: [place] artery [place] vs. tr ansplanted heart: [place] heart Associated angina: angina presence unspecified Qualified Code(s): I25.10 - Atherosclerotic heart disease of [place] coronary artery without angina pectoris Is this a current diagnosis for this admission?: Yes Plan: Status post CABG 09/2019 [place]. Continue antiplatelets, beta blockers, statins. May benefit from EHSAN/ARB unfortunately he has CHRIS on CKD which needs further evaluation and follow-up with nephrology. Outpatient cardiology follow-up
[2018-11-21] MEDS: ATORVASTATIN CALCIUM 80 MG TABLET PO SCH (21:25)
[2018-11-22] MEDS: IPRATROPIUM/ALBUTEROL 0.5-2.5 MG/3 ML AMPUL NEB SCH ×3 (00:48→16:19)
[2018-11-22] MEDS: LEVOTHYROXINE SODIUM 0.025 MG TABLET PO SCH (06:23)
[2018-11-22] MEDS: CEFEPIME 2 GM/D5W RTU 2 GM/50 ML RTUPB IV SCH ×2 (06:23→18:05)
[2018-11-22] MEDS: LEVOTHYROXINE SODIUM 0.112 MG TABLET PO SCH (06:23)
[2018-11-22] MEDS: METHYLPREDNISOLONE INJ 40 MG/1 ML SDV IV SCH ×3 (06:24→21:32)
[2018-11-22] MEDS: FLUTICASONE NASAL SPRAY 50 MCG/SPRY 120 SPRAY/16 GM NASL SCH ×2 (06:24→18:05)
[2018-11-22] MEDS: HYDRALAZINE HCL 50 MG TABLET PO SCH ×3 (06:24→21:31)
[2018-11-22] MEDS: HEPARIN SOD (PORCINE) 5,000 UNIT/ML 1 ML SYRINGE SUBCUT SCH ×3 (06:29→21:30)
[2018-11-22] MEDS: GUAIFENESIN SYRP 200 MG/10 ML UDC PO PRN (06:29)
[2018-11-22 06:55] LABS: ABSOLUTE LYMPHOCYTES (AUTO) 0.6 10^3/uL (0.5-4.7); ABSOLUTE MONOCYTES (AUTO) 0.7 10^3/uL (0.1-1.4); ABSOLUTE NEUT (AUTO) 7.7 10^3/uL (1.7-8.2); BASOPHILS % (AUTO) 0.1 % (0-2); HEMATOCRIT 31.4 % (37.9-51.0); HEMOGLOBIN 10.5 g/dL (13.5-17.0); LYMPHOCYTES % (AUTO) 6.3 % (13-45); MEAN CORPUSCULAR HEMOGLOBIN 28.7 pg (27.0-33.4); MEAN CORPUSCULAR HGB CONC 33.4 g/dL (32.0-36.0); MEAN CORPUSCULAR VOLUME 86 fl (80-97); MONOCYTES % (AUTO) 7.4 % (3-13); PLATELET COUNT 243 10^3/uL (150-450); RED BLOOD COUNT 3.66 10^6/uL (4.35-5.55); RED CELL DISTRIBUTION WIDTH 16.7 % (11.5-14.0); SEGMENTED NEUTROPHILS % (AUTO) 86.2 % (42-78); TOTAL CELLS COUNTED % (AUTO) 100 %
[2018-11-22 07:22] LABS: ALANINE AMINOTRANSFERASE 419 U/L (21-72); ALBUMIN 2.6 g/dL (3.5-5.0); ALKALINE PHOSPHATASE 118 U/L (38-126); ANION GAP 6 (5-19); ASPARTATE AMINO TRANSFERASE 288 U/L (17-59); BILIRUBIN,DIRECT 0.2 mg/dL (0.0-0.4); BILIRUBIN,TOTAL 0.4 mg/dL (0.2-1.3); BLOOD UREA NITROGEN 34 mg/dL (7-20); CALCIUM 8.6 mg/dL (8.4-10.2); CARBON DIOXIDE 30 mmol/L (22-30); CHLORIDE 99 mmol/L (98-107); GLUCOSE 167 mg/dL (75-110); POTASSIUM 4.6 mmol/L (3.6-5.0); SODIUM 135.3 mmol/L (137-145); TOTAL PROTEIN 5.6 g/dL (6.3-8.2)
[2018-11-22] MEDS: INSULIN LISPRO 100 UNIT/ML 3 ML VIAL SUBCUT SCH ×4 (09:37→22:40)
[2018-11-22] MEDS: CLONAZEPAM 1 MG TABLET PO SCH ×2 (09:40→21:31)
[2018-11-22] MEDS: TAMSULOSIN HCL 0.4 MG CAP.SR.24H PO SCH (09:40)
[2018-11-22] MEDS: FAMOTIDINE 20 MG TABLET PO SCH (09:41)
[2018-11-22] MEDS: CLOPIDOGREL BISULFATE 75 MG TABLET PO SCH (09:42)
[2018-11-22] MEDS: LACTULOSE SYRUP 20 GM/30 ML UDCUP PO SCH ×2 (09:43→18:10)
[2018-11-22] MEDS: LUBIPROSTONE 24 MCG CAPSULE PO SCH (09:43)
[2018-11-22] MEDS: METOPROLOL SUCCINATE 50 MG TAB.SR.24H PO SCH (09:43)
[2018-11-22] MEDS: BUDESONIDE/FORMOTEROL 160-4.5 MCG 60 PUFF/6 GM MDI IH SCH ×2 (09:44→21:30)
[2018-11-22] MEDS ORDERED: AMLODIPINE BESYLATE 5 MG TABLET PO SCH (10:00)
[2018-11-22] MEDS: AMIODARONE HCL 200 MG TABLET PO SCH ×2 (11:14→21:31)
[2018-11-22] MEDS: OXYCODONE-ACETAMINOPHEN 5-325 MG TABLET PO PRN (11:15)
[2018-11-22] MEDS ORDERED: HYDRALAZINE HCL INJ/PF 20 MG/1 ML SDV IV PRN (18:08)
--- NOTE | 2018-11-22 18:39 | PDOC PROGRESS REPORT ---
Subjective Progress Note for:: 11/22/18 Subjective:: No acute events overnight. Mild improvement significant changes compared to yesterday. Has not been to dependent on BiPAP. Been on BiPAP only last night. SPO2 96-98% on 5 L, FiO2 40%. RR 13-22. Complaining of dyspnea on exertion tolerating BiPAP. P.o. tolerant, having normal bowel and bladder movements. Denies any chest pain, nausea, vomiting, diarrhea, constipation, fever or any urinary symptoms. Reason For Visit: COPD CHF EXACERBATION BRONCHITIS Physical Exam Vital Signs: Temp Pulse Resp BP Pulse Ox 98.6 F 62 22 H 151/69 H 97 11/22/18 15:50 11/22/18 15:50 11/22/18 15:50 11/22/18 15:50 11/22/18 15:50 Intake & Output 11/21/18 11/22/18 11/23/18 06:59 06:59 06:59 Intake Total 50 1168 850 Balance 50 1168 850 Weight 92.3 kg 92.3 kg General appearance: PRESENT: no acute distress, well-developed, well-nourished Head exam: PRESENT: atraumatic, normocephalic Respiratory exam: PRESENT: clear to auscultation zay, decreased breath sounds, prolonged expiratory phas, wheezes - Left upper lobe. ABSENT: rales, rhonchi Cardiovascular exam: PRESENT: RRR. ABSENT: diastolic murmur, rubs, systolic murmur GI/Abdominal exam: PRESENT: normal bowel sounds, soft. ABSENT: distended, guarding, mass, organolmegaly, rebound, tenderness Neurological exam: PRESENT: alert, awake, oriented to person, oriented to place, oriented to time, oriented to situation, CN II-XII grossly intact. ABSENT: motor sensory deficit Results Laboratory Results: 11/22/18 06:05 11/22/18 06:05 11/22/18 11/22/18 06:05 06:05 WBC 9.0 RBC 3.66 L Hgb 10.5 L Hct 31.4 L MCV 86 MCH 28.7 MCHC 33.4 RDW 16.7 H Plt Count 243 Seg Neutrophils % 86.2 H Lymphocytes % 6.3 L Monocytes % 7.4 Eosinophils % 0.0 Basophils % 0.1 Absolute Neutrophils 7.7 Absolute Lymphocytes 0.6 Absolute Monocytes 0.7 Absolute Eosinophils 0.0 Absolute Basophils 0.0 Sodium 135.3 L Potassium 4.6 Chloride 99 Carbon Dioxide 30 Anion Gap 6 BUN 34 H Creatinine 1.57 H Est GFR ( Amer) 53 L Est GFR (Non-Af Amer) 44 L Glucose 167 H Calcium 8.6 Magnesium 2.5 H Total Bilirubin 0.4 AST 288 H ALT 419 H Alkaline Phosphatase 118 Total Protein 5.6 L Albumin 2.6 L 11/17/18 11/17/18 11/17/18 02:57 02:57 02:57 Creatine Kinase 70 CK-MB (CK-2) 3.17 Troponin I 0.030 NT-Pro-B Natriuret Pep 3040 H 11/17/18 11/17/18 11/17/18 12:00 12:00 16:55 Creatine Kinase 51 L 59 CK-MB (CK-2) 3.38 Troponin I 0.026 NT-Pro-B Natriuret Pep 11/17/18 16:55 Creatine Kinase CK-MB (CK-2) 4.46 Troponin I 0.026 NT-Pro-B Natriuret Pep Impressions: Chest X-Ray 11/17/18 02:55 IMPRESSION: Small left lower lobar pneumonia/atelectasis. Recommend CR/CT surveillance including at 7-12 weeks following initiation of any clinically warranted therapy. Chest/Abdomen CTA 11/17/18 05:07 IMPRESSION: Cardiomegaly with no aortic dissection or aneurysm. No pulmonary embolus. Bilateral pneumonia with mediastinal adenopathy. Assessment & Plan - Diagnosis (1) Pneumonia Is this a current diagnosis for this admission?: Yes Plan: Mild improvement. O2 sat 96% 5 L, FiO2 40% Likely community-acquired URI on stage IV lung cancer, COPD. On admission CBC on admission 12.9 no bandemia, saturating 89%. VBG pH 7.44. WBC within normal limits. No bandemia. BNP 3040 up from 301 on 05/15/2018. Troponins 0.03, 0.026, 0.026. 11/17/2018 CTA bilateral pneumonia with mediastinal adenopathy. No PE. Cultures no growth, cefepime day 6. No culture available prior to antibiotic therapy. (2) COPD exacerbation Is this a current diagnosis for this admission?: Yes Plan: Secondary to #1. Continue supplemental oxygen, as needed BiPAP, and nebs (3) Abnormal LFTs Is this a current diagnosis for this admission?: Yes Plan: Likely secondary to underlying metastasis. Avoid hepatotoxic meds. LFTs tomorrow. (4) Squamous cell carcinoma of lung, stage IV Is this a current diagnosis for this admission?: Yes Plan: Per H&P he has declined intervention or oncology consult. He has also mentioned on admission to withdraw intubation if he needs it more than 72 hours. Palliative care has been consulted. 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 BNP 3040 up from 301 on 05/15/2018. Status post CABG on 09/2019 at [facility]. Monitor volume status, strict in and out, cardiac diet, restart home meds. Echo prior to CABG 05/16/2018. 2D echo left ventricular ejection fraction 25%. Global hypokinesis, grade I/IV diastolic dysfunction. We will obtain echo. (6) Atrial fibrillation with rapid ventricular response Is this a current diagnosis for this admission?: Yes Plan: Rate controlled. Continue home meds. (7) BPH (benign prostatic hyperplasia) Is this a current diagnosis for this admission?: No Plan: Restart home meds. (8) Constipation Is this a current diagnosis for this admission?: Yes Plan: Start home meds. (9) Diabetes mellitus Is this a current diagnosis for this admission?: No Plan: Controlled. Diabetic, sliding scale insulin, adjust meds as needed. (10) Acute kidney injury superimposed on CKD Is this a current diagnosis for this admission?: Yes Plan: Improving. Electrolytes within normal limits. Monitor volume status and electrolytes and replace as needed. Baseline creatinine 1.83, creatinine on admission 1.73. Today creatinine 1.47. (11) Coronary artery disease Qualifiers: Coronary Disease-Associated Artery/Lesion type: [place] artery [place] vs. transplanted heart: [place] heart Associated angina: angina presence unspecified Qualified Code(s): I25.10 - Atherosclerotic heart disease of [place] coronary artery without angina pectoris Is this a current diagnosis for this admission?: Yes Plan: Status post CABG 09/2019 [place]. Continue antiplatelets, beta blockers, statins. May benefit from EHSAN/ARB unfortunately he has CHRIS on CKD which needs further evaluation and follow-up with nephrology. Outpatient cardiology follow-up
[2018-11-22] MEDS: ATORVASTATIN CALCIUM 80 MG TABLET PO SCH (21:31)
[2018-11-23] MEDS: IPRATROPIUM/ALBUTEROL 0.5-2.5 MG/3 ML AMPUL NEB SCH ×3 (00:34→15:41)
[2018-11-23] MEDS: LEVOTHYROXINE SODIUM 0.112 MG TABLET PO SCH (05:40)
[2018-11-23] MEDS: CEFEPIME 2 GM/D5W RTU 2 GM/50 ML RTUPB IV SCH ×2 (05:40→17:19)
[2018-11-23] MEDS: FLUTICASONE NASAL SPRAY 50 MCG/SPRY 120 SPRAY/16 GM NASL SCH ×2 (05:40→17:20)
[2018-11-23] MEDS: HEPARIN SOD (PORCINE) 5,000 UNIT/ML 1 ML SYRINGE SUBCUT SCH ×3 (05:40→21:12)
[2018-11-23] MEDS: LEVOTHYROXINE SODIUM 0.025 MG TABLET PO SCH (05:40)
[2018-11-23] MEDS: HYDRALAZINE HCL 50 MG TABLET PO SCH ×3 (05:41→21:17)
[2018-11-23] MEDS: METHYLPREDNISOLONE INJ 40 MG/1 ML SDV IV SCH ×3 (05:42→21:11)
[2018-11-23 07:06] LABS: ARTERIAL BLOOD BASE EXCESS 4.7 mmol/L; ARTERIAL BLOOD H2CO3 1.49 mmol/L (1.05-1.35); ARTERIAL BLOOD HCO3 30.3 mmol/L (20-24); ARTERIAL BLOOD O2 SATURATION 98.6 % (94-98); ARTERIAL BLOOD PCO2 49.5 mmHg (35-45); ARTERIAL BLOOD PO2 132.8 mmHg (80-100); ARTERIAL BLOOD TOTAL CO2 31.8 mmol/L (23-27)
[2018-11-23 07:22] LABS: HEMATOCRIT 31.3 % (37.9-51.0); HEMOGLOBIN 10.7 g/dL (13.5-17.0); MEAN CORPUSCULAR HEMOGLOBIN 29.8 pg (27.0-33.4); MEAN CORPUSCULAR HGB CONC 34.1 g/dL (32.0-36.0); MEAN CORPUSCULAR VOLUME 87 fl (80-97); PLATELET COUNT 271 10^3/uL (150-450); RED BLOOD COUNT 3.58 10^6/uL (4.35-5.55); RED CELL DISTRIBUTION WIDTH 17.2 % (11.5-14.0); WHITE BLOOD COUNT 9.7 10^3/uL (4.0-10.5)
[2018-11-23 07:23] LABS: ARTERIAL BLOOD FIO2 40%
[2018-11-23 07:47] LABS: ALANINE AMINOTRANSFERASE 466 U/L (21-72); ALBUMIN 2.7 g/dL (3.5-5.0); ALKALINE PHOSPHATASE 132 U/L (38-126); ANION GAP 6 (5-19); ASPARTATE AMINO TRANSFERASE 299 U/L (17-59); BILIRUBIN,DIRECT 0.4 mg/dL (0.0-0.4); BILIRUBIN,TOTAL 0.4 mg/dL (0.2-1.3); BLOOD UREA NITROGEN 40 mg/dL (7-20); CALCIUM 8.5 mg/dL (8.4-10.2); CARBON DIOXIDE 28 mmol/L (22-30); CHLORIDE 102 mmol/L (98-107); GLUCOSE 176 mg/dL (75-110); POTASSIUM 4.5 mmol/L (3.6-5.0); TOTAL PROTEIN 5.8 g/dL (6.3-8.2)
[2018-11-23 08:22] LABS: ABSOLUTE LYMPHOCYTES# (MANUAL) 0.1 10^3/uL (0.5-4.7); ABSOLUTE MONOCYTES # (MANUAL) 0.5 10^3/uL (0.1-1.4); ABSOLUTE NEUTROPHILS# (MANUAL) 9.1 10^3/uL (1.7-8.2); BASOPHILS % (MANUAL) 0 % (0-2); EOSINOPHILS % (MANUAL) 0 % (0-6); LYMPHOCYTES % (MANUAL) 1 % (13-45); MONOCYTES % (MANUAL) 5 % (3-13); SEGMENTED NEUTROPHILS % (MAN) 94 % (42-78); TOTAL CELLS COUNTED 100
[2018-11-23 08:23] LABS: ANISOCYTOSIS 1+; OVALOCYTES SLIGHT; PLATELET COMMENT ADEQUATE; POIKILOCYTOSIS 1+; SCHISTOCYTES SLIGHT; TOXIC GRANULATION 1+
[2018-11-23] MEDS: INSULIN LISPRO 100 UNIT/ML 3 ML VIAL SUBCUT SCH ×4 (08:28→21:11)
[2018-11-23] MEDS ORDERED: DIAZEPAM 5 MG TABLET PO PRN (09:23)
[2018-11-23] MEDS: LACTULOSE SYRUP 20 GM/30 ML UDCUP PO SCH ×2 (09:38→17:11)
[2018-11-23] MEDS: LUBIPROSTONE 24 MCG CAPSULE PO SCH (09:38)
[2018-11-23] MEDS: AMIODARONE HCL 200 MG TABLET PO SCH ×2 (09:38→21:21)
[2018-11-23] MEDS: TAMSULOSIN HCL 0.4 MG CAP.SR.24H PO SCH (09:38)
[2018-11-23] MEDS: AMLODIPINE BESYLATE 5 MG TABLET PO SCH (09:39)
[2018-11-23] MEDS: CLOPIDOGREL BISULFATE 75 MG TABLET PO SCH (09:39)
[2018-11-23] MEDS: CLONAZEPAM 1 MG TABLET PO SCH ×2 (09:39→21:11)
[2018-11-23] MEDS: METOPROLOL SUCCINATE 50 MG TAB.SR.24H PO SCH (09:39)
[2018-11-23] MEDS: FAMOTIDINE 20 MG TABLET PO SCH (09:39)
[2018-11-23] MEDS: BUDESONIDE/FORMOTEROL 160-4.5 MCG 60 PUFF/6 GM MDI IH SCH ×2 (09:43→21:21)
--- NOTE | 2018-11-23 12:31 | PDOC PROGRESS REPORT ---
Subjective Progress Note for:: 11/23/18 Subjective:: No acute events overnight. Mild improvement significant changes compared to yesterday. Has not been to dependent on BiPAP. Been on BiPAP only last night. SPO2 96-98% on 5 L, FiO2 40%. RR 13-22. Complaining of dyspnea on exertion tolerating BiPAP. P.o. tolerant, having normal bowel and bladder movements. Denies any chest pain, nausea, vomiting, diarrhea, constipation, fever or any urinary symptoms. Reason For Visit: COPD CHF EXACERBATION BRONCHITIS Physical Exam Vital Signs: Temp Pulse Resp BP Pulse Ox 97.9 F 71 21 H 156/84 H 97 11/23/18 11:27 11/23/18 11:27 11/23/18 12:21 11/23/18 11:27 11/23/18 12:21 Intake & Output 11/22/18 11/23/18 11/24/18 06:59 06:59 06:59 Intake Total 1168 1050 Balance 1168 1050 Weight 92.3 kg General appearance: PRESENT: no acute distress, well-developed, well-nourished Head exam: PRESENT: atraumatic, normocephalic Respiratory exam: PRESENT: clear to auscultation zay. ABSENT: rales, rhonchi, wheezes GI/Abdominal exam: PRESENT: normal bowel sounds, soft. ABSENT: distended, guarding, mass, organolmegaly, rebound, tenderness Extremities exam: PRESENT: full ROM. ABSENT: calf tenderness, clubbing, pedal edema Neurological exam: PRESENT: alert, awake, oriented to person, oriented to place, oriented to time, oriented to situation, CN II-XII grossly intact. ABSENT: motor sensory deficit Results Laboratory Results: 11/23/18 06:06 11/23/18 06:06 11/23/18 11/23/18 11/23/18 06:06 06:06 06:30 WBC 9.7 RBC 3.58 L Hgb 10.7 L Hct 31.3 L MCV 87 MCH 29.8 MCHC 34.1 RDW 17.2 H Plt Count 271 Seg Neutrophils % Not Reportable Lymphocytes % Not Reportable Monocytes % Not Reportable Eosinophils % Not Reportable Basophils % Not Reportable Absolute Neutrophils Not Reportable Absolute Lymphocytes Not Reportable Absolute Monocytes Not Reportable Absolute Eosinophils Not Reportable Absolute Basophils Not Reportable Carbonic Acid 1.49 H HCO3/H2CO3 Ratio 20:1 ABG pH 7.40 ABG pCO2 49.5 H ABG pO2 132.8 H ABG HCO3 30.3 H ABG O2 Saturation 98.6 H ABG Base Excess 4.7 FiO2 40% Sodium 136.0 L Potassium 4.5 Chloride 102 Carbon Dioxide 28 Anion Gap 6 BUN 40 H Creatinine 1.53 H Est GFR ( Amer) 55 L Est GFR (Non-Af Amer) 45 L Glucose 176 H Calcium 8.5 Magnesium 2.5 H Total Bilirubin 0.4 AST 299 H ALT 466 H Alkaline Phosphatase 132 H Total Protein 5.8 L Albumin 2.7 L 11/17/18 11/17/18 11/17/18 02:57 02:57 02:57 Creatine Kinase 70 CK-MB (CK-2) 3.17 Troponin I 0.030 NT-Pro-B Natriuret Pep 3040 H 11/17/18 11/17/18 11/17/18 12:00 12:00 16:55 Creatine Kinase 51 L 59 CK-MB (CK-2) 3.38 Troponin I 0.026 NT-Pro-B Natriuret Pep 11/17/18 16:55 Creatine Kinase CK-MB (CK-2) 4.46 Troponin I 0.026 NT-Pro-B Natriuret Pep Impressions: Chest X-Ray 11/17/18 02:55 IMPRESSION: Small left lower lobar pneumonia/atelectasis. Recommend CR/CT surveillance including at 7-12 weeks following initiation of any clinically warranted therapy. Chest/Abdomen CTA 11/17/18 05:07 IMPRESSION: Cardiomegaly with no aortic dissection or aneurysm. No pulmonary embolus. Bilateral pneumonia with mediastinal adenopathy. Assessment & Plan - Diagnosis (1) Pneumonia Is this a current diagnosis for this admission?: Yes Plan: Mild improvement. O2 sat 96% 5 L, FiO2 40% Likely community-acquired URI on stage IV lung cancer, COPD. On admission CBC on admission 12.9 no bandemia, saturating 89%. VBG pH 7.44. WBC within normal limits. No bandemia. BNP 3040 up from 301 on 05/15/2018. Troponins 0.03, 0.026, 0.026. 11/17/2018 CTA bilateral pneumonia with mediastinal adenopathy. No PE. Cultures no growth, cefepime day 7. No culture available prior to antibiotic therapy. (2) COPD exacerbation Is this a current diagnosis for this admission?: Yes Plan: Secondary to #1. Continue supplemental oxygen, nebs, IV steroids, BiPAP. (3) Abnormal LFTs Is this a current diagnosis for this admission?: Yes Plan: Likely secondary to underlying metastasis. Avoid hepatotoxic meds. LFTs tomorrow. (4) Squamous cell carcinoma of lung, stage IV Is this a current diagnosis for this admission?: Yes Plan: Per H&P he has declined intervention or oncology consult. He has also mentioned on admission to withdraw intubation if he needs it more than 72 hours. Palliative care has been consulted but as per patient he was told that he is not a candidate at this point. 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 BNP 3040 up from 301 on 05/15/2018. Status post CABG on 09/2019 at [facility] [place]. Monitor volume status, strict in and out, cardiac diet, restart home meds. Echo prior to CABG 05/16/2018. 2D echo left ventricular ejection fraction 25%. Global hypokinesis, grade I/IV diastolic dysfunction. Repeat 2D echo pending (6) Atrial fibrillation with rapid ventricular response Is this a current diagnosis for this admission?: Yes Plan: Rate controlled. Continue home meds. (7) BPH (benign prostatic hyperplasia) Is this a current diagnosis for this admission?: No Plan: Restart home meds. (8) Constipation Is this a current diagnosis for this admission?: Yes Plan: Start home meds. (9) Diabetes mellitus Is this a current diagnosis for this admission?: No Plan: Controlled. Diabetic, sliding scale insulin, adjust meds as needed. (10) Acute kidney injury superimposed on CKD Is this a current diagnosis for this admission?: Yes Plan: Improving. Electrolytes within normal limits. Monitor volume status and electrolytes and replace as needed. Baseline creatinine 1.83, creatinine on admission 1.73. (11) Coronary artery disease Qualifiers: Coronary Disease-Associated Artery/Lesion type: [place] artery [place] vs. transplanted heart: [place] heart Associated angina: angina presence unspecified Qualified Code(s): I25.10 - Atherosclerotic heart disease of [place] coronary artery without angina pectoris Is this a current diagnosis for this admission?: Yes Plan: Status post CABG 09/2019 [place]. Continue antiplatelets, beta blockers, statins. May benefit from EHSAN/ARB unfortunately he has CHRIS on CKD which needs further evaluation and follow-up with nephrology. Outpatient cardiology follow-up (12) Anxiety Is this a current diagnosis for this admission?: No Plan: Restart home meds. Monitor for respiratory depression.
[2018-11-23] MEDS: OXYCODONE-ACETAMINOPHEN 5-325 MG TABLET PO PRN (14:29)
[2018-11-23] MEDS: ATORVASTATIN CALCIUM 80 MG TABLET PO SCH (21:10)
[2018-11-23] MEDS ORDERED: MAGNESIUM CITRATE 296 ML BOTTLE PO ONE (22:30)
--- NOTE | 2018-11-23 22:31 | XCELERA REPORT ---
[address] [address] Transthoracic Echocardiogram Report Name: BETSY VINES V Age: 72 yrs Gender: Male : 1945 Patient Status: Inpatient Patient Location: [address] [place] [address] Study Date: 11/22/2018 10:23 AM Height: 74 in Weight: 203 lb BSA: 2.2 m2 Procedure: A two-dimensional transthoracic echocardiogram with color flow and Doppler was performed. The study was technically difficult with many images being suboptimal in quality. Reason For Study: CHF Exacerbation History: CHF. Ordering Physician: BRADY CAMARGO Performed By: Samir Herrera Interpretation Summary The left ventricle is normal in size. There is normal left ventricular wall thickness. The left ventricular ejection fraction is within normal limits. LV EF is > than 60% The left ventricular wall motion is normal. The right ventricle is not well visualized secondary to technical limitations The left atrium is moderately dilated. There is no evidence of mitral valve prolapse. There is no vegetation seen on the mitral valve. There is no mitral valve stenosis. There is no mitral regurgitation noted. There is no aortic valvular vegetation. There is no aortic valve stenosis There is no LVOT obstruction. There is aortic sclerosis without aortic stenosis. No aortic regurgitation is present. There is no tricuspid stenosis. There is a trace amount of tricuspid regurgitation Unable to calculate RVSP due lack of TR jet. There is no pulmonic valvular stenosis. There is no pulmonic valvular regurgitation. There is no pericardial effusion. MMode/2D Measurements & Calculations RVDd: 3.7 cm LVIDd: 5.5 cm FS: 42.5 % Ao root diam: 3.4 cm IVSd: 0.80 cm LVIDs: 3.2 cm EDV(Teich): 147.1 ml Ao root area: 9.0 cm2 LVPWd: 0.98 cm ESV(Teich): 39.8 ml LA dimension: 4.8 cm EF(Teich): 73.0 % Doppler Measurements & Calculations MV E max elliot: MV P1/2t max elliot: Ao V2 max: LV V1 max P.3 cm/sec 94.7 cm/sec 130.9 cm/sec 5.4 mmHg MV A max elliot: MV P1/2t: 77.1 msec Ao max PG: LV V1 max: 87.9 cm/sec MVA(P1/2t): 2.9 cm2 6.8 mmHg 115.7 cm/sec MV E/A: 1.1 MV dec slope: 360.1 cm/sec2 MV dec time: 0.21 sec PA V2 max: MV P1/2t-pr_phl: 92.3 cm/sec 77.1 msec PA max P.4 mmHg Left Ventricle The left ventricle is normal in size. There is normal left ventricular wall thickness. The left ventricular ejection fraction is within normal limits. LV EF is > than 60%. Doppler measurements suggest normal left ventricular diastolic function. The left ventricular wall motion is normal. Right Ventricle The right ventricle is not well visualized secondary to technical limitations. Atria Right atrium not well visualized secondary to technical limitations. The left atrium is moderately dilated. The interatrial septum is intact with no evidence for an atrial septal defect. Mitral Valve There is mild mitral annular calcification. There is no evidence of mitral valve prolapse. There is no vegetation seen on the mitral valve. There is no mitral valve stenosis. There is no mitral regurgitation noted. Aortic Valve There is no aortic valvular vegetation. There is no aortic valve stenosis. There is no LVOT obstruction. There is aortic sclerosis without aortic stenosis. No aortic regurgitation is present. Tricuspid Valve There is no tricuspid stenosis. There is a trace amount of tricuspid regurgitation. Unable to calculate RVSP due lack of TR jet. Pulmonic Valve There is no pulmonic valvular stenosis. There is no pulmonic valvular regurgitation. Great Vessels The aortic root is not well visualized. Effusions There is no pericardial effusion. : BRADY CAMARGO > Harmony Dennis
[2018-11-24] MEDS: IPRATROPIUM/ALBUTEROL 0.5-2.5 MG/3 ML AMPUL NEB SCH ×4 (00:28→21:51)
[2018-11-24] MEDS: OXYCODONE-ACETAMINOPHEN 5-325 MG TABLET PO PRN ×3 (04:18→19:19)
[2018-11-24] MEDS: HYDRALAZINE HCL 50 MG TABLET PO SCH ×3 (06:03→21:50)
[2018-11-24] MEDS: FLUTICASONE NASAL SPRAY 50 MCG/SPRY 120 SPRAY/16 GM NASL SCH (06:03)
[2018-11-24] MEDS: HEPARIN SOD (PORCINE) 5,000 UNIT/ML 1 ML SYRINGE SUBCUT SCH ×3 (06:03→21:45)
[2018-11-24] MEDS: METHYLPREDNISOLONE INJ 40 MG/1 ML SDV IV SCH ×3 (06:05→21:44)
[2018-11-24] MEDS: CEFEPIME 2 GM/D5W RTU 2 GM/50 ML RTUPB IV SCH ×3 (06:05→21:50)
[2018-11-24] MEDS: LEVOTHYROXINE SODIUM 0.112 MG TABLET PO SCH (06:05)
[2018-11-24] MEDS: LEVOTHYROXINE SODIUM 0.025 MG TABLET PO SCH (06:05)
[2018-11-24] MEDS ORDERED: ALBUTEROL SULFATE 0.083% NEB 2.5 MG/3 ML AMPUL NEB PRN (09:34)
[2018-11-24] MEDS: INSULIN LISPRO 100 UNIT/ML 3 ML VIAL SUBCUT SCH ×4 (09:36→21:49)
[2018-11-24] MEDS: CLONAZEPAM 1 MG TABLET PO SCH (09:36)
[2018-11-24] MEDS: FAMOTIDINE 20 MG TABLET PO SCH (09:37)
[2018-11-24] MEDS: METOPROLOL SUCCINATE 50 MG TAB.SR.24H PO SCH (09:37)
[2018-11-24] MEDS: TAMSULOSIN HCL 0.4 MG CAP.SR.24H PO SCH (09:37)
[2018-11-24] MEDS: AMLODIPINE BESYLATE 5 MG TABLET PO SCH (09:38)
[2018-11-24] MEDS: AMIODARONE HCL 200 MG TABLET PO SCH ×2 (09:38→21:55)
[2018-11-24] MEDS: CLOPIDOGREL BISULFATE 75 MG TABLET PO SCH (09:38)
[2018-11-24] MEDS: LUBIPROSTONE 24 MCG CAPSULE PO SCH (09:39)
[2018-11-24] MEDS: BUDESONIDE/FORMOTEROL 160-4.5 MCG 60 PUFF/6 GM MDI IH SCH ×2 (09:39→21:44)
[2018-11-24] MEDS: LACTULOSE SYRUP 20 GM/30 ML UDCUP PO SCH ×2 (09:39→17:06)
[2018-11-24] MEDS ORDERED: FUROSEMIDE 40 MG TABLET PO PRN (09:48)
[2018-11-24] MEDS ORDERED: MAG HYDROX/AL HYDROX/SIMETH SUSP 30 ML UDCUP PO PRN (09:57)
[2018-11-24] MEDS ORDERED: CLOPIDOGREL BISULFATE 75 MG TABLET PO SCH (10:00)
[2018-11-24] MEDS ORDERED: BUDESONIDE/FORMOTEROL 160-4.5 MCG 60 PUFF/6 GM MDI IH SCH (10:00)
[2018-11-24] MEDS ORDERED: (PENDING PHARMACY ID) (Tiotropium Bromide [Spiriva Respimat] 2 PUFF) IH SCH (10:00)
[2018-11-24] MEDS: FUROSEMIDE 40 MG TABLET PO SCH ×2 (10:58→17:05)
[2018-11-24] MEDS: ASPIRIN 81 MG TABLET, CHEWABLE PO SCH (10:58)
[2018-11-24] MEDS: FINASTERIDE 5 MG TABLET PO SCH (10:59)
[2018-11-24] MEDS: LINZESS 290 MCG PO SCH (11:00)
--- NOTE | 2018-11-24 13:19 | PDOC PROGRESS REPORT ---
Subjective Progress Note for:: 11/24/18 Subjective:: No acute events overnight. Complaining of anxiety, dyspnea on exertion but overall better than yesterday He is saturating 99% on FiO2 of 35% and every 6 BiPAP. Denies any chest pain, nausea, vomiting, diarrhea, constipation or any urinary symptoms. Reason For Visit: COPD CHF EXACERBATION BRONCHITIS Physical Exam Vital Signs: Temp Pulse Resp BP Pulse Ox 97.5 F 65 20 160/70 H 99 11/24/18 12:00 11/24/18 12:00 11/24/18 12:00 11/24/18 12:00 11/24/18 12:00 Intake & Output 11/23/18 11/24/18 11/25/18 06:59 06:59 06:59 Intake Total 1050 930 Balance 1050 930 General appearance: PRESENT: mild distress Head exam: PRESENT: atraumatic, normocephalic Respiratory exam: PRESENT: decreased breath sounds, prolonged expiratory phas. ABSENT: rales, rhonchi, wheezes Cardiovascular exam: PRESENT: RRR. ABSENT: diastolic murmur, rubs, systolic murmur GI/Abdominal exam: PRESENT: normal bowel sounds, soft. ABSENT: distended, guarding, mass, organolmegaly, rebound, tenderness Extremities exam: PRESENT: full ROM. ABSENT: calf tenderness, clubbing, pedal edema Neurological exam: PRESENT: alert, awake, oriented to person, oriented to place, oriented to time, oriented to situation, CN II-XII grossly intact. ABSENT: motor sensory deficit Results Laboratory Results: 11/23/18 06:06 11/23/18 06:06 11/18/18 16:35 Blood Blood Culture - Final NO GROWTH IN 5 DAYS 11/18/18 16:15 Blood Blood Culture - Final NO GROWTH IN 5 DAYS 11/17/18 11/17/18 11/17/18 02:57 02:57 02:57 Creatine Kinase 70 CK-MB (CK-2) 3.17 Troponin I 0.030 NT-Pro-B Natriuret Pep 3040 H 11/17/18 11/17/18 11/17/18 12:00 12:00 16:55 Creatine Kinase 51 L 59 CK-MB (CK-2) 3.38 Troponin I 0.026 NT-Pro-B Natriuret Pep 11/17/18 16:55 Creatine Kinase CK-MB (CK-2) 4.46 Troponin I 0.026 NT-Pro-B Natriuret Pep Impressions: Chest X-Ray 11/17/18 02:55 IMPRESSION: Small left lower lobar pneumonia/atelectasis. Recommend CR/CT surveillance including at 7-12 weeks following initiation of any clinically warranted therapy. Chest/Abdomen CTA 11/17/18 05:07 IMPRESSION: Cardiomegaly with no aortic dissection or aneurysm. No pulmonary embolus. Bilateral pneumonia with mediastinal adenopathy. Assessment & Plan - Diagnosis (1) Pneumonia Is this a current diagnosis for this admission?: Yes Plan: Mild improvement. O2 sat 96% 2 L, FiO2 4.5% Likely community-acquired URI on stage IV lung cancer, COPD. On admission CBC on admission 12.9 no bandemia, saturating 89%. VBG pH 7.44. WBC within normal limits. No bandemia. BNP 3040 up from 301 on 05/15/2018. Troponins 0.03, 0.026, 0.026. 11/17/2018 CTA bilateral pneumonia with mediastinal adenopathy. No PE. Cultures no growth, cefepime day 8. No culture available prior to antibiotic therapy. (2) COPD exacerbation Is this a current diagnosis for this admission?: Yes (3) Abnormal LFTs Is this a current diagnosis for this admission?: Yes (4) Squamous cell carcinoma of lung, stage IV Is this a current diagnosis for this admission?: Yes (5) Acute combined systolic and diastolic heart failure Is this a current diagnosis for this admission?: Yes (6) Atrial fibrillation with rapid ventricular response Is this a current diagnosis for this admission?: Yes (7) BPH (benign prostatic hyperplasia) Is this a current diagnosis for this admission?: No (8) Constipation Is this a current diagnosis for this admission?: Yes (9) Diabetes mellitus Is this a current diagnosis for this admission?: No (10) Acute kidney injury superimposed on CKD Is this a current diagnosis for this admission?: Yes (11) Coronary artery disease Qualifiers: Coronary Disease-Associated Artery/Lesion type: [place] artery [place] vs. transplanted heart: [place] heart Associated angina: angina presence unspecified Qualified Code(s): I25.10 - Atherosclerotic heart disease of [place] coronary artery without angina pectoris Is this a current diagnosis for this admission?: Yes
[2018-11-24] MEDS ORDERED: HYDRALAZINE HCL 50 MG TABLET PO SCH (14:00)
[2018-11-24] MEDS: DIAZEPAM 5 MG TABLET PO PRN (17:33)
[2018-11-24] MEDS: ATORVASTATIN CALCIUM 80 MG TABLET PO SCH (21:50)
[2018-11-25] MEDS: IPRATROPIUM/ALBUTEROL 0.5-2.5 MG/3 ML AMPUL NEB SCH ×4 (02:03→20:38)
[2018-11-25] MEDS: HYDRALAZINE HCL 50 MG TABLET PO SCH ×3 (06:24→21:44)
[2018-11-25] MEDS: LEVOTHYROXINE SODIUM 0.025 MG TABLET PO SCH (06:25)
[2018-11-25] MEDS: LEVOTHYROXINE SODIUM 0.112 MG TABLET PO SCH (06:25)
[2018-11-25] MEDS: METHYLPREDNISOLONE INJ 40 MG/1 ML SDV IV SCH ×3 (06:26→21:47)
[2018-11-25] MEDS: HEPARIN SOD (PORCINE) 5,000 UNIT/ML 1 ML SYRINGE SUBCUT SCH ×3 (06:27→21:45)
[2018-11-25 06:41] LABS: ARTERIAL BLOOD BASE EXCESS 3.5 mmol/L; ARTERIAL BLOOD H2CO3 1.54 mmol/L (1.05-1.35); ARTERIAL BLOOD HCO3 29.5 mmol/L (20-24); ARTERIAL BLOOD O2 SATURATION 95.7 % (94-98); ARTERIAL BLOOD PCO2 51.3 mmHg (35-45); ARTERIAL BLOOD PH 7.38 (7.35-7.45); ARTERIAL BLOOD PO2 81.9 mmHg (80-100)
[2018-11-25 06:42] LABS: ARTERIAL BLOOD FIO2 30%
[2018-11-25 06:47] LABS: HEMATOCRIT 32.1 % (37.9-51.0); HEMOGLOBIN 10.8 g/dL (13.5-17.0); MEAN CORPUSCULAR HEMOGLOBIN 29.3 pg (27.0-33.4); MEAN CORPUSCULAR HGB CONC 33.8 g/dL (32.0-36.0); MEAN CORPUSCULAR VOLUME 87 fl (80-97); PLATELET COUNT 193 10^3/uL (150-450); RED CELL DISTRIBUTION WIDTH 17.1 % (11.5-14.0); WHITE BLOOD COUNT 6.3 10^3/uL (4.0-10.5)
[2018-11-25 07:11] LABS: ALANINE AMINOTRANSFERASE 615 U/L (21-72); ALBUMIN 2.8 g/dL (3.5-5.0); ALKALINE PHOSPHATASE 136 U/L (38-126); ANION GAP 7 (5-19); ASPARTATE AMINO TRANSFERASE 405 U/L (17-59); BILIRUBIN,DIRECT 0.3 mg/dL (0.0-0.4); BILIRUBIN,TOTAL 0.4 mg/dL (0.2-1.3); BLOOD UREA NITROGEN 49 mg/dL (7-20); CALCIUM 8.5 mg/dL (8.4-10.2); CARBON DIOXIDE 31 mmol/L (22-30); CHLORIDE 99 mmol/L (98-107); GLUCOSE 251 mg/dL (75-110); POTASSIUM 4.7 mmol/L (3.6-5.0); TOTAL PROTEIN 5.7 g/dL (6.3-8.2)
[2018-11-25 07:41] LABS: ABSOLUTE LYMPHOCYTES# (MANUAL) 0.4 10^3/uL (0.5-4.7); ABSOLUTE MONOCYTES # (MANUAL) 0.3 10^3/uL (0.1-1.4); ABSOLUTE NEUTROPHILS# (MANUAL) 5.6 10^3/uL (1.7-8.2); BASOPHILS % (MANUAL) 0 % (0-2); EOSINOPHILS % (MANUAL) 0 % (0-6); LYMPHOCYTES % (MANUAL) 6 % (13-45); MONOCYTES % (MANUAL) 5 % (3-13); SEGMENTED NEUTROPHILS % (MAN) 89 % (42-78); TOTAL CELLS COUNTED 100
[2018-11-25 07:42] LABS: ANISOCYTOSIS 1+; BURR CELLS SLIGHT; OVALOCYTES 1+; PLATELET COMMENT ADEQUATE; POIKILOCYTOSIS 1+; SCHISTOCYTES 1+
[2018-11-25] MEDS: DIAZEPAM 5 MG TABLET PO PRN (08:20)
[2018-11-25] MEDS: INSULIN LISPRO 100 UNIT/ML 3 ML VIAL SUBCUT SCH ×4 (08:20→21:46)
[2018-11-25] MEDS: OXYCODONE-ACETAMINOPHEN 5-325 MG TABLET PO PRN ×3 (08:20→17:22)
[2018-11-25] MEDS: CEFEPIME 2 GM/D5W RTU 2 GM/50 ML RTUPB IV SCH ×2 (08:59→21:47)
[2018-11-25] MEDS: METOPROLOL SUCCINATE 50 MG TAB.SR.24H PO SCH (09:00)
[2018-11-25] MEDS: FAMOTIDINE 20 MG TABLET PO SCH (09:00)
[2018-11-25] MEDS: FINASTERIDE 5 MG TABLET PO SCH (09:00)
[2018-11-25] MEDS: ASPIRIN 81 MG TABLET, CHEWABLE PO SCH (09:00)
[2018-11-25] MEDS: FUROSEMIDE 40 MG TABLET PO SCH ×2 (09:01→17:22)
[2018-11-25] MEDS: TAMSULOSIN HCL 0.4 MG CAP.SR.24H PO SCH (09:01)
[2018-11-25] MEDS: CLOPIDOGREL BISULFATE 75 MG TABLET PO SCH (09:01)
[2018-11-25] MEDS: AMLODIPINE BESYLATE 5 MG TABLET PO SCH (09:01)
[2018-11-25] MEDS: BUDESONIDE/FORMOTEROL 160-4.5 MCG 60 PUFF/6 GM MDI IH SCH ×2 (09:01→21:50)
[2018-11-25] MEDS: LACTULOSE SYRUP 20 GM/30 ML UDCUP PO SCH ×2 (09:02→17:19)
[2018-11-25] MEDS: LINZESS 290 MCG PO SCH (09:03)
[2018-11-25] MEDS: AMIODARONE HCL 200 MG TABLET PO SCH ×2 (09:05→21:45)
--- NOTE | 2018-11-25 11:26 | PDOC PROGRESS REPORT ---
Subjective Progress Note for:: 11/25/18 Subjective:: No acute events overnight. Mild improvement significant changes compared to yesterday. Has not been to dependent on BiPAP. Been on BiPAP only last night. SPO2 96-98% on 5 L, FiO2 40%. RR 13-22. Complaining of dyspnea on exertion tolerating BiPAP. P.o. tolerant, having normal bowel and bladder movements. Denies any chest pain, nausea, vomiting, diarrhea, constipation, fever or any urinary symptoms. Reason For Visit: COPD CHF EXACERBATION BRONCHITIS Physical Exam Vital Signs: Temp Pulse Resp BP Pulse Ox 98.0 F 65 20 148/61 H 97 11/25/18 07:27 11/25/18 09:01 11/25/18 09:01 11/25/18 07:27 11/25/18 09:01 Intake & Output 11/24/18 11/25/18 11/26/18 06:59 06:59 06:59 Intake Total 930 1105 50 Balance 930 1105 50 Weight 91.5 kg General appearance: PRESENT: no acute distress, well-developed, well-nourished Head exam: PRESENT: atraumatic, normocephalic Neck exam: ABSENT: carotid bruit, JVD, lymphadenopathy, thyromegaly Respiratory exam: PRESENT: clear to auscultation zay, prolonged expiratory phas. ABSENT: rales, rhonchi, wheezes Cardiovascular exam: PRESENT: RRR. ABSENT: diastolic murmur, rubs, systolic murmur GI/Abdominal exam: PRESENT: normal bowel sounds, soft. ABSENT: distended, guarding, mass, organolmegaly, rebound, tenderness Extremities exam: PRESENT: full ROM, pedal edema - trace. ABSENT: calf tenderness, clubbing Neurological exam: PRESENT: alert, awake, oriented to person, oriented to place, oriented to time, oriented to situation, CN II-XII grossly intact. ABSENT: motor sensory deficit Results Laboratory Results: 11/25/18 05:55 11/25/18 05:55 11/25/18 11/25/18 11/25/18 05:55 05:55 06:15 WBC 6.3 RBC 3.70 L Hgb 10.8 L Hct 32.1 L MCV 87 MCH 29.3 MCHC 33.8 RDW 17.1 H Plt Count 193 Seg Neutrophils % Not Reportable Lymphocytes % Not Reportable Monocytes % Not Reportable Eosinophils % Not Reportable Basophils % Not Reportable Absolute Neutrophils Not Reportable Absolute Lymphocytes Not Reportable Absolute Monocytes Not Reportable Absolute Eosinophils Not Reportable Absolute Basophils Not Reportable Carbonic Acid 1.54 H HCO3/H2CO3 Ratio 19:1 ABG pH 7.38 ABG pCO2 51.3 H ABG pO2 81.9 ABG HCO3 29.5 H ABG O2 Saturation 95.7 ABG Base Excess 3.5 FiO2 30% Sodium 137.0 Potassium 4.7 Chloride 99 Carbon Dioxide 31 H Anion Gap 7 BUN 49 H Creatinine 1.46 H Est GFR ( Amer) 58 L Est GFR (Non-Af Amer) 48 L Glucose 251 H Calcium 8.5 Magnesium 2.9 H Total Bilirubin 0.4 AST 405 H ALT 615 H Alkaline Phosphatase 136 H Total Protein 5.7 L Albumin 2.8 L 11/17/18 11/17/18 11/17/18 02:57 02:57 02:57 Creatine Kinase 70 CK-MB (CK-2) 3.17 Troponin I 0.030 NT-Pro-B Natriuret Pep 3040 H 11/17/18 11/17/18 11/17/18 12:00 12:00 16:55 Creatine Kinase 51 L 59 CK-MB (CK-2) 3.38 Troponin I 0.026 NT-Pro-B Natriuret Pep 11/17/18 16:55 Creatine Kinase CK-MB (CK-2) 4.46 Troponin I 0.026 NT-Pro-B Natriuret Pep Impressions: Chest X-Ray 11/17/18 02:55 IMPRESSION: Small left lower lobar pneumonia/atelectasis. Recommend CR/CT surveillance including at 7-12 weeks following initiation of any clinically warranted therapy. Chest/Abdomen CTA 11/17/18 05:07 IMPRESSION: Cardiomegaly with no aortic dissection or aneurysm. No pulmonary embolus. Bilateral pneumonia with mediastinal adenopathy. Assessment & Plan - Diagnosis (1) Pneumonia Is this a current diagnosis for this admission?: Yes Plan: Mild improvement. O2 sat 96% 3-4 L, FiO2 30% Likely community-acquired URI on stage IV lung cancer, COPD. On admission CBC on admission 12.9 no bandemia, saturating 89%. VBG pH 7.44. WBC within normal limits. No bandemia. BNP 3040 up from 301 on 05/15/2018. Troponins 0.03, 0.026, 0.026. 11/17/2018 CTA bilateral pneumonia with mediastinal adenopathy. No PE. Cultures no growth, cefepime day 8. At this point I believe patient pneumonia is not the main cause of his persistent hypoxia. His antibiotics and IV steroids could be stopped if pulmonology agrees. Consult pulmonology with the patient for possible discharge to rehab with BiPAP. No culture available prior to antibiotic therapy. (2) COPD exacerbation Is this a current diagnosis for this admission?: Yes Plan: Secondary to #1. Continue supplemental oxygen, nebs, IV steroids, BiPAP. Consult pulmonology with the patient for possible discharge to rehab with BiPAP. (3) Abnormal LFTs Is this a current diagnosis for this admission?: Yes Plan: Likely secondary to underlying metastasis. Avoid hepatotoxic meds. LFTs tomorrow. Persistent trending up. This could also be due to amiodarone for his A. fib. Will get liver hepatitis panel and liver ultrasound if blood negative with consult gastroenterology and cardiology for possibly stopping amiodarone if that turns out to be the cause. (4) Squamous cell carcinoma of lung, stage IV Is this a current diagnosis for this admission?: Yes Plan: Per H&P he has declined intervention or oncology consult. He has also mentioned on admission to withdraw intubation if he needs it more than 72 hours. Palliative care has been consulted but as per patient he was told that he is not a candidate at this point. 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 BNP 3040 up from 301 on 05/15/2018. Status post CABG on 09/2019 at [facility]. Monitor volume status, strict in and out, cardiac diet, continue diuretics, beta-blockers. Echo prior to CABG 05/16/2018. 2D echo left ventricular ejection fraction 25%. Global hypokinesis, grade I/IV diastolic dysfunction. Repeat echo on 11/22/2018 repeat echo left ventricular ejection fraction more than 60%. (6) Atrial fibrillation with rapid ventricular response Is this a current diagnosis for this admission?: Yes Plan: Rate controlled. Continue home meds. (7) BPH (benign prostatic hyperplasia) Is this a current diagnosis for this admission?: No Plan: Restart home meds. (8) Constipation Is this a current diagnosis for this admission?: Yes Plan: Improved. Restarted home meds. (9) Diabetes mellitus Is this a current diagnosis for this admission?: No Plan: Controlled. Diabetic, sliding scale insulin, adjust meds as needed. (10) Acute kidney injury superimposed on CKD Is this a current diagnosis for this admission?: Yes Plan: Improving. Electrolytes within normal limits. Monitor volume status and electrolytes and replace as needed. Baseline creatinine 1.83, creatinine on admission 1.73. (11) Coronary artery disease Qualifiers: Coronary Disease-Associated Artery/Lesion type: [place] artery [place] vs. transplanted heart: [place] heart Associated angina: angina presence unspecified Qualified Code(s): I25.10 - Atherosclerotic heart disease of [place] coronary artery without angina pectoris Is this a current diagnosis for this admission?: Yes Plan: Status post CABG 09/2019 [place]. Continue antiplatelets, beta blockers, statins. May benefit from EHSAN/ARB unfortunately he has CHRIS on CKD which needs further evaluation and follow-up with nephrology. Outpatient cardiology follow-up (12) Anxiety Is this a current diagnosis for this admission?: No Plan: Restart home meds. Monitor for respiratory depression.
[2018-11-25] MEDS: ATORVASTATIN CALCIUM 80 MG TABLET PO SCH (21:44)
[2018-11-26] MEDS: IPRATROPIUM/ALBUTEROL 0.5-2.5 MG/3 ML AMPUL NEB SCH ×4 (02:18→20:29)
[2018-11-26] MEDS: OXYCODONE-ACETAMINOPHEN 5-325 MG TABLET PO PRN ×2 (05:09→21:42)
[2018-11-26] MEDS: DIAZEPAM 5 MG TABLET PO PRN ×2 (05:09→17:53)
[2018-11-26] MEDS: HYDRALAZINE HCL 50 MG TABLET PO SCH ×3 (05:10→21:39)
[2018-11-26] MEDS: HEPARIN SOD (PORCINE) 5,000 UNIT/ML 1 ML SYRINGE SUBCUT SCH ×3 (05:10→21:39)
[2018-11-26] MEDS: METHYLPREDNISOLONE INJ 40 MG/1 ML SDV IV SCH ×3 (05:10→21:41)
[2018-11-26] MEDS: LEVOTHYROXINE SODIUM 0.112 MG TABLET PO SCH (05:13)
[2018-11-26] MEDS: LEVOTHYROXINE SODIUM 0.025 MG TABLET PO SCH (05:13)
[2018-11-26] MEDS: INSULIN LISPRO 100 UNIT/ML 3 ML VIAL SUBCUT SCH ×4 (09:52→21:40)
[2018-11-26] MEDS: CEFEPIME 2 GM/D5W RTU 2 GM/50 ML RTUPB IV SCH ×2 (09:53→21:40)
[2018-11-26] MEDS: LACTULOSE SYRUP 20 GM/30 ML UDCUP PO SCH ×2 (09:54→17:09)
[2018-11-26] MEDS: LINZESS 290 MCG PO SCH (09:54)
[2018-11-26] MEDS: BUDESONIDE/FORMOTEROL 160-4.5 MCG 60 PUFF/6 GM MDI IH SCH ×2 (09:54→21:41)
[2018-11-26] MEDS: ASPIRIN 81 MG TABLET, CHEWABLE PO SCH (09:55)
[2018-11-26] MEDS: CLOPIDOGREL BISULFATE 75 MG TABLET PO SCH (09:55)
[2018-11-26] MEDS: FAMOTIDINE 20 MG TABLET PO SCH (09:55)
[2018-11-26] MEDS: FUROSEMIDE 40 MG TABLET PO SCH ×2 (09:56→17:17)
[2018-11-26] MEDS: TAMSULOSIN HCL 0.4 MG CAP.SR.24H PO SCH (09:56)
[2018-11-26] MEDS: AMLODIPINE BESYLATE 5 MG TABLET PO SCH (09:56)
[2018-11-26] MEDS: FINASTERIDE 5 MG TABLET PO SCH (09:57)
[2018-11-26] MEDS: METOPROLOL SUCCINATE 50 MG TAB.SR.24H PO SCH (09:57)
--- NOTE | 2018-11-26 09:57 | RADIOLOGY REPORT (SQ) ---
EXAM DESCRIPTION: U/S ABDOMEN LTD W/DOPPLER COMPLETED DATE/TIME: 11/26/2018 9:27 am REASON FOR STUDY: Elevated LFts COMPARISON: None. TECHNIQUE: Dynamic and static grayscale images acquired of the abdomen and recorded on PACS. Additio nal selected color Doppler and spectral images recorded. LIMITATIONS: None. FINDINGS: PANCREAS: No masses. Visualized pancreatic duct normal caliber. LIVER: Normal size Echo texture normal. No focal masses. LIVER VASCULATURE: Normal directional flow of the main portal vein and hepatic veins. GALLBLADDER: No stones. Normal wall thickness. No pericholecystic fluid. ULTRASOUND-DETECTED SUTHERLAND'S SIGN: Negative. INTRAHEPATIC DUCTS AND COMMON DUCT: CBD and intrahepatic ducts normal caliber. No filling defects. INFERIOR VENA CAVA: Normal flow. AORTA: No aneurysm. RIGHT KIDNEY: Normal size. There are 2 renal cysts, the largest 4.5 cm. No solid or suspicious m asses. No hydronephrosis. No calcifications. PERITONEAL AND RIGHT PLEURAL SPACE: No ascites or effusions. OTHER: No other significant findings. IMPRESSION: No acute findings. TECHNICAL DOCUMENTATION: JOB ID: [id number] [employer]- All Rights Reserved Reading location - IP/workstation name: [email or web address]
[2018-11-26] MEDS: AMIODARONE HCL 200 MG TABLET PO SCH ×2 (10:01→21:39)
[2018-11-26] MEDS: NITROGLYCERIN 0.4 MG/TAB 25 TAB/BOTTLE SL PRN ×2 (10:48→10:53)
[2018-11-26] MEDS: PANTOPRAZOLE SODIUM 40 MG VIAL IV SCH (13:22)
[2018-11-26] MEDS ORDERED: METOCLOPRAMIDE HCL ORAL SOLN 10 MG/10 ML UDCUP PO ONE (14:26)
[2018-11-26] MEDS ORDERED: MAG HYDROX/AL HYDROX/SIMETH SUSP 30 ML UDCUP PO ONE (14:26)
[2018-11-26] MEDS ORDERED: LIDOCAINE 2% VISCOUS SOLN 20 ML UDCUP PO ONE (14:26)
--- NOTE | 2018-11-26 16:48 | PDOC CONSULTATION ---
Consultation Consult Date: 11/26/18 History of Present Illness Admission Date/PCP: 11/17/18 05:40 CHRISTIANA BETTENCOURT History of Present Illness: BETSY VINES is a 72 year old male presents emergency room with increasing shortness of breath he is approximately 1 month status post triple-vessel bypass he had [place] and presented here with shortness of breath and coughing he stated that while he was getting his triple bypass he also has a lung nodules that were biopsied apparently is metastatic lung cancer the cell type was not specific he currently denies hemoptysis fevers chills nausea vomiting diarrhea he states this is bypasses chest pain and tightness has diminished significantly he missed approximately [id number] history of smoking but has not smoked since his surgery last but no chemicals or radiation or asbestos he has 2 cats and no recent travel denies angina-like chest pain sleeps on hospital bed at 45 degree angle no PND occasional nocturnal cough and a decreasing frequency of edema. He does not wear BiPAP but he does wear oxygen at nighttime Past Medical History Cardiac Medical History: Reports: Myocardial Infarction - 1998, Hypertension Denies: Atrial Fibrillation, Coronary Artery Disease Pulmonary Medical History: Reports: Asthma, Bronchitis, Chronic Obstructive Pulmonary Disease (COPD) Denies: Pneumonia Neurological Medical History: Denies: Seizures Endocrine Medical History: Reports: Diabetes Mellitus Type 2 GI Medical History: Denies: Hepatitis, Hiatal Hernia Musculoskeltal Medical History: Reports: Arthritis Psychiatric Medical History: Reports: Depression, Tobacco Dependency Denies: Alcohol Dependency, Attention Deficit Hyperactivity Disorder Hematology: Denies: Anemia, Sickle Cell Disease Past Surgical History Past Surgical History: Reports: Cardiac Catheterization, Coronary Artery Bypass Graft Denies: Pacemaker Social History Lives with: Spouse/Significant other Smoking Status: Current Every Day Smoker Frequency of Alcohol Use: None Hx Recreational Drug Use: No Drugs: None Hx Prescription Drug Abuse: No - Advance Directive Resuscitation Status: Full Code Family History Family History: CAD, DM Parental Family History Reviewed: Yes Children Family History Reviewed: Yes Sibling(s) Family History Reviewed.: Yes Medication/Allergy Home Medications: Albuterol Sulfate [Proair Hfa Inhalation Aerosol 8.5 gm Mdi] 2 puff IH Q4HP PRN 11/17/18 Amiodarone HCl [Cordarone 200 mg Tablet] 200 mg PO DAILY 11/17/18 Aspirin [Aspirin 81 mg Chewable Tablet] 81 mg PO DAILY 11/17/18 Atorvastatin Calcium [Lipitor 80 mg Tablet] 80 mg PO QHS 11/17/18 Budesonide/Formoterol Fumarate [Symbicort Hfa 160-4.5 Mcg Inhaler 6 gm] 2 puff IH Q12 11/17/18 Clopidogrel Bisulfate [Plavix 75 mg Tablet] 75 mg PO DAILY 11/17/18 Diazepam [Valium 5 mg Tablet] 5 mg PO Q12HP PRN 11/17/18 Ferrous Sulfate [Feosol 325 mg Tablet] 325 mg PO DAILY 11/17/18 Finasteride [Proscar 5 mg Tablet] 5 mg PO DAILY 11/17/18 Furosemide [Lasix 40 mg Tablet] 40 mg PO DAILYP PRN 11/17/18 Furosemide [Lasix 40 mg Tablet] 40 mg PO QAM 11/17/18 Hydralazine HCl [Apresoline 50 mg Tablet] 100 mg PO Q8 11/17/18 Ipratropium/Albuterol Sulfate [Duoneb 3 ml Ampul] 3 ml NEB RTQ4 11/17/18 Levothyroxine Sodium [Synthroid] 137 mcg PO Q6AM 11/17/18 Linaclotide [Linzess] 290 mcg PO DAILY 11/17/18 Metoprolol Succinate [Toprol Xl 50 mg Tab.sr] 50 mg PO DAILY 11/17/18 Nitroglycerin [Nitrostat 0.4 mg (1/150 Gr) Tabs 25/Bottle] 1 tab SL Q5MP PRN 11/17/18 Oxycodone HCl/Acetaminophen [Percocet 5-325 mg Tablet] 1 tab PO Q4HP PRN 11/17/18 Potassium Chloride [Klor-Con 10 Meq Capsule ER] 10 meq PO BID 11/17/18 Tamsulosin HCl [Flomax 0.4 mg Cap.sr] 0.4 mg PO DAILY 11/17/18 Tiotropium Filion [Spiriva Respimat] 2 puff IH DAILY 11/17/18 Allergies/Adverse Reactions: levofloxacin [From Levaquin] Allergy (Unknown, Verified 05/16/18 07:52) uncertain fluticasone propionate [From Advair Diskus] Adverse Reaction (Severe, Verified 05/16/18 07:52) "Can't use my arms" salmeterol xinafoate [From Advair Diskus] Adverse Reaction (Severe, Verified 05/16/18 07:52) "Can't use my arms" varenicline tartrate [From Chantix] Adverse Reaction (Intermediate, Verified 05/16/18 07:52) Hallucinations Review of Systems Constitutional: PRESENT: fatigue, weakness. ABSENT: anorexia, night sweats Eyes: ABSENT: visual disturbances Ears: ABSENT: hearing changes Nose, Mouth, and Throat: ABSENT: mouth pain, sore throat Cardiovascular: PRESENT: dyspnea on exertion. ABSENT: chest pain Respiratory: PRESENT: cough, dyspnea, sputum. ABSENT: hemoptysis Gastrointestinal: ABSENT: abdominal pain, bloating, coffee ground emesis, diarrhea, dysphagia, hematemesis, melena, nausea, vomiting Genitourinary: ABSENT: dysuria, hematuria Musculoskeletal: ABSENT: deformity, joint swelling Integumentary: ABSENT: pruritus, rash Neurological: ABSENT: abnormal gait, abnormal movements, abnormal speech, confusion, convulsions, frequent falls, lack of coordination, memory loss, numbness Psychiatric: ABSENT: anxiety, hallucinations, homidical ideation, suicidal ideation Endocrine: ABSENT: cold intolerance, heat intolerance, polydipsia, polyuria Hematologic/Lymphatic: PRESENT: easy bruising Allergic/Immunologic: PRESENT: seasonal rhinorrhea Physical Exam Vital Signs: Temp Pulse Resp BP Pulse Ox 97.8 F 60 19 140/58 H 97 11/26/18 15:55 11/26/18 15:55 11/26/18 15:55 11/26/18 15:55 11/26/18 15:55 Intake & Output 11/25/18 11/26/18 11/27/18 06:59 06:59 06:59 Intake Total 1105 850 50 Balance 1105 850 50 Weight 91.5 kg 91.8 kg General appearance: PRESENT: no acute distress, disheveled, well-developed, well-nourished Head exam: PRESENT: atraumatic, normocephalic Eye exam: PRESENT: conjunctiva pale, EOMI. ABSENT: nystagmus Mouth exam: PRESENT: dry mucosa, neck supple, tongue midline Neck exam: ABSENT: carotid bruit, JVD, lymphadenopathy, thyromegaly, tracheal deviation, tracheostomy Respiratory exam: PRESENT: decreased breath sounds, prolonged expiratory phas, rales, rhonchi, unlabored, wheezes. ABSENT: retraction, stridor Cardiovascular exam: PRESENT: RRR, +S1, +S2, tachycardia Pulses: PRESENT: normal radial pulses GI/Abdominal exam: PRESENT: soft. ABSENT: tenderness Extremities exam: ABSENT: calf tenderness, clubbing, joint swelling Musculoskeletal exam: ABSENT: deformity, dislocation Neurological exam: PRESENT: alert, awake Psychiatric exam: PRESENT: flat affect Skin exam: PRESENT: dry, warm Results Laboratory Results: 11/25/18 05:55 11/25/18 05:55 11/17/18 11/17/18 11/17/18 02:57 02:57 02:57 Creatine Kinase 70 CK-MB (CK-2) 3.17 Troponin I 0.030 NT-Pro-B Natriuret Pep 3040 H 11/17/18 11/17/18 11/17/18 12:00 12:00 16:55 Creatine Kinase 51 L 59 CK-MB (CK-2) 3.38 Troponin I 0.026 NT-Pro-B Natriuret Pep 11/17/18 11/26/18 16:55 11:17 Creatine Kinase CK-MB (CK-2) 4.46 Troponin I 0.026 0.024 NT-Pro-B Natriuret Pep Impressions: Chest X-Ray 11/17/18 02:55 IMPRESSION: Small left lower lobar pneumonia/atelectasis. Recommend CR/CT surveillance including at 7-12 weeks following initiation of any clinically warranted therapy. Chest/Abdomen CTA 11/17/18 05:07 IMPRESSION: Cardiomegaly with no aortic dissection or aneurysm. No pulmonary embolus. Bilateral pneumonia with mediastinal adenopathy. Abdomen Ultrasound 11/26/18 00:00 IMPRESSION: No acute findings. Assessment & Plan - Diagnosis (1) Anxiety Is this a current diagnosis for this admission?: Yes Plan: Stressed about recent diet doses (2) COPD (chronic obstructive pulmonary disease) Qualifiers: COPD type: unspecified COPD Qualified Code(s): J44.9 - Chronic obstructive pulmonary disease, unspecified Is this a current diagnosis for this admission?: Yes Plan: Continue current bronchodilator therapy (3) Pneumonia Is this a current diagnosis for this admission?: Yes Plan: Despite opacities noted on chest x-ray did not think that antibiotic therapy would be of further use at this time as he has no leukocytosis borderline left shift and is afebrile (4) Squamous cell carcinoma of lung, stage IV Is this a current diagnosis for this admission?: Yes Plan: bilateral (5) Atrial fibrillation with rapid ventricular response Is this a current diagnosis for this admission?: Yes Plan: sTable at this time
--- NOTE | 2018-11-26 17:53 | EKG REPORT ---
SEVERITY:- BORDERLINE ECG - SINUS RHYTHM BORDERLINE PROLONGED QT INTERVAL : Confirmed by: Harmony Dennis MD 26-Nov-2018 17:52:33
--- NOTE | 2018-11-26 19:04 | PDOC PROGRESS REPORT ---
Subjective Progress Note for:: 11/26/18 Subjective:: This is a 72-year-old male with a past medical history of COPD, stage IV squamous cell carcinoma of the lungrefused therapy and oncology consult, CAD with CABG in Aug 2018 who initially presented with increasing shortness of breath. He had a chest CT on admission which was suggestive of multifocal pneumonia with focal consolidation on the right and left lobes and COPD exacerbation. He was initially started on IV broad-spectrum antibiotics. Pulmonology was also consulted. No acute event overnight. Patient complained of transient chest pain this morning. EKG and troponin were unremarkable. Upon encounter, he said chest pain was more of a heartburn sensation. He was given a GI cocktail which did relieve his symptoms. He says that he is still having shortness of breath but he appears comfortable and saturating well on BiPAP. Reason For Visit: COPD CHF EXACERBATION BRONCHITIS Physical Exam Vital Signs: Temp Pulse Resp BP Pulse Ox 97.8 F 60 19 140/58 H 97 11/26/18 15:55 11/26/18 15:55 11/26/18 15:55 11/26/18 15:55 11/26/18 15:55 Intake & Output 11/25/18 11/26/18 11/27/18 06:59 06:59 06:59 Intake Total 1105 850 50 Balance 1105 850 50 Weight 201 lb 11.567 oz 202 lb 6.15 oz General appearance: PRESENT: no acute distress, well-developed, well-nourished Head exam: PRESENT: atraumatic, normocephalic Eye exam: PRESENT: conjunctiva pink, EOMI, PERRLA. ABSENT: scleral icterus Ear exam: PRESENT: normal external ear exam Mouth exam: PRESENT: moist, tongue midline Neck exam: ABSENT: carotid bruit, JVD, lymphadenopathy, thyromegaly Respiratory exam: PRESENT: rales - on the bases, rhonchi. ABSENT: wheezes Cardiovascular exam: PRESENT: RRR. ABSENT: diastolic murmur, rubs, systolic murmur Pulses: PRESENT: normal dorsalis pedis pul GI/Abdominal exam: PRESENT: normal bowel sounds, soft. ABSENT: distended, guarding, mass, organolmegaly, rebound, tenderness Rectal exam: PRESENT: deferred Neurological exam: PRESENT: alert, awake, oriented to person, oriented to place, oriented to time, oriented to situation, CN II-XII grossly intact. ABSENT: motor sensory deficit Results Laboratory Results: 11/25/18 05:55 11/25/18 05:55 11/17/18 11/17/18 11/17/18 02:57 02:57 02:57 Creatine Kinase 70 CK-MB (CK-2) 3.17 Troponin I 0.030 NT-Pro-B Natriuret Pep 3040 H 11/17/18 11/17/18 11/17/18 12:00 12:00 16:55 Creatine Kinase 51 L 59 CK-MB (CK-2) 3.38 Troponin I 0.026 NT-Pro-B Natriuret Pep 11/17/18 11/26/18 16:55 11:17 Creatine Kinase CK-MB (CK-2) 4.46 Troponin I 0.026 0.024 NT-Pro-B Natriuret Pep Impressions: Chest X-Ray 11/17/18 02:55 IMPRESSION: Small left lower lobar pneumonia/atelectasis. Recommend CR/CT surveillance including at 7-12 weeks following initiation of any clinically warranted therapy. Chest/Abdomen CTA 11/17/18 05:07 IMPRESSION: Cardiomegaly with no aortic dissection or aneurysm. No pulmonary embolus. Bilateral pneumonia with mediastinal adenopathy. Abdomen Ultrasound 11/26/18 00:00 IMPRESSION: No acute findings. Assessment & Plan - Diagnosis (1) Acute respiratory failure with hypoxia Is this a current diagnosis for this admission?: Yes Plan: Possibly from community acquired pneumonia. Patient is currently saturating well on current BiPAP settings. (2) Pneumonia Is this a current diagnosis for this admission?: Yes Plan: On cefepime. Will discuss with pulmonology about possible discontinuation of antibiotics. (3) COPD exacerbation Is this a current diagnosis for this admission?: Yes Plan: Currently on IV Solu-Medrol 40 mg IV every 8. Continue breathing treatments. - Time Time Spent with patient: 25-34 minutes
[2018-11-26] MEDS: ATORVASTATIN CALCIUM 80 MG TABLET PO SCH (21:40)
[2018-11-27] MEDS: IPRATROPIUM/ALBUTEROL 0.5-2.5 MG/3 ML AMPUL NEB SCH ×4 (02:05→21:05)
[2018-11-27] MEDS: OXYCODONE-ACETAMINOPHEN 5-325 MG TABLET PO PRN ×2 (04:02→22:23)
[2018-11-27] MEDS: HEPARIN SOD (PORCINE) 5,000 UNIT/ML 1 ML SYRINGE SUBCUT SCH ×3 (05:13→22:21)
[2018-11-27] MEDS: LEVOTHYROXINE SODIUM 0.025 MG TABLET PO SCH (05:32)
[2018-11-27] MEDS: LEVOTHYROXINE SODIUM 0.112 MG TABLET PO SCH (05:32)
[2018-11-27] MEDS: HYDRALAZINE HCL 50 MG TABLET PO SCH ×3 (05:32→22:21)
[2018-11-27] MEDS: METHYLPREDNISOLONE INJ 40 MG/1 ML SDV IV SCH ×3 (05:32→22:22)
[2018-11-27] MEDS: DIAZEPAM 5 MG TABLET PO PRN ×2 (05:32→17:55)
[2018-11-27 05:40] LABS: HEPATITIS A AB IGM Negative (Negative); HEPATITIS B CORE AB IGM Negative (Negative); HEPATITS B SURFACE ANTIGEN Negative (Negative)
[2018-11-27 07:17] LABS: HEPATITIS C VIRUS ANTIBODY 0.2 s/co ratio (0.0-0.9)
[2018-11-27] MEDS: INSULIN LISPRO 100 UNIT/ML 3 ML VIAL SUBCUT SCH ×4 (08:24→22:22)
[2018-11-27] MEDS: BUDESONIDE/FORMOTEROL 160-4.5 MCG 60 PUFF/6 GM MDI IH SCH ×2 (10:02→22:23)
[2018-11-27] MEDS: CEFEPIME 2 GM/D5W RTU 2 GM/50 ML RTUPB IV SCH (10:03)
[2018-11-27] MEDS: LINZESS 290 MCG PO SCH (10:04)
[2018-11-27] MEDS: ASPIRIN 81 MG TABLET, CHEWABLE PO SCH (10:04)
[2018-11-27] MEDS: TAMSULOSIN HCL 0.4 MG CAP.SR.24H PO SCH (10:04)
[2018-11-27] MEDS: AMLODIPINE BESYLATE 5 MG TABLET PO SCH (10:05)
[2018-11-27] MEDS: CLOPIDOGREL BISULFATE 75 MG TABLET PO SCH (10:05)
[2018-11-27] MEDS: METOPROLOL SUCCINATE 50 MG TAB.SR.24H PO SCH (10:05)
[2018-11-27] MEDS: FINASTERIDE 5 MG TABLET PO SCH (10:05)
[2018-11-27] MEDS: FAMOTIDINE 20 MG TABLET PO SCH (10:06)
[2018-11-27] MEDS: FUROSEMIDE 40 MG TABLET PO SCH ×2 (10:06→17:54)
[2018-11-27] MEDS: LACTULOSE SYRUP 20 GM/30 ML UDCUP PO SCH ×2 (10:07→17:41)
[2018-11-27] MEDS: PANTOPRAZOLE SODIUM 40 MG VIAL IV SCH (10:07)
[2018-11-27] MEDS: AMIODARONE HCL 200 MG TABLET PO SCH ×2 (10:37→22:21)
[2018-11-27] MEDS: CLONAZEPAM 1 MG TABLET PO SCH ×2 (13:22→22:23)
--- NOTE | 2018-11-27 17:13 | PDOC PROGRESS REPORT ---
Subjective Progress Note for:: 11/27/18 Subjective:: This is a 72-year-old male with a past medical history of COPD, stage IV squamous cell carcinoma of the lungrefused therapy and oncology consult, CAD with CABG in Aug 2018 who initially presented with increasing shortness of breath. He had a chest CT on admission which was suggestive of multifocal pneumonia with focal consolidation on the right and left lobes and COPD exacerbation. He was initially started on IV broad-spectrum antibiotics. Pulmonology was also consulted. 11/26: Patient complained of transient chest pain this morning. EKG and troponin were unremarkable. Upon encounter, he said chest pain was more of a heartburn sensation. He was given a GI cocktail which did relieve his symptoms. He says that he is still having shortness of breath but he appears comfortable and saturating well on BiPAP. 11/27: No acute event overnight. He says he gets SOB off the BIPAP but does say he's particularly more anxious when off the BIPAP. Hospice care transition was discussed with patine ama and they are receptive about this but wants to talk to the software development project manager first about the prognosis of his lung CA before definitively transitioning to home hospice. Rediscussed code status in length and both patient and say he does not want chest compressions or defibrillation but specifically verbalizes he is okay with intubation and short term ventilation if it comes to it and specified to only be kept on ventilation up to 3 days. Reason For Visit: COPD CHF EXACERBATION BRONCHITIS Physical Exam Vital Signs: Temp Pulse Resp BP Pulse Ox 98.5 F 65 18 125/49 L 97 11/27/18 15:17 11/27/18 15:17 11/27/18 15:17 11/27/18 15:17 11/27/18 16:42 Intake & Output 11/26/18 11/27/18 11/28/18 06:59 06:59 06:59 Intake Total 850 925 50 Balance 850 925 50 Weight 202 lb 6.15 oz 203 lb 4.259 oz General appearance: PRESENT: no acute distress, well-developed, well-nourished Head exam: PRESENT: atraumatic, normocephalic Eye exam: PRESENT: conjunctiva pink, EOMI, PERRLA. ABSENT: scleral icterus Ear exam: PRESENT: normal external ear exam Mouth exam: PRESENT: moist, tongue midline Neck exam: ABSENT: carotid bruit, JVD, lymphadenopathy, thyromegaly Respiratory exam: PRESENT: rhonchi. ABSENT: rales, wheezes Cardiovascular exam: PRESENT: RRR. ABSENT: diastolic murmur, rubs, systolic murmur Pulses: PRESENT: normal dorsalis pedis pul GI/Abdominal exam: PRESENT: normal bowel sounds, soft. ABSENT: distended, guarding, mass, organolmegaly, rebound, tenderness Rectal exam: PRESENT: deferred Neurological exam: PRESENT: alert, awake, oriented to person, oriented to place, oriented to time, oriented to situation, CN II-XII grossly intact. ABSENT: motor sensory deficit Results Laboratory Results: 11/25/18 05:55 11/25/18 05:55 11/17/18 11/17/18 11/17/18 02:57 02:57 02:57 Creatine Kinase 70 CK-MB (CK-2) 3.17 Troponin I 0.030 NT-Pro-B Natriuret Pep 3040 H 11/17/18 11/17/18 11/17/18 12:00 12:00 16:55 Creatine Kinase 51 L 59 CK-MB (CK-2) 3.38 Troponin I 0.026 NT-Pro-B Natriuret Pep 11/17/18 11/26/18 16:55 11:17 Creatine Kinase CK-MB (CK-2) 4.46 Troponin I 0.026 0.024 NT-Pro-B Natriuret Pep Impressions: Chest X-Ray 11/17/18 02:55 IMPRESSION: Small left lower lobar pneumonia/atelectasis. Recommend CR/CT surveillance including at 7-12 weeks following initiation of any clinically warranted therapy. Chest/Abdomen CTA 11/17/18 05:07 IMPRESSION: Cardiomegaly with no aortic dissection or aneurysm. No pulmonary embolus. Bilateral pneumonia with mediastinal adenopathy. Abdomen Ultrasound 11/26/18 00:00 IMPRESSION: No acute findings. Assessment & Plan - Diagnosis (1) Acute respiratory failure with hypoxia Is this a current diagnosis for this admission?: Yes Plan: Possibly from community acquired pneumonia. Patient is currently saturating well on current BiPAP settings. (2) Pneumonia Is this a current diagnosis for this admission?: Yes Plan: On cefepime. Discontinue antibiotics. He has received 10 days of IV antibiotics. Sputum culture was negative. (3) COPD exacerbation Is this a current diagnosis for this admission?: Yes Plan: Reduce solumedrol to 40 mg q12h. Continue breathing treatments. (4) Squamous cell carcinoma of lung, stage IV Is this a current diagnosis for this admission?: Yes Plan: Awaiting records from [facility] where he got diagnosed with stage 4 lung CA. Offered oncology consult again and patient says he rather prefers to discuss his prognosis with Dr. Lea rather than an oncologist. - Time Time Spent with patient: 25-34 minutes
[2018-11-27] MEDS: ATORVASTATIN CALCIUM 80 MG TABLET PO SCH (22:23)
[2018-11-28] MEDS: IPRATROPIUM/ALBUTEROL 0.5-2.5 MG/3 ML AMPUL NEB SCH ×4 (02:33→20:51)
[2018-11-28] MEDS: HYDRALAZINE HCL 50 MG TABLET PO SCH ×3 (05:16→22:11)
[2018-11-28] MEDS: LEVOTHYROXINE SODIUM 0.112 MG TABLET PO SCH (05:16)
[2018-11-28] MEDS: DIAZEPAM 5 MG TABLET PO PRN ×3 (05:17→22:14)
[2018-11-28] MEDS: HEPARIN SOD (PORCINE) 5,000 UNIT/ML 1 ML SYRINGE SUBCUT SCH ×3 (05:17→22:12)
[2018-11-28] MEDS: LEVOTHYROXINE SODIUM 0.025 MG TABLET PO SCH (05:17)
[2018-11-28] MEDS: OXYCODONE-ACETAMINOPHEN 5-325 MG TABLET PO PRN ×3 (05:17→22:14)
[2018-11-28] MEDS: INSULIN LISPRO 100 UNIT/ML 3 ML VIAL SUBCUT SCH ×4 (08:40→22:12)
[2018-11-28] MEDS: LACTULOSE SYRUP 20 GM/30 ML UDCUP PO SCH ×2 (09:10→17:01)
[2018-11-28] MEDS: AMIODARONE HCL 200 MG TABLET PO SCH ×2 (09:23→22:12)
[2018-11-28] MEDS: FAMOTIDINE 20 MG TABLET PO SCH (09:23)
[2018-11-28] MEDS: CLONAZEPAM 1 MG TABLET PO SCH ×2 (09:24→22:13)
[2018-11-28] MEDS: TAMSULOSIN HCL 0.4 MG CAP.SR.24H PO SCH (09:24)
[2018-11-28] MEDS: METOPROLOL SUCCINATE 50 MG TAB.SR.24H PO SCH (09:27)
[2018-11-28] MEDS: CLOPIDOGREL BISULFATE 75 MG TABLET PO SCH (09:28)
[2018-11-28] MEDS: FINASTERIDE 5 MG TABLET PO SCH (09:28)
[2018-11-28] MEDS: METHYLPREDNISOLONE INJ 40 MG/1 ML SDV IV SCH ×2 (09:28→22:13)
[2018-11-28] MEDS: FUROSEMIDE 40 MG TABLET PO SCH ×2 (09:28→17:03)
[2018-11-28] MEDS: PANTOPRAZOLE SODIUM 40 MG VIAL IV SCH (09:28)
[2018-11-28] MEDS: AMLODIPINE BESYLATE 10 MG TABLET PO SCH (09:29)
[2018-11-28] MEDS: ASPIRIN 81 MG TABLET, CHEWABLE PO SCH (09:30)
[2018-11-28] MEDS: LINZESS 290 MCG PO SCH (09:34)
[2018-11-28] MEDS: BUDESONIDE/FORMOTEROL 160-4.5 MCG 60 PUFF/6 GM MDI IH SCH ×2 (09:35→22:13)
[2018-11-28] MEDS: GUAIFENESIN SYRP 200 MG/10 ML UDC PO PRN (13:05)
--- NOTE | 2018-11-28 17:17 | PDOC PROGRESS REPORT ---
Subjective Progress Note for:: 11/28/18 Subjective:: This is a 72-year-old male with a past medical history of COPD, stage IV squamous cell carcinoma of the lungrefused therapy and oncology consult, CAD with CABG in Aug 2018 who initially presented with increasing shortness of breath. He had a chest CT on admission which was suggestive of multifocal pneumonia with focal consolidation on the right and left lobes and COPD exacerbation. He was initially started on IV broad-spectrum antibiotics. Pulmonology was also consulted. 11/26: Patient complained of transient chest pain this morning. EKG and troponin were unremarkable. Upon encounter, he said chest pain was more of a heartburn sensation. He was given a GI cocktail which did relieve his symptoms. He says that he is still having shortness of breath but he appears comfortable and saturating well on BiPAP. 11/27: He says he gets SOB off the BIPAP but does say he's particularly more anxious when off the BIPAP. Hospice care transition was discussed with patient and and they are receptive about this but wants to talk to the staple fiber washer first about the prognosis of his lung CA before definitively transitioning to home hospice. Rediscussed code status in length and both patient and say he does not want chest compressions or defibrillation but specifically verbalizes he is okay with intubation and short term ventilation if it comes to it and specified to only be kept on ventilation up to 3 days. 11/28: No acute event overnight. He was saturating well briefly on nasal cannula but complained of SOB and had to be placed back on BIPAP. and patient apparently became upset during hospice conversation with hospice team and wants to defer this service at this time. Patient and discussed with pulmonology who recommended hem/onc eval and both eventually agreed to seeing oncology. Reason For Visit: COPD CHF EXACERBATION BRONCHITIS Physical Exam Vital Signs: Temp Pulse Resp BP Pulse Ox 97.9 F 66 19 132/51 H 94 11/28/18 12:00 11/28/18 14:00 11/28/18 16:38 11/28/18 12:00 11/28/18 16:38 Intake & Output 11/27/18 11/28/18 11/29/18 06:59 06:59 06:59 Intake Total 925 880 Balance 925 880 Weight 203 lb 4.259 oz 194 lb 14.218 oz General appearance: PRESENT: no acute distress, well-developed, well-nourished Head exam: PRESENT: atraumatic, normocephalic Eye exam: PRESENT: conjunctiva pink, EOMI, PERRLA. ABSENT: scleral icterus Ear exam: PRESENT: normal external ear exam Mouth exam: PRESENT: moist, tongue midline Neck exam: ABSENT: carotid bruit, JVD, lymphadenopathy, thyromegaly Respiratory exam: PRESENT: rhonchi. ABSENT: rales, wheezes Cardiovascular exam: PRESENT: RRR. ABSENT: diastolic murmur, rubs, systolic murmur Pulses: PRESENT: normal dorsalis pedis pul GI/Abdominal exam: PRESENT: normal bowel sounds, soft. ABSENT: distended, guarding, mass, organolmegaly, rebound, tenderness Rectal exam: PRESENT: deferred Extremities exam: PRESENT: full ROM. ABSENT: calf tenderness, clubbing, pedal edema Neurological exam: PRESENT: alert, awake, oriented to person, oriented to place, oriented to time, oriented to situation, CN II-XII grossly intact. ABSENT: motor sensory deficit Results Laboratory Results: 11/25/18 05:55 11/25/18 05:55 11/17/18 11/17/18 11/17/18 02:57 02:57 02:57 Creatine Kinase 70 CK-MB (CK-2) 3.17 Troponin I 0.030 NT-Pro-B Natriuret Pep 3040 H 11/17/18 11/17/18 11/17/18 12:00 12:00 16:55 Creatine Kinase 51 L 59 CK-MB (CK-2) 3.38 Troponin I 0.026 NT-Pro-B Natriuret Pep 11/17/18 11/26/18 16:55 11:17 Creatine Kinase CK-MB (CK-2) 4.46 Troponin I 0.026 0.024 NT-Pro-B Natriuret Pep Impressions: Chest X-Ray 11/17/18 02:55 IMPRESSION: Small left lower lobar pneumonia/atelectasis. Recommend CR/CT surveillance including at 7-12 weeks following initiation of any clinically warranted therapy. Chest/Abdomen CTA 11/17/18 05:07 IMPRESSION: Cardiomegaly with no aortic dissection or aneurysm. No pulmonary embolus. Bilateral pneumonia with mediastinal adenopathy. Abdomen Ultrasound 11/26/18 00:00 IMPRESSION: No acute findings. Assessment & Plan - Diagnosis (1) Acute respiratory failure with hypoxia Is this a current diagnosis for this admission?: Yes Plan: Possibly from community acquired pneumonia and COPD exacerbation on top of having lung CA. Patient is currently saturating well on current BiPAP settings. 11/28: He was saturating well briefly on nasal cannula but complained of SOB and had to be placed back on BIPAP. (2) Pneumonia Is this a current diagnosis for this admission?: Yes Plan: On cefepime. 11/27: Discontinue antibiotics. He has received 10 days of IV antibiotics. Sputum culture was negative. (3) COPD exacerbation Is this a current diagnosis for this admission?: Yes Plan: 11/27: Reduced solumedrol to 40 mg q12h. Continue breathing treatments. (4) Squamous cell carcinoma of lung, stage IV Is this a current diagnosis for this admission?: Yes Plan: 11/27: Awaiting records from [facility] where he got diagnosed with stage 4 lung CA. Offered oncology consult again and patient says he rather prefers to discuss his prognosis with Dr. Lea rather than an oncologist. 11/28: Reviewed records from [facility]. He was found to have adenocarcinoma (lung as primary source) when pericardial biopsies were done during his recent CABG. There was noted lymph node invasion. Tumor markers were negative. He is now agreeable to see oncology for further opinion. Patient and deferred hospice at this time. - Time Time Spent with patient: 25-34 minutes
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
[2018-11-28] MEDS: ATORVASTATIN CALCIUM 80 MG TABLET PO SCH (22:13)
[2018-11-28] MEDS: INSULIN DETEMIR 100 UNIT/ML 3 ML PEN SUBCUT SCH (22:13)
[2018-11-29] MEDS: IPRATROPIUM/ALBUTEROL 0.5-2.5 MG/3 ML AMPUL NEB SCH ×3 (02:26→13:47)
[2018-11-29] MEDS: DIAZEPAM 5 MG TABLET PO PRN (04:33)
[2018-11-29] MEDS ORDERED: MORPHINE SULFATE 10 MG/5 ML ORAL SOLUTION UDCUP PO ONE (05:09)
[2018-11-29] MEDS ORDERED: MORPHINE SULFATE 10 MG/5 ML ORAL SOLUTION UDCUP PO PRN (05:09)
[2018-11-29 05:23] LABS: ARTERIAL BLOOD BASE EXCESS 9.5 mmol/L; ARTERIAL BLOOD FIO2 40%; ARTERIAL BLOOD H2CO3 1.41 mmol/L (1.05-1.35); ARTERIAL BLOOD HCO3 34.2 mmol/L (20-24); ARTERIAL BLOOD O2 SATURATION 92.3 % (94-98); ARTERIAL BLOOD PCO2 46.9 mmHg (35-45); ARTERIAL BLOOD PH 7.48 (7.35-7.45); ARTERIAL BLOOD PO2 59.6 mmHg (80-100); ARTERIAL BLOOD TOTAL CO2 35.7 mmol/L (23-27)
[2018-11-29] MEDS: HYDRALAZINE HCL 50 MG TABLET PO SCH ×2 (05:33→14:23)
[2018-11-29] MEDS: LEVOTHYROXINE SODIUM 0.025 MG TABLET PO SCH (05:34)
[2018-11-29] MEDS: LEVOTHYROXINE SODIUM 0.112 MG TABLET PO SCH (05:34)
[2018-11-29] MEDS: HEPARIN SOD (PORCINE) 5,000 UNIT/ML 1 ML SYRINGE SUBCUT SCH ×2 (05:39→14:23)
[2018-11-29] MEDS ORDERED: LANSOPRAZOLE 30 MG TAB.RAP.DR PO SCH (06:00)
[2018-11-29 06:20] LABS: HEMATOCRIT 36.7 % (37.9-51.0); HEMOGLOBIN 12.3 g/dL (13.5-17.0); MEAN CORPUSCULAR HEMOGLOBIN 28.4 pg (27.0-33.4); MEAN CORPUSCULAR HGB CONC 33.5 g/dL (32.0-36.0); MEAN CORPUSCULAR VOLUME 85 fl (80-97); PLATELET COUNT 144 10^3/uL (150-450); RED BLOOD COUNT 4.34 10^6/uL (4.35-5.55); RED CELL DISTRIBUTION WIDTH 17.6 % (11.5-14.0); WHITE BLOOD COUNT 9.5 10^3/uL (4.0-10.5)
[2018-11-29 06:38] LABS: ANION GAP 10 (5-19); BLOOD UREA NITROGEN 69 mg/dL (7-20); CALCIUM 8.4 mg/dL (8.4-10.2); CARBON DIOXIDE 34 mmol/L (22-30); CHLORIDE 92 mmol/L (98-107); GLUCOSE 191 mg/dL (75-110); POTASSIUM 3.9 mmol/L (3.6-5.0); SODIUM 136.3 mmol/L (137-145)
[2018-11-29 06:54] LABS: ABSOLUTE LYMPHOCYTES# (MANUAL) 0.3 10^3/uL (0.5-4.7); ABSOLUTE NEUTROPHILS# (MANUAL) 9.2 10^3/uL (1.7-8.2); BASOPHILS % (MANUAL) 0 % (0-2); EOSINOPHILS % (MANUAL) 0 % (0-6); LYMPHOCYTES % (MANUAL) 3 % (13-45); MONOCYTES % (MANUAL) 0 % (3-13); SEGMENTED NEUTROPHILS % (MAN) 97 % (42-78); TOTAL CELLS COUNTED 100
[2018-11-29 06:55] LABS: ANISOCYTOSIS 2+; OVALOCYTES SLIGHT; PLATELET COMMENT DECREASED; POIKILOCYTOSIS SLIGHT; TOXIC GRANULATION 1+
--- NOTE | 2018-11-29 08:20 | PDOC PROGRESS REPORT ---
Subjective Progress Note for:: 11/29/18 Subjective:: Patient on BiPAP this morning, gets anxious on nasal cannula only Reason For Visit: COPD CHF EXACERBATION BRONCHITIS Physical Exam Vital Signs: Temp Pulse Resp BP Pulse Ox 98.2 F 88 24 H 144/58 H 94 11/29/18 03:24 11/29/18 08:00 11/29/18 08:00 11/29/18 03:24 11/29/18 04:57 Intake & Output 11/28/18 11/29/18 11/30/18 06:59 06:59 06:59 Intake Total 880 1235 Balance 880 1235 Weight 88.4 kg 86.5 kg General appearance: PRESENT: no acute distress, well-developed, well-nourished Head exam: PRESENT: atraumatic, normocephalic Eye exam: PRESENT: conjunctiva pink, EOMI, PERRLA. ABSENT: scleral icterus Ear exam: PRESENT: normal external ear exam Mouth exam: PRESENT: moist, tongue midline Neck exam: ABSENT: carotid bruit, JVD, lymphadenopathy, thyromegaly Respiratory exam: PRESENT: clear to auscultation zay. ABSENT: rales, rhonchi, wheezes Cardiovascular exam: PRESENT: RRR. ABSENT: diastolic murmur, rubs, systolic murmur Pulses: PRESENT: normal dorsalis pedis pul Vascular exam: PRESENT: normal capillary refill GI/Abdominal exam: PRESENT: normal bowel sounds, soft. ABSENT: distended, guarding, mass, organolmegaly, rebound, tenderness Rectal exam: PRESENT: deferred Extremities exam: PRESENT: full ROM. ABSENT: calf tenderness, clubbing, pedal edema Neurological exam: PRESENT: alert, awake, oriented to person, oriented to place, oriented to time, oriented to situation, CN II-XII grossly intact. ABSENT: motor sensory deficit Psychiatric exam: PRESENT: appropriate affect, normal mood. ABSENT: homicidal ideation, suicidal ideation Skin exam: PRESENT: dry, intact, warm. ABSENT: cyanosis, rash Results Laboratory Results: 11/29/18 05:40 11/29/18 05:40 11/29/18 11/29/18 11/29/18 04:55 05:40 05:40 WBC 9.5 RBC 4.34 L Hgb 12.3 L Hct 36.7 L MCV 85 MCH 28.4 MCHC 33.5 RDW 17.6 H Plt Count 144 L Seg Neutrophils % Not Reportable Lymphocytes % Not Reportable Monocytes % Not Reportable Eosinophils % Not Reportable Basophils % Not Reportable Absolute Neutrophils Not Reportable Absolute Lymphocytes Not Reportable Absolute Monocytes Not Reportable Absolute Eosinophils Not Reportable Absolute Basophils Not Reportable Carbonic Acid 1.41 H HCO3/H2CO3 Ratio 24:1 ABG pH 7.48 H ABG pCO2 46.9 H ABG pO2 59.6 L ABG HCO3 34.2 H ABG O2 Saturation 92.3 L ABG Base Excess 9.5 FiO2 40% Sodium 136.3 L Potassium 3.9 Chloride 92 L Carbon Dioxide 34 H Anion Gap 10 BUN 69 H Creatinine 1.80 H Est GFR ( Amer) 45 L Est GFR (Non-Af Amer) 37 L Glucose 191 H Calcium 8.4 11/17/18 11/17/18 11/17/18 02:57 02:57 02:57 Creatine Kinase 70 CK-MB (CK-2) 3.17 Troponin I 0.030 NT-Pro-B Natriuret Pep 3040 H 11/17/18 11/17/18 11/17/18 12:00 12:00 16:55 Creatine Kinase 51 L 59 CK-MB (CK-2) 3.38 Troponin I 0.026 NT-Pro-B Natriuret Pep 11/17/18 11/26/18 16:55 11:17 Creatine Kinase CK-MB (CK-2) 4.46 Troponin I 0.026 0.024 NT-Pro-B Natriuret Pep Impressions: Chest X-Ray 11/17/18 02:55 IMPRESSION: Small left lower lobar pneumonia/atelectasis. Recommend CR/CT surveillance including at 7-12 weeks following initiation of any clinically warranted therapy. Chest/Abdomen CTA 11/17/18 05:07 IMPRESSION: Cardiomegaly with no aortic dissection or aneurysm. No pulmonary embolus. Bilateral pneumonia with mediastinal adenopathy. Abdomen Ultrasound 11/26/18 00:00 IMPRESSION: No acute findings. Assessment & Plan - Diagnosis (1) Malignant neoplasm of right upper lobe of lung Is this a current diagnosis for this admission?: Yes Plan: As noted previously, patient and family does not want chemotherapy, patient not candidate for upfront immunotherapy, agree with hospice approach, but patient and family may need a few days to completely accept this. - Time Time Spent with patient: 35 or more minutes - Inpatient Certification Based on my medical assessment, after consideration of the patient's comorbidities, presenting symptoms, or acuity I expect that the services needed warrant INPATIENT care.: Yes I certify that my determination is in accordance with my understanding of Medicare's requirements for reasonable and necessary INPATIENT services [42 CFR 412.3e].: Yes Medical Necessity: Need for Nebulizer Therapy and Monitoring of Response, Risk of Complication if Not Cared For in Hospital
[2018-11-29] MEDS: METHYLPREDNISOLONE INJ 40 MG/1 ML SDV IV SCH (09:45)
[2018-11-29] MEDS: AMLODIPINE BESYLATE 10 MG TABLET PO SCH (09:45)
[2018-11-29] MEDS: CLONAZEPAM 1 MG TABLET PO SCH (09:46)
[2018-11-29] MEDS: FUROSEMIDE 40 MG TABLET PO SCH ×2 (09:46→17:04)
[2018-11-29] MEDS: CLOPIDOGREL BISULFATE 75 MG TABLET PO SCH (09:46)
[2018-11-29] MEDS: METOPROLOL SUCCINATE 50 MG TAB.SR.24H PO SCH (09:46)
[2018-11-29] MEDS: FINASTERIDE 5 MG TABLET PO SCH (09:46)
[2018-11-29] MEDS: TAMSULOSIN HCL 0.4 MG CAP.SR.24H PO SCH (09:46)
[2018-11-29] MEDS: FAMOTIDINE 20 MG TABLET PO SCH (09:46)
[2018-11-29] MEDS: ASPIRIN 81 MG TABLET, CHEWABLE PO SCH (09:46)
[2018-11-29] MEDS: INSULIN DETEMIR 100 UNIT/ML 3 ML PEN SUBCUT SCH (09:47)
[2018-11-29] MEDS: LINZESS 290 MCG PO SCH (09:48)
[2018-11-29] MEDS: BUDESONIDE/FORMOTEROL 160-4.5 MCG 60 PUFF/6 GM MDI IH SCH (09:48)
[2018-11-29] MEDS: LACTULOSE SYRUP 20 GM/30 ML UDCUP PO SCH ×2 (09:49→17:04)
[2018-11-29] MEDS: INSULIN LISPRO 100 UNIT/ML 3 ML VIAL SUBCUT SCH ×3 (09:49→16:48)
[2018-11-29] MEDS: AMIODARONE HCL 200 MG TABLET PO SCH (09:55)
[2018-11-29] MEDS ORDERED: LORAZEPAM INJ 2 MG/1 ML VIAL IV PRN (11:06)
--- NOTE | 2018-11-29 12:19 | Pulmonary Function Test ---
Pulmonary Function Test Date of Procedure:: 11/28/18 INDICATION:: Dyspnea Referring Provider: Dr.Rex Guevara - Report Spirometry: FVC 1.6 L 32% FEV1 0.91 L 24% FEV1/FVC % 55 predicted 73 FEF 25-75% 0.75 L 27% Impression: Severe obstructive ventilatory defect. Possible restrictive ventilatory defect, restrictive defect cannot be diagnosed on the basis of spirometry alone. Restrictive defect may mask the degree of obstruction.
--- NOTE | 2018-11-29 13:29 | PDOC PROGRESS REPORT ---
Subjective Progress Note for:: 11/29/18 Subjective:: This is a 72-year-old male with a past medical history of COPD, stage IV squamous cell carcinoma of the lungrefused therapy and oncology consult, CAD with CABG in Aug 2018 who initially presented with increasing shortness of breath. He had a chest CT on admission which was suggestive of multifocal pneumonia with focal consolidation on the right and left lobes and COPD exacerbation. He was initially started on IV broad-spectrum antibiotics. Pulmonology was also consulted. 11/26: Patient complained of transient chest pain this morning. EKG and troponin were unremarkable. Upon encounter, he said chest pain was more of a heartburn sensation. He was given a GI cocktail which did relieve his symptoms. He says that he is still having shortness of breath but he appears comfortable and saturating well on BiPAP. 11/27: He says he gets SOB off the BIPAP but does say he's particularly more anxious when off the BIPAP. Hospice care transition was discussed with patient and and they are receptive about this but wants to talk to the bone glue maker first about the prognosis of his lung CA before definitively transitioning to home hospice. Rediscussed code status in length and both patient and say he does not want chest compressions or defibrillation but specifically verbalizes he is okay with intubation and short term ventilation if it comes to it and specified to only be kept on ventilation up to 3 days. 11/28: He was saturating well briefly on nasal cannula but complained of SOB and had to be placed back on BIPAP. and patient apparently became upset during hospice conversation with hospice team and wants to defer this service at this time. Patient and discussed with pulmonology who recommended hem/onc eval and both eventually agreed to seeing oncology. 11/29: Oncology discussed diagnosis and prognosis in length with patient and family last night. Patient and family expressed they want to proceed with transitioning to hospice. Overnight, he did develop worsening SOB and continues to be BIPAP-dependent. He did desaturate to the 70s. This morning, he appears lethargic. He is able to tell me his name but not able to sustain a long conversation. Discussed with on bedside as well who verbalized to stop all his other medications and just focus on making him comfortable. She also verbalize, he is a DNR and also now a DNI as they initially expressed they were okay with short term intubation/ventilation. Discussed comfort measures protocol in length and she says this is what they want. Also discuss possible inpatient hospice if patient will qualify for it. Reason For Visit: COPD CHF EXACERBATION BRONCHITIS Physical Exam Vital Signs: Temp Pulse Resp BP Pulse Ox 101.6 F H 77 22 H 163/58 H 93 11/29/18 10:44 11/29/18 10:44 11/29/18 10:44 11/29/18 10:44 11/29/18 10:44 Intake & Output 11/28/18 11/29/18 11/30/18 06:59 06:59 06:59 Intake Total 880 1235 Balance 880 1235 Weight 194 lb 14.218 oz 190 lb 11.198 oz General appearance: PRESENT: mild distress Head exam: PRESENT: atraumatic, normocephalic Eye exam: PRESENT: conjunctiva pink, EOMI, PERRLA. ABSENT: scleral icterus Ear exam: PRESENT: normal external ear exam Mouth exam: PRESENT: moist, tongue midline Neck exam: ABSENT: carotid bruit, JVD, lymphadenopathy, thyromegaly Respiratory exam: PRESENT: rhonchi. ABSENT: rales, wheezes Cardiovascular exam: PRESENT: RRR. ABSENT: diastolic murmur, rubs, systolic murmur Pulses: PRESENT: normal dorsalis pedis pul GI/Abdominal exam: PRESENT: normal bowel sounds, soft. ABSENT: distended, guarding, mass, organolmegaly, rebound, tenderness Rectal exam: PRESENT: deferred Neurological exam: PRESENT: altered Results Laboratory Results: 11/29/18 05:40 11/29/18 05:40 11/29/18 11/29/18 11/29/18 04:55 05:40 05:40 WBC 9.5 RBC 4.34 L Hgb 12.3 L Hct 36.7 L MCV 85 MCH 28.4 MCHC 33.5 RDW 17.6 H Plt Count 144 L Seg Neutrophils % Not Reportable Lymphocytes % Not Reportable Monocytes % Not Reportable Eosinophils % Not Reportable Basophils % Not Reportable Absolute Neutrophils Not Reportable Absolute Lymphocytes Not Reportable Absolute Monocytes Not Reportable Absolute Eosinophils Not Reportable Absolute Basophils Not Reportable Carbonic Acid 1.41 H HCO3/H2CO3 Ratio 24:1 ABG pH 7.48 H ABG pCO2 46.9 H ABG pO2 59.6 L ABG HCO3 34.2 H ABG O2 Saturation 92.3 L ABG Base Excess 9.5 FiO2 40% Sodium 136.3 L Potassium 3.9 Chloride 92 L Carbon Dioxide 34 H Anion Gap 10 BUN 69 H Creatinine 1.80 H Est GFR ( Amer) 45 L Est GFR (Non-Af Amer) 37 L Glucose 191 H Calcium 8.4 11/17/18 11/17/18 11/17/18 02:57 02:57 02:57 Creatine Kinase 70 CK-MB (CK-2) 3.17 Troponin I 0.030 NT-Pro-B Natriuret Pep 3040 H 11/17/18 11/17/18 11/17/18 12:00 12:00 16:55 Creatine Kinase 51 L 59 CK-MB (CK-2) 3.38 Troponin I 0.026 NT-Pro-B Natriuret Pep 11/17/18 11/26/18 16:55 11:17 Creatine Kinase CK-MB (CK-2) 4.46 Troponin I 0.026 0.024 NT-Pro-B Natriuret Pep Impressions: Chest X-Ray 11/17/18 02:55 IMPRESSION: Small left lower lobar pneumonia/atelectasis. Recommend CR/CT surveillance including at 7-12 weeks following initiation of any clinically warranted therapy. Chest/Abdomen CTA 11/17/18 05:07 IMPRESSION: Cardiomegaly with no aortic dissection or aneurysm. No pulmonary embolus. Bilateral pneumonia with mediastinal adenopathy. Abdomen Ultrasound 11/26/18 00:00 IMPRESSION: No acute findings. Assessment & Plan - Diagnosis (1) Acute respiratory failure with hypoxia Is this a current diagnosis for this admission?: Yes Plan: Possibly from community acquired pneumonia and COPD exacerbation on top of having lung CA. Patient is currently saturating well on current BiPAP settings. 11/28: He was saturating well briefly on nasal cannula but complained of SOB and had to be placed back on BIPAP. Patient will be transitioned to comfort measures. (2) Pneumonia Is this a current diagnosis for this admission?: Yes Plan: On cefepime. 11/27: Discontinue antibiotics. He has received 10 days of IV antibiotics. Sputum culture was negative. (3) COPD exacerbation Is this a current diagnosis for this admission?: Yes Plan: 11/27: Reduced solumedrol to 40 mg q12h. Continue breathing treatments. (4) Squamous cell carcinoma of lung, stage IV Is this a current diagnosis for this admission?: Yes Plan: 11/27: Awaiting records from [facility] where he got diagnosed with stage 4 lung CA. Offered oncology consult again and patient says he rather prefers to discuss his prognosis with Dr. Lea rather than an oncologist. 11/28: Reviewed records from [facility]. He was found to have adenocarcinoma (lung as primary source) when pericardial biopsies were done during his recent CABG. There was noted lymph node invasion. Tumor markers were negative. Appreciate oncology input. - Time Time Spent with patient: 35 or more minutes
--- NOTE | 2018-11-29 13:31 | Progress Note ---
Provider Note Provider Note: ACP discussion: Rediscussed advanced directives and goals of care. with patient and on bedside this morning. Patient and family expressed they want to proceed with transitioning to hospice. Overnight, he did develop worsening SOB and continues to be BIPAP-dependent. This morning, he appears lethargic. He is able to tell me his name but not able to sustain a long conversation. Discussed with on bedside as well who verbalized to stop all his other medications and just focus on making him comfortable. She also verbalized, he is a DNR and also now a DNI as they initially expressed they were okay with short term intubation/ventilation. Discussed comfort measures protocol in length and she says this is what they want. Also discuss possible inpatient hospice if patient will qualify for it.
[2018-11-30] MEDS: MORPHINE SULFATE 10 MG/ML INJ IV PRN ×2 (00:49→10:47)
--- NOTE | 2018-11-30 12:09 | PDOC PROGRESS REPORT ---
Subjective Progress Note for:: 11/30/18 Subjective:: Mental status worsening, respiratory status worsening, family has decided on comfort care measures, BiPAP continue Reason For Visit: COPD CHF EXACERBATION BRONCHITIS Physical Exam Vital Signs: Temp Pulse Resp BP Pulse Ox 101.6 F H 88 24 H 163/58 H 94 11/29/18 10:44 11/30/18 02:00 11/30/18 08:27 11/29/18 10:44 11/29/18 16:00 Intake & Output 11/29/18 11/30/18 12/01/18 06:59 06:59 06:59 Intake Total 1235 506 Output Total 50 Balance 1235 456 Weight 86.5 kg 87 kg General appearance: PRESENT: mild distress Mouth exam: PRESENT: dry mucosa Respiratory exam: PRESENT: accessory muscle use, crackles Cardiovascular exam: PRESENT: tachycardia GI/Abdominal exam: PRESENT: normal bowel sounds, soft. ABSENT: distended, guarding, mass, organolmegaly, rebound, tenderness Rectal exam: PRESENT: deferred Neurological exam: PRESENT: altered Results Laboratory Results: 11/29/18 05:40 11/29/18 05:40 11/17/18 11/17/18 11/17/18 02:57 02:57 02:57 Creatine Kinase 70 CK-MB (CK-2) 3.17 Troponin I 0.030 NT-Pro-B Natriuret Pep 3040 H 11/17/18 11/17/18 11/17/18 12:00 12:00 16:55 Creatine Kinase 51 L 59 CK-MB (CK-2) 3.38 Troponin I 0.026 NT-Pro-B Natriuret Pep 11/17/18 11/26/18 16:55 11:17 Creatine Kinase CK-MB (CK-2) 4.46 Troponin I 0.026 0.024 NT-Pro-B Natriuret Pep Impressions: Chest X-Ray 11/17/18 02:55 IMPRESSION: Small left lower lobar pneumonia/atelectasis. Recommend CR/CT surveillance including at 7-12 weeks following initiation of any clinically warranted therapy. Chest/Abdomen CTA 11/17/18 05:07 IMPRESSION: Cardiomegaly with no aortic dissection or aneurysm. No pulmonary embolus. Bilateral pneumonia with mediastinal adenopathy. Abdomen Ultrasound 11/26/18 00:00 IMPRESSION: No acute findings. Assessment & Plan - Diagnosis (1) Malignant neoplasm of right upper lobe of lung Is this a current diagnosis for this admission?: Yes Plan: Family is decided on comfort care measures, will optimize comfort care. Today I had a long discussion with the family, went over what to expect in the next few days. Ultimately if the patient is stable through the weekend, we could try to see if he can be transferred to inpatient hospice. He is appropriate for inpatient hospice now but is not stable for transfer as of now. I believe is imminent within the next 7-14 days. Today spent 40 minutes in discussion and coordination of care. - Time Time Spent with patient: 35 or more minutes Anticipated discharge: Hospice - Inpatient Certification Based on my medical assessment, after consideration of the patient's comorbidities, presenting symptoms, or acuity I expect that the services needed warrant INPATIENT care.: Yes I certify that my determination is in accordance with my understanding of Medicare's requirements for reasonable and necessary INPATIENT services [42 CFR 412.3e].: Yes Medical Necessity: Need For Continuous Telemetry Monitoring, Need for Pain Contr ol, Risk of Complication if Not Cared For in Hospital
--- NOTE | 2018-11-30 15:33 | PDOC PROGRESS REPORT ---
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 He had a chest CT on admission which was suggestive of multifocal pneumonia with focal consolidation on the right and left lobes and COPD exacerbation. He was initially started on IV broad-spectrum antibiotics. Pulmonology was also consulted. 11/26: Patient complained of transient chest pain this morning. EKG and troponin were unremarkable. Upon encounter, he said chest pain was more of a heartburn sensation. He was given a GI cocktail which did relieve his symptoms. He says that he is still having shortness of breath but he appears comfortable and saturating well on BiPAP. 11/27: He says he gets SOB off the BIPAP but does say he's particularly more anxious when off the BIPAP. Hospice care transition was discussed with patient and and they are receptive about this but wants to talk to the rubber belt splicer first about the prognosis of his lung CA before definitively transitioning to home hospice. Rediscussed code status in length and both patient and say he does not want chest compressions or defibrillation but specifically verbalizes he is okay with intubation and short term ventilation if it comes to it and specified to only be kept on ventilation up to 3 days. 11/28: He was saturating well briefly on nasal cannula but complained of SOB and had to be placed back on BIPAP. and patient apparently became upset during hospice conversation with hospice team and wants to defer this service at this time. Patient and discussed with pulmonology who recommended hem/onc eval and both eventually agreed to seeing oncology. 11/29: Oncology discussed diagnosis and prognosis in length with patient and family last night. Patient and family expressed they want to proceed with transitioning to hospice. Overnight, he did develop worsening SOB and continues to be BIPAP-dependent. He did desaturate to the 70s. This morning, he appears lethargic. He is able to tell me his name but not able to sustain a long conversation. Discussed with on bedside as well who verbalized to stop all his other medications and just focus on making him comfortable. She also verbalize, he is a DNR and also now a DNI as they initially expressed they were okay with short term intubation/ventilation. Discussed comfort measures protocol in length and she says this is what they want. Also discuss possible inpatient hospice if patient will qualify for it. 11/30: Patient is on comfort measures. On encounter, he continues to be lethargic but is able to respond briefly to questions. says the rest of his chil dren/family are coming into town tomorrow to see him. Reason For Visit: COPD CHF EXACERBATION BRONCHITIS Physical Exam Vital Signs: Temp Pulse Resp BP Pulse Ox 101.6 F H 92 22 H 163/58 H 94 11/29/18 10:44 11/30/18 07:00 11/30/18 12:17 11/29/18 10:44 11/29/18 16:00 Intake & Output 11/29/18 11/30/18 12/01/18 06:59 06:59 06:59 Intake Total 1235 506 Output Total 50 Balance 1235 456 Weight 190 lb 11.198 oz 191 lb 12.835 oz General appearance: PRESENT: mild distress Head exam: PRESENT: atraumatic, normocephalic Eye exam: PRESENT: conjunctiva pink, EOMI, PERRLA. ABSENT: scleral icterus Ear exam: PRESENT: normal external ear exam Neck exam: ABSENT: carotid bruit, JVD, lymphadenopathy, thyromegaly Respiratory exam: PRESENT: rhonchi, wheezes Cardiovascular exam: PRESENT: RRR. ABSENT: diastolic murmur, rubs, systolic murmur Pulses: PRESENT: normal dorsalis pedis pul GI/Abdominal exam: PRESENT: normal bowel sounds, soft. ABSENT: distended, guarding, mass, organolmegaly, rebound, tenderness Rectal exam: PRESENT: deferred Neurological exam: PRESENT: altered Results Laboratory Results: 11/29/18 05:40 11/29/18 05:40 11/17/18 11/17/18 11/17/18 02:57 02:57 02:57 Creatine Kinase 70 CK-MB (CK-2) 3.17 Troponin I 0.030 NT-Pro-B Natriuret Pep 3040 H 11/17/18 11/17/18 11/17/18 12:00 12:00 16:55 Creatine Kinase 51 L 59 CK-MB (CK-2) 3.38 Troponin I 0.026 NT-Pro-B Natriuret Pep 11/17/18 11/26/18 16:55 11:17 Creatine Kinase CK-MB (CK-2) 4.46 Troponin I 0.026 0.024 NT-Pro-B Natriuret Pep Impressions: Chest X-Ray 11/17/18 02:55 IMPRESSION: Small left lower lobar pneumonia/atelectasis. Recommend CR/CT surveillance including at 7-12 weeks following initiation of any clinically warranted therapy. Chest/Abdomen CTA 11/17/18 05:07 IMPRESSION: Cardiomegaly with no aortic dissection or aneurysm. No pulmonary embolus. Bilateral pneumonia with mediastinal adenopathy. Abdomen Ultrasound 11/26/18 00:00 IMPRESSION: No acute findings. Assessment & Plan - Diagnosis (1) Acute respiratory failure with hypoxia Is this a current diagnosis for this admission?: Yes Plan: Possibly from community acquired pneumonia and COPD exacerbation on top of having lung CA. Patient is currently saturating well on current BiPAP settings. 11/28: He was saturating well briefly on nasal cannula but complained of SOB and had to be placed back on BIPAP. 11/29: Patient will be transitioned to comfort measures. 11/30: Remain on comfort measures. Rest of his children/family are coming into town tomorrow to see him. (2) Pneumonia Is this a current diagnosis for this admission?: Yes Plan: On cefepime. 11/27: Discontinue antibiotics. He has received 10 days of IV antibiotics. Sputum culture was negative. Now on comfort measures. (3) COPD exacerbation Is this a current diagnosis for this admission?: Yes Plan: 11/27: Reduced solumedrol to 40 mg q12h. Continue breathing treatments. 11/30: Now on comfort measures. (4) Squamous cell carcinoma of lung, stage IV Is this a current diagnosis for this admission?: Yes Plan: 11/27: Awaiting records from [facility] where he got diagnosed with stage 4 lung CA. Offered oncology consult again and patient says he rather prefers to discuss his prognosis with Dr. Lea rather than an oncologist. 11/28: Reviewed records from [facility]. He was found to have adenocarcinoma (lung as primary source) when pericardial biopsies were done during his recent CABG. There was noted lymph node invasion. Tumor markers were negative. Appreciate oncology input. 11/30: Now on comfort measures. - Time Time Spent with patient: 25-34 minutes
[2018-12-01 01:44] VITALS: BP 107/59
--- NOTE | 2018-12-01 16:34 | Death Summary ---
Summary Date : 12/01/18 Time of :: 03:50 Autopsy: No Resuscitation Status: Comfort Measures Only - Final Diagnosis (1) Acute respiratory failure with hypoxia Is this a current diagnosis for this admission?: Yes (2) Pneumonia Is this a current diagnosis for this admission?: Yes (3) COPD exacerbation Is this a current diagnosis for this admission?: Yes (4) Squamous cell carcinoma of lung, stage IV Is this a current diagnosis for this admission?: Yes Hospital Course:: This is a 72-year-old male with a past medical history of COPD, stage IV squamous cell carcinoma of the lungrefused therapy and oncology consult, CAD with CABG in Aug 2018 who initially presented with increasing shortness of breath. He had a chest CT on admission which was suggestive of multifocal pneumonia with focal consolidation on the right and left lobes and COPD exac erbation. He was initially started on IV broad-spectrum antibiotics. Pulmonology was also consulted. 11/26: Patient complained of transient chest pain this morning. EKG and troponin were unremarkable. Upon encounter, he said chest pain was more of a heartburn sensation. He was given a GI cocktail which did relieve his symptoms. He says that he is still having shortness of breath but he appears comfortable and saturating well on BiPAP. 11/27: He says he gets SOB off the BIPAP but does say he's particularly more anxious when off the BIPAP. Hospice care transition was discussed with patient and and they are receptive about this but wants to talk to the sodium chlorite operator first about the prognosis of his lung CA before definitively transitioning to home hospice. Rediscussed code status in length and both patient and say he does not want chest compressions or defibrillation but specifically verbalizes he is okay with intubation and short term ventilation if it comes to it and specified to only be kept on ventilation up to 3 days. 11/28: He was saturating well briefly on nasal cannula but complained of SOB and had to be placed back on BIPAP. and patient apparently became upset during hospice conversation with hospice team and wants to defer this service at this time. Patient and discussed with pulmonology who recommended hem/onc eval and both eventually agreed to seeing oncology. 11/29: Oncology discussed diagnosis and prognosis in length with patient and family last night. Patient and family expressed they want to proceed with transitioning to hospice. Overnight, he did develop worsening SOB and continues to be BIPAP-dependent. He did desaturate to the 70s. This morning, he appears lethargic. He is able to tell me his name but not able to sustain a long conversation. Discussed with on bedside as well who verbalized to stop all his other medications and just focus on making him comfortable. She also verbalize, he is a DNR and also now a DNI as they initially expressed they were okay with short term intubation/ventilation. Discussed comfort measures protocol in length and she says this is what they want. Also discuss possible inpatient hospice if patient will qualify for it. Also discussed with Dr. Castro who agreed about transition to comfort measures. 11/30: Patient is on comfort measures. On encounter, he continues to be lethargic but is able to respond briefly to questions. says the rest of his children/family are coming into town tomorrow to see him. 12/01: Patient on comfort measures. He early this morning at 3:50 AM.
--- NOTE | 2018-12-02 15:42 | PDOC PROGRESS REPORT ---
Subjective Progress Note for:: 11/27/18 Subjective:: Very dyspneic concerned with prognosis Reason For Visit: COPD CHF EXACERBATION BRONCHITIS Physical Exam Vital Signs: Temp Pulse Resp BP Pulse Ox 101.2 F H 104 H 26 H 107/59 L 95 11/30/18 08:40 11/30/18 14:00 12/01/18 03:40 11/30/18 08:40 11/30/18 08:40 Intake & Output 12/01/18 12/02/18 12/03/18 06:59 06:59 06:59 Intake Total 0 Balance 0 General appearance: PRESENT: cooperative, disheveled, mild distress, well- developed, well-nourished Head exam: PRESENT: atraumatic, normocephalic Eye exam: PRESENT: conjunctiva pale, EOMI. ABSENT: nystagmus Mouth exam: PRESENT: dry mucosa, neck supple, tongue midline Neck exam: ABSENT: carotid bruit, full ROM, JVD, lymphadenopathy, meningismus, tenderness, thyromegaly, tracheal deviation, tracheostomy, other Respiratory exam: PRESENT: decreased breath sounds, prolonged expiratory phas, rales, rhonchi, wheezes. ABSENT: retraction, stridor Cardiovascular exam: PRESENT: RRR, +S1, +S2, tachycardia Pulses: PRESENT: normal radial pulses GI/Abdominal exam: PRESENT: soft. ABSENT: tenderness Gentrourinary exam: PRESENT: indwelling catheter Extremities exam: ABSENT: calf tenderness, clubbing, joint swelling, pedal edema Musculoskeletal exam: ABSENT: deformity, dislocation Neurological exam: PRESENT: awake Psychiatric exam: PRESENT: appropriate affect Skin exam: PRESENT: dry, warm Results Laboratory Results: 11/29/18 05:40 11/29/18 05:40 11/17/18 11/17/18 11/17/18 02:57 02:57 02:57 Creatine Kinase 70 CK-MB (CK-2) 3.17 Troponin I 0.030 NT-Pro-B Natriuret Pep 3040 H 11/17/18 11/17/18 11/17/18 12:00 12:00 16:55 Creatine Kinase 51 L 59 CK-MB (CK-2) 3.38 Troponin I 0.026 NT-Pro-B Natriuret Pep 11/17/18 11/26/18 16:55 11:17 Creatine Kinase CK-MB (CK-2) 4.46 Troponin I 0.026 0.024 NT-Pro-B Natriuret Pep Impressions: Chest X-Ray 11/17/18 02:55 IMPRESSION: Small left lower lobar pneumonia/atelectasis. Recommend CR/CT surveillance including at 7-12 weeks following initiation of any clinically warranted therapy. Chest/Abdomen CTA 11/17/18 05:07 IMPRESSION: Cardiomegaly with no aortic dissection or aneurysm. No pulmonary embolus. Bilateral pneumonia with mediastinal adenopathy. Abdomen Ultrasound 11/26/18 00:00 IMPRESSION: No acute findings. Assessment & Plan - Diagnosis (1) Anxiety Is this a current diagnosis for this admission?: Yes Plan: Stressed about recent diet doses (2) COPD (chronic obstructive pulmonary disease) Qualifiers: COPD type: unspecified COPD Qualified Code(s): J44.9 - Chronic obstructive pulmonary disease, unspecified Is this a current diagnosis for this admission?: Yes Plan: Continue current bronchodilator therapy (3) Pneumonia Is this a current diagnosis for this admission?: Yes Plan: Despite opacities noted on chest x-ray did not think that antibiotic therapy would be of further use at this time as he has no leukocytosis borderline left shift and is afebrile (4) Squamous cell carcinoma of lung, stage IV Is this a current diagnosis for this admission?: Yes Plan: bilateral (5) Atrial fibrillation with rapid ventricular response Is this a current diagnosis for this admission?: Yes Plan: sTable at this time
== END 2018-12-01 03:50 | disposition expired | DRG 193 ==
LOC: ER 02:45 → OBSVTOIN 05:40 → EH 05:40 → 3S 08:13 → 4N 11-21 22:12
PROVIDERS: ADMIT Internal Medicine; ATTEND Internal Medicine
PROC: 5A09557 Assistance with Respiratory Ventilation, Greater than 96 Consecutive Hours, Continuous Positive Airway Pressure (ICD-10-PCS; principal; 2018-11-17)
DX: J18.9 Pneumonia, unspecified organism (principal); I50.43 Acute on chronic combined systolic (congestive) and diastolic (congestive) heart failure; J96.01 Acute respiratory failure with hypoxia; J44.0 Chronic obstructive pulmonary disease with (acute) lower respiratory infection; J44.1 Chronic obstructive pulmonary disease with (acute) exacerbation; N17.9 Acute kidney failure, unspecified; C34.11 Malignant neoplasm of upper lobe, right bronchus or lung; I13.0 Hypertensive heart and chronic kidney disease with heart failure and stage 1 through stage 4 chronic kidney disease, or unspecified chronic kidney disease; Z51.5 Encounter for palliative care; K59.00 Constipation, unspecified; N40.0 Benign prostatic hyperplasia without lower urinary tract symptoms; N18.3 Chronic kidney disease, stage 3 (moderate); E11.22 Type 2 diabetes mellitus with diabetic chronic kidney disease; F41.9 Anxiety disorder, unspecified; M19.90 Unspecified osteoarthritis, unspecified site; F32.9 Major depressive disorder, single episode, unspecified; I48.91 Unspecified atrial fibrillation; Z66 Do not resuscitate; F17.200 Nicotine dependence, unspecified, uncomplicated; I25.2 Old myocardial infarction; Z95.1 Presence of aortocoronary bypass graft; Z83.3 Family history of diabetes mellitus; Z82.49 Family history of ischemic heart disease and other diseases of the circulatory system; Z79.84 Long term (current) use of oral hypoglycemic drugs; Z79.899 Other long term (current) drug therapy; Z88.8 Allergy status to other drugs, medicaments and biological substances; Z99.81 Dependence on supplemental oxygen; Z88.3 Allergy status to other anti-infective agents
CPT/HCPCS: 36415; 36600; 71045; 71275; 76705; 80048; 80053; 80074; 82550; 82553; 82803; 82962; 83036; 83735; 83880; 84484; 85025; 87040; 87070; 87205; 93005; 93010; 93306; 93976; 94640; 94660; 94667; 94668; 94799; 96365; 99285; J0692; J1644; J1815; J2060; J2270; J2920; J3490; J7620; S0164